=== PATIENT | female | born 1940 | race Caucasian/White ===

== ENCOUNTER → 2018-02-18 10:32 | Outpatient (CLI) | payer MEDICARE, SELFPAY ==
[2018-02-18 11:58] LABS: Thyroid Stim Hormone (TSH) 0.88 uIU/mL (0.358-3.74)
== END ==
PROVIDERS: Family Provider Family Medicine; PCP Family Medicine; Visit Provider Family Medicine
DX: E03.9 Hypothyroidism, unspecified (principal)
CPT/HCPCS: 36415; 84443

== ENCOUNTER → 2018-04-30 11:04 | Outpatient (CLI) | payer MEDICARE, SELFPAY | PROVIDERS: Family Provider Family Medicine; PCP Family Medicine; Visit Provider Family Medicine | DX: Z12.11 Encounter for screening for malignant neoplasm of colon (principal) | CPT/HCPCS: 82274 ==

== ENCOUNTER → 2018-10-01 08:24 | Outpatient (CLI) | payer MEDICARE, SELFPAY ==
[2018-09-24 14:26] VITALS: BMI 31.3
[2018-10-01 12:38] LABS: Absolute Lymphocyte Count 1.71 X10^3/ul (0.83-4.51); Absolute Neutrophil Count 2.7 X10^3/uL (2.0-7.7); Basophil# 0.08 X10^3/uL; Basophil% 1.5 % (0-1); Eosinophil# 0.33 X10^3/uL; Eosinophils% 6.3 % (0-5); Hematocrit 37.5 % (37-47); Hemoglobin 11.6 g/dl (12.0-15.0); Lymphocyte # 1.71 X10^3/ul (4.0); Lymphocyte % 32.9 % (19-41); Mean Corp Hgb Conc 30.9 g/gl (32-36); Mean Corpuscular Hgb 31.2 pg (27.0-32.0); Mean Corpuscular Volume 100.8 fL (81-99); Mean Platelet Vol. 10.6 fl (6.2-12.0); Monocyte# 0.38 X10^3/uL; Monocyte% 7.3 % (0-10); Neutrophil # 2.69 X10^3/uL (2.7-7.7); Neutrophil % 51.8 % (47-70); Platelet Count 221 K/mm3 (150-450); RBC Distribution Width CV 14.5 % (11.6-14.6); RBC Distribution Width SD 52.8 fl (35.1-43.9); Red Blood Count 3.72 M/mm3 (4.2-5.4); White Blood Count 5.2 K/mm3 (4.4-11.0)
[2018-10-01 12:40] LABS: POSITIVE COUNT NO; POSITIVE DIFFERENTIAL NO; POSITIVE MORPHOLOGY NO
[2018-10-01 13:12] LABS: AST(SGOT) 18 U/L (15-37); Alanine Aminotransfer ALT/SGPT 21 U/L (13-56); Albumin, Serum 3.5 g/dL (3.2-5.0); Alkaline Phosphatase 76 U/L (45-117); Anion Gap 12 (5-15); BUN 28 mg/dL (7-18); BUN/Creat Ratio 23.7 RATIO (10-20); Calcium,Total 8.7 mg/dL (8.5-10.1); Chloride 109 mmol/L (98-107); Cholesterol 152 mg/dL (200); Creatinine, Serum 1.18 mg/dL (0.55-1.02); EST Glomerular Filtration Rate 47 mL/min (>60); Est Glom Filt Rate - Afr Amer 57 mL/min (>60); Globulin 3.4 g/dL (2.2-4.2); Glucose 87 mg/dL (74-106); High Density Lipoprotein 48 mg/dL; Potassium 3.3 mmol/L (3.5-5.1); Protein, Total 6.9 g/dL (6.4-8.2); Sodium Level 145 mmol/L (136-145); Thyroid Stim Hormone (TSH) 1.91 uIU/mL (0.358-3.74); Triglycerides 139 mg/dL; Uric Acid 5.1 mg/dL (2.6-6.0); Very Low Density Lipoprotein 28 mg/dL (5-40)
== END ==
PROVIDERS: Family Provider Family Medicine; PCP Family Medicine; Visit Provider Family Medicine
DX: I50.9 Heart failure, unspecified (principal); R55 Syncope and collapse; E03.9 Hypothyroidism, unspecified; E11.9 Type 2 diabetes mellitus without complications; M10.9 Gout, unspecified
CPT/HCPCS: 36415; 80053; 80061; 83036; 84443; 84550; 85025

== ENCOUNTER → 2018-10-03 09:45 | Outpatient (CLI) | payer MEDICARE, SELFPAY ==
[2018-09-24 14:26] VITALS: BMI 31.3
--- NOTE | 2018-10-03 09:56 | BD_ITS ---
STUDY: DUAL ENERGY X-RAY ABSORPTIOMETRY / DXA REASON FOR EXAM: Female, 78 years old. The patient is postmenopausal. Loss of height. TECHNIQUE: Bone Mineral Density (BMD) measurements of lumbar spine and bilateral hips were obtained. COMPARISON: Comparison is made with prior study dated April 23, 2014. FINDINGS: Lumbar Spine (L1-L4): g/cm2 (0.954) / T-score (-2.1) / Z-score (-0.2) Findings are suggestive of osteopenia with a moderate fracture risk. Left Femur Total: g/cm2 (0.735) / T-score (-2.2) / Z-score (-0.2) Left Femoral Neck: g/cm2 (0.748) / T-score (-2.1) / Z-score (0.0) Right Femur Total: g/cm2 (0.786) / T-score (-1.8) / Z-score (0.2) Right Femoral Neck: g/cm2 (0.800) / T-score (-1.7) / Z-score (0.4) The T-Scores on the most recent prior examination were: Lumbar Spine (L1-L4): There has been worsening of bone density since the previous examination. Left Femur Total: which represents a worsening of 16.3%. Right Femur Total: which represents a worsening of 9.8%. BD/Dexa Bone Density Study IMPRESSION: The patient is considered osteopenic as outlined below according to World Todd Organization (WHO) criteria with a moderate fracture risk. There has been worsening of bone density since the previous examination. Reference Information: The T-score is the number of standard deviations above or below the standard which is normal for young adults at their peak bone mineral density. The World Health Organization (WHO) interprets the T-scores as follows: Above -1 Normal bone density Between -1 and -2.5 Osteopenia Equal to / or below -2.5 Osteoporosis As a practical clinical guideline, osteopenia may be graded as follows: Mild -1 through -1.5 Moderate -1.6 through -2.0 Severe -2.1 through -2.4 The Z-score is the number of standard deviations above or below age-matched controls. A Z-score of less than -1.5 would be considered abnormal. References: 1. NIH Osteoporosis and Related Bone Diseases http://www.osteo.org 2. International Society for Clinical Densitometry http://www.iscd.org 3. National Osteoporosis Foundation http://www.nof.org Electronically Signed: Carlos Weeks, at 15:34 EST , Service support ,
== END ==
PROVIDERS: Family Provider Family Medicine; PCP Family Medicine; Referring Provider Family Medicine; Visit Provider Family Medicine
DX: Z78.0 Asymptomatic menopausal state (principal); M85.80 Other specified disorders of bone density and structure, unspecified site
CPT/HCPCS: 77080

== ENCOUNTER → 2018-12-24 | Outpatient (CLI) | payer MEDICARE, SELFPAY ==
[2018-12-24 13:26] VITALS: BMI 31.3
[2018-12-24 16:34] LABS: Microalbumin:Creatinine Ratio 193.9 mg/g CRE (<30 mg/g CRE)
== END | disposition home or self-care (01) ==
PROVIDERS: Family Provider Family Medicine; PCP Family Medicine; Referring Provider Family Medicine; Visit Provider Family Medicine
DX: E66.9 Obesity, unspecified (principal)
CPT/HCPCS: 82043; 82570

== ENCOUNTER → 2019-05-20 11:48 | Outpatient (CLI) | payer MEDICARE, SELFPAY ==
[2019-05-20 11:18] VITALS: BMI 32.4
[2019-05-20 13:02] LABS: Anion Gap 7 (5-15); BUN 37 mg/dL (7-18); Calcium,Total 9.4 mg/dL (8.5-10.1); Chloride 106 mmol/L (98-107); Creatinine, Serum 1.32 mg/dL (0.55-1.02); EST Glomerular Filtration Rate 41 mL/min (>60); Est Glom Filt Rate - Afr Amer 50 mL/min (>60); Glucose 84 mg/dL (74-106); Potassium 3.5 mmol/L (3.5-5.1); Sodium Level 137 mmol/L (136-145)
== END ==
PROVIDERS: Family Provider Family Medicine; PCP Family Medicine; Visit Provider Family Medicine
DX: E87.6 Hypokalemia (principal)
CPT/HCPCS: 36415; 80048

== ENCOUNTER → 2019-05-26 11:13 | Outpatient (CLI) | payer MEDICARE, SELFPAY ==
[2019-05-20 11:18] VITALS: BMI 32.4
== END ==
PROVIDERS: Family Provider Family Medicine; PCP Family Medicine; Referring Provider Family Medicine; Visit Provider Family Medicine
DX: R55 Syncope and collapse (principal)
CPT/HCPCS: 93225; 93226

== ENCOUNTER → 2019-09-16 10:09 | Outpatient (CLI) | payer MEDICARE, SELFPAY ==
[2019-09-16 09:42] VITALS: BMI 32.4
[2019-09-16 13:47] LABS: AST(SGOT) 19 U/L (15-37); Alanine Aminotransfer ALT/SGPT 24 U/L (13-56); Albumin, Serum 3.5 g/dL (3.2-5.0); Alkaline Phosphatase 60 U/L (45-117); Anion Gap 8 (5-15); BUN 31 mg/dL (7-18); BUN/Creat Ratio 25.2 RATIO (10-20); Calcium,Total 9.3 mg/dL (8.5-10.1); Chloride 113 mmol/L (98-107); Creatinine, Serum 1.23 mg/dL (0.55-1.02); EST Glomerular Filtration Rate 45 mL/min (>60); Est Glom Filt Rate - Afr Amer 54 mL/min (>60); Globulin 3.5 g/dL (2.2-4.2); Glucose 98 mg/dL (74-106); Potassium 3.9 mmol/L (3.5-5.1); Sodium Level 143 mmol/L (136-145); Thyroid Stim Hormone (TSH) 2.61 uIU/mL (0.358-3.74)
== END ==
PROVIDERS: PCP Family Medicine; Referring Provider Family Medicine; Visit Provider Family Medicine
DX: I50.9 Heart failure, unspecified (principal); E03.9 Hypothyroidism, unspecified
CPT/HCPCS: 36415; 80053; 84443

== ENCOUNTER → 2019-10-08 10:32 | Outpatient (CLI) | payer MEDICARE, SELFPAY ==
[2019-10-08 10:02] VITALS: BMI 32.4
[2019-10-08 12:41] LABS: Glucose 91 mg/dL (74-106)
[2019-10-08 13:35] LABS: Hemoglobin A1c 5.4 % (4.2-6.3)
== END ==
PROVIDERS: PCP Family Medicine; Referring Provider Family Medicine; Visit Provider Family Medicine
DX: E16.2 Hypoglycemia, unspecified (principal)
CPT/HCPCS: 36415; 82947; 83036

== ENCOUNTER → 2020-06-03 13:36 | Outpatient (CLI) | payer MEDICARE, SELFPAY ==
[2020-06-03 12:52] VITALS: BMI 33.2
[2020-06-03 15:35] LABS: ALB/GLOB Ratio 1.1 RATIO (0.9-2.4); AST(SGOT) 17 U/L (15-37); Alanine Aminotransfer ALT/SGPT 20 U/L (13-56); Albumin, Serum 3.7 g/dL (3.2-5.0); Alkaline Phosphatase 64 U/L (45-117); Anion Gap 8 (5-15); BUN 32 mg/dL (7-18); BUN/Creat Ratio 23.5 RATIO (10-20); Calcium,Total 9.3 mg/dL (8.5-10.1); Chloride 111 mmol/L (98-107); Creatinine, Serum 1.36 mg/dL (0.55-1.02); EST Glomerular Filtration Rate 40 mL/min (>60); Est Glom Filt Rate - Afr Amer 48 mL/min (>60); Globulin 3.4 g/dL (2.2-4.2); Glucose 118 mg/dL (74-106); Potassium 3.8 mmol/L (3.5-5.1); Protein, Total 7.1 g/dL (6.4-8.2); Sodium Level 142 mmol/L (136-145)
== END ==
PROVIDERS: PCP Family Medicine; Referring Provider Family Medicine; Visit Provider Family Medicine
DX: E78.2 Mixed hyperlipidemia (principal); E03.9 Hypothyroidism, unspecified
CPT/HCPCS: 36415; 80053

== ENCOUNTER → 2020-07-16 09:14 | Outpatient (CLI) | payer MEDICARE, SELFPAY ==
[2020-06-03 12:52] VITALS: BMI 33.2
[2020-07-08 09:56] VITALS: BMI 33.0
--- NOTE | 2020-07-16 09:20 | STEWCON_ITS ---
Reason For Study: CHEST PAIN Stress Results Protocol: Tone Protocol WITH DEFINITY Maximum Predicted HR: 139 bpm Target HR: 118 bpm % Maximum Predicted HR: 98 % DurationHeart Rate Stage (mm:ss) (bpm) BP Comment BASELINE 72 122/722 CC DEFINITY FOR ENTIRE TEST STAGE 1 3:42 136 146/80SOB AND LEG FATIGUE RECOVERY 84 138/82 Stress Duration: 3:42 mm:ss Maximum Stress HR: 136 bpm Baseline Echocardiogram Findings Stress Echo Wall motion Data Resting WM Intermediate WM Stress WM Interpretation Summary Exercise stress echo. 80-year-old lady with a history of hypertension and hyperlipidemia. Stress protocol: Resting EKG demonstrates normal sinus rhythm with a rate of 72 bpm normal intervals are noted. Resting blood pressure was 122/72 mmHg. The patient exercised according to the regular Tone protocol for a total duration of 3 minutes and 42 seconds. The maximum heart rate attained was 200 bpm which was 143% of max impacted heart rate. The maximum workload was 4.6 metabolic equivalents. The patient maintained sinus rhythm throughout the recording with occasional premature ventricular complexes noted especially during recovery. No clinical angina was noted the test was terminated due to dyspnea and inability to stand. The peak blood pressure was 182/92 mmHg. Stress echocardiogram. Stress echocardiographic images were performed with Definity enhancement and demonstrated an ejection fraction of approximately 45% with mild hypokinesis of the distal anterior wall and apex. The rest of the other tafoya appeared to be normally functioning. The stress echocardiographic images demonstrated worsening of contractility involving the distal anterior wall and apex suggesting ischemia in this territory. The other tafoya appeared to perfuse well. The estimated ejection fraction was 55%. Conclusion: Definity enhanced stress echocardiogram with evidence of anterior apical ischemia noted. Moderate functional aerobic impairment. Ordering Physician: Roni Greer Referring Physician: Roni Greer Performed By: Alvaro Paz RCS
== END ==
PROVIDERS: PCP Family Medicine; Referring Provider Family Medicine; Visit Provider Family Medicine
DX: R07.9 Chest pain, unspecified (principal)
CPT/HCPCS: 93017; 93350; Q9957; A4216; C8928

== ENCOUNTER → 2021-03-09 13:47 | Outpatient (CLI) | payer MEDICARE, SELFPAY ==
[2021-02-24 15:12] VITALS: BMI 35.2
--- NOTE | 2021-03-09 13:50 | ECHOD_ITS ---
Reason For Study: Edema Procedure This was a 2D Doppler, Color Flow transthoracic echocardiogram. Exam performed in department. Left Ventricle Normal LV size. Mild concentric left ventricular hypertrophy. Left ventricular systolic function is normal. The estimated ejection fraction is 55 %. Unable to assess diastolic dysfunction. No regional wall motion abnormalities noted. Right Ventricle Normal RV size. Normal systolic function. Atria The left atrium is moderately enlarged. Normal right atrium. No doppler evidence for ASD. Mitral Valve There is mild mitral annular calcification. Extension the mitral annular calcification on the base of the posterior mitral valve leaflet. Trivial mitral valve insufficiency. Tricuspid Valve Normal tricuspid valve. Trivial tricuspid valve insufficiency. Unable to estimate RV systolic pressure due to insufficient tricuspid regurgitant envelope. Aortic Valve Trisinus/trileaflet aortic valve. Mild focal aortic valve calcification. Trivial aortic valve insufficiency. Pulmonic Valve The pulmonic valve is not well visualized. Great Vessels Normal sized aortic root. Pericardium/Pleural No pericardial effusion. MMode/2D Measurements & Calculations LVIDd: 4.0 cm IVSd: 1.3 cm Ao root diam: 3.1 cm LVIDs: 2.8 cm LVPWd: 1.5 cm RVDd: 2.9 cm FS: 29.7 % LAV(MOD-bp): 87.2 ml LVAd ap4: 22.9 cm2 LVAd ap2: 22.8 cm2 LAV(MOD-bp) Indexed: 43.4 ml/m2 LVLd ap4: 7.0 cm LVLd ap2: 7.3 cm LAV(MOD-sp2): 76.4 ml EDV(MOD-sp4): 60.4 ml EDV(MOD-sp2): 57.9 ml LAV(MOD-sp4): 84.0 ml EDV(sp4-el): 63.3 ml EDV(sp2-el): 60.6 ml LVAs ap4: 13.2 cm2 LVAs ap2: 14.1 cm2 LVLs ap4: 6.0 cm LVLs ap2: 6.6 cm ESV(MOD-sp4): 24.2 ml ESV(MOD-sp2): 24.3 ml ESV(sp4-el): 24.6 ml ESV(sp2-el): 25.5 ml EF(MOD-sp4): 59.9 % EF(MOD-sp2): 58.1 % EF(sp4-el): 61.2 % SV(MOD-sp4): 36.2 ml SV(MOD-sp2): 33.7 ml SV(sp4-el): 38.7 ml LA dimension(2D): 5.0 cm LA A4 area: 26.6 cm2 RA A4 area: 16.2 cm2 Doppler Measurements & Calculations MV E max kizzy: 113.1 cm/sec Ao V2 max: 131.4 cm/sec LV V1 max: 104.1 cm/sec Ao max P.9 mmHg LV V1 max P.3 mmHg Ao V2 mean: 96.2 cm/sec Ao mean P.0 mmHg Ao V2 VTI: 26.1 cm PA V2 max: 78.3 cm/sec ECHO/Echo Complete Interpretation Summary Left ventricular systolic function is normal. The estimated ejection fraction is 55 %. Mild concentric left ventricular hypertrophy. The left atrium is moderately enlarged. There is mild mitral annular calcification. Extension the mitral annular calcification on the base of the posterior mitral valve leaflet. Trivial mitral valve insufficiency. Trivial tricuspid valve insufficiency. Mild focal aortic valve calcification. Trivial aortic valve insufficiency. Unable to estimate RV systolic pressure due to insufficient tricuspid regurgita nt envelope. Unable to assess diastolic dysfunction. Ordering Physician: Elliott Farley Referring Physician: Roni Greer Performed By: Estela Frausto, RDCS, RVT
== END ==
PROVIDERS: PCP Family Medicine; Referring Provider Internal Medicine Cardiovascular Disease; Visit Provider Internal Medicine Cardiovascular Disease
DX: I50.22 Chronic systolic (congestive) heart failure (principal); R60.9 Edema, unspecified; I42.8 Other cardiomyopathies; I48.91 Unspecified atrial fibrillation; E78.2 Mixed hyperlipidemia
CPT/HCPCS: 93306

== ENCOUNTER 2021-11-29 10:00 | Outpatient (RCR) | payer MEDICARE, SELFPAY ==
[2021-11-15 10:05] VITALS: BP 153/77; PULSE 82; RESP 16; TEMP 36.7; BMI 33.3
--- NOTE | 2021-11-15 16:54 | HP.PCM_ITS ---
History of Present Illness Date of Service: 11/15/21 Chief Complaint: Severe swelling and edema of the lower extremities bilaterally History of Wound: This is an 81-year-old female who presented with swelling and edema in both lower extremities. This has been occurring for approximately 3 years. It has become progressively more severe. During the last several years, the patient has become less active. She spends long periods of time sitting at home throughout the day. She ambulates very slowly and deliberately, shuffling her feet. She claims to sleep on a flat mattress at night. The swelling is said to be worse late each day. She has previously experienced an ulceration in the left distal pretibial area, approximately 6 months ago, which healed spontaneously. She has a history of superficial thrombophlebitis in the left leg, approximately 30 years ago. She underwent left lower extremity vein stripping approximately 20 years ago as well. [facility] Medical History (Updated 11/15/21 @ 17:[address] Judd Espino MD) Abnormal stress test Anemia Arthritis Atrial fibrillation with RVR (12/03/14) Bray angioma Chronic kidney disease (CKD) Chronic systolic (congestive) heart failure Debility Dependent edema Eczema Edema Hemorrhoids History of DVT (deep vein thrombosis) History of non-ST elevation myocardial infarction (NSTEMI) (12/03/14) HLD (hyperlipidemia) Hyperpigmentation Hypomagnesemia Hypothyroidism Inactivity Leg edema Leg swelling Non-ischemic cardiomyopathy Obesity Osteoporosis Osteoporosis Postoperative atrial fibrillation (12/03/14) Postphlebitic syndrome with inflammation Rosacea Syncope Weight loss, abnormal Home Medications docusate sodium 100 mg capsule 100 mg PO DAILY #90 cap 10/25/17 [Rx Last Taken Unknown] vit [id number] 500 mg-50 mg-25 mg-40 mg tablet tab PO 04/06/20 [History Last Taken Unknown] calcium carbonate 600 mg calcium (1,500 mg) tablet 600 mg PO DAILY #90 tab 10/06/20 [Rx Last Taken Unknown] aspirin 81 mg tablet,delayed release 81 mg PO DAILY #90 tablet 11/18/20 [Rx Last Taken Unknown] topiramate 50 mg tablet 50 mg PO QHS #30 tab 12/15/20 [Rx Last Taken Unknown] metoprolol tartrate 25 mg tablet 25 mg PO BID #180 tab 05/31/21 [Rx Last Taken Unknown] potassium chloride 10 mEq capsule,extended release 10 meq PO BID #180 cap 06/07/21 [Rx Last Taken Unknown] liraglutide 0.6 mg/0.1 mL (18 mg/3 mL) subcutaneous pen injector 1.8 mg SC Q24H #9 ml 06/08/21 [Rx Last Taken Unknown] pravastatin 20 mg tablet 20 mg PO QHS #90 tab 06/08/21 [Rx Last Taken Unknown] celecoxib 200 mg capsule 200 mg PO QDAY #90 cap 07/13/21 [Rx Last Taken Unknown] hydrochlorothiazide 25 mg tablet 25 mg PO QAM #90 tab 07/13/21 [Rx Last Taken Unknown] levothyroxine 25 mcg tablet 25 mcg PO DAILY #90 tab 07/13/21 [Rx Last Taken Unknown] pen needle, diabetic 32 gauge x 1/5 #100 ea 07/13/21 [Rx Last Taken Unknown] allopurinol 100 mg tablet 100 mg PO DAILY #90 tab 09/13/21 [Rx Last Taken Unknown] naltrexone 8 mg-bupropion 90 mg tablet,extended release 1 tab PO ONCE #30 tab 09/13/21 [Rx Last Taken Unknown] Allergy/AdvReac Type Severity Reaction Status Date / Time fluoxetine HCl [From Prozac] Allergy Unknown Verified 09/13/21 09:53 Family History Mother Hypertension Heart disease Colon cancer Surgical History History of knee replacement History of vein stripping Social History Smoking Status: Never smoker how long ago did patient quit smokin alcohol intake: current alcohol intake frequency: holidays/special occasions only substance use type: does not use what type of physical activity do you participate in: aerobics and weight training frequency: 3-4 times per week Vital Signs Vital Signs Vital Signs: 11/15/21 10:05 Temperature 98.0 F Temperature Source Temporal Pulse Rate 82 Respiratory Rate 16 Blood Pressure 153/77 H Blood Pressure Mean 102 Blood Pressure Source Monitor Blood Pressure Position Semi-Fowlers Blood Pressure Location Left Arm Weight Weight: 200 lb Body Mass Index (BMI) 33.3 Physical Exam Const alert, oriented x3, no apparent distress and well nourished Constitutional Narrative: The patient is obese. General Appearance: cooperative, comfortable, well kempt and well developed Orientation / Consciousness: awake, oriented to person, oriented to place and oriented to time HEENT normocephalic and head/scalp atraumatic Head and Scalp: normal to inspection, normocephalic and atraumatic External Ear: external ears normal Eyes PERRL and EOMs intact bilaterally General Eye: normal appearance of both eyes Resp normal respiratory effort, normal air movement, no retractions and no use of accessory muscles Effort and Inspection: able to speak in complete sentences Extremity no calf tenderness General Extremity: Negative for clubbing or cyanosis Skin Wound Narrative: There are no toney open wounds or ulcerations in the patient's lower extremities. Bilateral lower extremity edema is noted. Bilateral hemosiderin staining and lipodermatosclerosis are noted in the gaiter areas bilaterally, particularly on the left. A well-healed vertical total knee replacement scar is noted on the right. Neuro oriented x3, CN's II-XII intact bilaterally and moves all extremities Sensorium / Orientation: awake, alert, oriented to person, oriented to place and oriented to time Psych Appearance: grossly normal and appropriate Attitude: calm Activity / Motor Behavior: appropriate eye contact Speech: normal speech Mood & Affect: euthymic mood Thought Process: normal thought process Thought Content: normal thought content Attention / Concentration: attention grossly intact Debridement Note Debridement Note No debridement was completed: No debridement was completed today (There are no open wounds or ulcerations.) Post-Debridement Measurements and Additional Note: Post-Debridement Measurements/Treatment - Nurse 1 - General Ulcer Assessment Start: 11/15/21 10:05 Freq: Status: Active Protocol: [email or web address] Activity Type Activity Date Activity User E-Sign Co-Sign Detail Recorded Client Recorded Date Recorded By Document 11/15/21 10:05 ZACHERY [id number] 11/15/21 10:24 ZACHERY 11/15/21 10:05 - Today's Visit Information Type of service Initial Visit Arrival Mode Ambulatory Patient Identification Verified (Name & Yes ) Patient Requires Transmission-Based No Precautions Height and Weight Height 5 ft 5 in Weight 200 lb Weight in Pounds 200.0 lbs Body Mass Index (BMI) 33.3 BMI Classification Obese BSA - Justine 1.98 Vital Signs Temperature (97.8 F-99.1 F) 98.0 F Temperature Source Temporal Pulse Rate (60-100) 82 Pulse Location Monitor Respiratory Rate (12-18) 16 Respiratory rate source Observation Blood Pressure (90/60-120/80) 153/77 H Blood Pressure Mean 102 Source Monitor Position Semi-Fowlers Blood Pressure Location Left Arm History Since Last Visit- (Skip if this is Patient's initial visit) Left Footwear Regular Shoe Right Footwear Regular Shoe Pain Scale: 0-10 Numeric Is Patient Pain Free? Yes Lower Extremity Assessment/ Foot Assessment/ Toe Nail Assessment Right -Posterior Tibial Palpable Yes -Posterior Tibial Doppler Multiphasic -Dorsalis Pedis Palpable Yes -Dorsalis Pedis Doppler Multiphasic -Extremity Color Hyperpigmented, Hemosiderin -Hair Growth on Legs No -Hair Growth on Toes No -Temperature of Extremity Warm -Capillary Refill Greater than 3 Seconds -Dependent Rubor Yes -Blanched when Elevated No -Lipodermatosclerosis No -Other Deformity No -Prior Foot Ulcer No -Charcot Joint No -Prior Amputation No -Thick Yes -Discolored Yes -Deformed Yes -Improper Length & Hygeine No Left -Posterior Tibial Palpable Yes -Posterior Tibial Doppler Multiphasic -Dorsalis Pedis Palpable Yes -Dorsalis Pedis Doppler Multiphasic -Extremity Color Hyperpigmented, Hemosiderin -Hair Growth on Legs No -Hair Growth on Toes No -Temperature of Extremity Warm -Capillary Refill Greater than 3 Seconds -Dependent Rubor Yes -Blanched when Elevated No -Lipodermatosclerosis No -Other Deformity No -Prior Foot Ulcer No -Charcot Joint No -Prior Amputation No -Thick Yes -Discolored Yes -Deformed Yes -Improper Length & Hygeine No Communication Assessment Preferred language Welsh Flight Superintendent Required No Able to Read Yes Able to Write Yes Communication Tools None Caregiver Communication Skills No Impairment Impairment Right Hearing Abillity Normal Left Hearing Abillity Normal Visual Assistive Devices Glasses Teaching Assessment Preferences Verbal,Written, Audio/Visual, Demonstration Barriers to Learning None Readiness To Learn Good Willingness to Engage in Self Management Med Activies Readiness to Engage in Self Management Med Activities Anxiety Level Anxious Cooperation Cooperative Perception Coherent Interest in Health Problem Asks Questions Education Importance Acknowledges Need Does Patient Smoke tobacco or other No substances Smoking Status Never smoker Is Patient Diabetic No Functional Assessment Recent Decline in Ability to Perform Denies Any Declines Culture/Sabianist/Folding Machine Operator Cultural/Sabianist Needs that may affect No Treatment Plan Would you allow our hospital waste management recycling technician to No meet you for the purpose of spiritual/ emotional support? Folding Machine Operator to contact place of nondenominational No Teaching: Wound Center [facility] Orientation/ Contacting Physician -Person Taught Patient -Teaching Method Discussion, Demonstration -Response to teaching Return demonstration, Verbalize understanding - Nurse 1 - General Ulcer Measurement Start: 11/15/21 10:05 Freq: Status: Active Protocol: Activity Type Activity Date Activity User E-Sign Co-Sign Detail Recorded Client Recorded Date Recorded By Document 11/15/21 10:05 [id number] 11/15/21 10:24 11/15/21 10:05 Wound Center Nurse 1 Lower Limb Edema Present Yes Right Calf (cm) 43.0 Right Ankle (cm) 24.2 Left Calf (cm) 44.1 Left Ankle (cm) 21.6 - Nurse 3 - General Ulcer D/C NN Start: 11/15/21 10:05 Freq: Status: Active Protocol: Activity Type Activity Date Activity User E-Sign Co-Sign Detail Recorded Client Recorded Date Recorded By Document 11/15/21 11:15 [id number] 11/15/21 11:15 11/15/21 11:15 Wound Care Nurse 3 Left -Lotion applied to leg before Yes compression wrap -Multi-Layered Wrap Application Multi-Layer Comp - Bilat ($ ) Pain Scale: 0-10 Numeric Is Patient Pain Free? Yes - Visit Discharge Discharge Condition Stable Ambulatory Status Ambulatory Transportation Private Auto Medication Reconcilliation completed & Yes provided to patient/care provider Clinical Summary of Care Provided Yes Assessment/Plan Assessment/Plan (1) Leg edema: CODE(S): R60.0 - Localized edema (2) Leg swelling: CODE(S): M79.89 - Other specified soft tissue disorders (3) Dependent edema: CODE(S): R60.9 - Edema, unspecified (4) Hyperpigmentation: CODE(S): L81.9 - Disorder of pigmentation, unspecified (5) Lipodermatosclerosis of left lower extremity: CODE(S): I83.12 - Varicose veins of left lower extremity with inflammation (6) Obesity (BMI 30.0-34.9): CODE(S): E66.9 - Obesity, unspecified (7) Non-ischemic cardiomyopathy: CODE(S): I42.8 - Other cardiomyopathies (8) Atrial fibrillation with RVR: CODE(S): I48.91 - Unspecified atrial fibrillation (9) History of non-ST elevation myocardial infarction (NSTEMI): CODE(S): I25.2 - Old myocardial infarction (10) Chronic systolic (congestive) heart failure: CODE(S): I50.22 - Chronic systolic (congestive) heart failure (11) HLD (hyperlipidemia): CODE(S): E78.5 - Hyperlipidemia, unspecified QUALIFIERS: Hyperlipidemia type: mixed hyperlipidemia Qualified Code(s): E78.2 - Mixed hyperlipidemia (12) Hypothyroidism: CODE(S): E03.9 - Hypothyroidism, unspecified QUALIFIERS: Hypothyroidism type: acquired Qualified Code(s): E03.9 - Hypothyroidism, unspecified (13) Chronic kidney disease (CKD): CODE(S): N18.9 - Chronic kidney disease, unspecified QUALIFIERS: Chronic kidney disease stage: stage 2 (mild) Qualified Code(s): N18.2 - Chronic kidney disease, stage 2 (mild) (14) Postphlebitic syndrome with inflammation: CODE(S): I87.029 - Postthrombotic syndrome with inflammation of unspecified lower extremity (15) Debility: CODE(S): R53.81 - Other malaise (16) Inactivity: CODE(S): Z72.3 - Lack of physical exercise (17) Osteoporosis: CODE(S): M81.0 - Age-related osteoporosis without current pathological fracture PLAN: This is an 81-year-old female who was advanced age, limited activity, and long periods of daily sitting each day have resulted in chronic lower extremity swelling and associated skin changes. The skin changes include hemosiderin staining, hyperpigmentation, and lipodermatosclerosis. She has a recent history of transient ulceration in the distal left lower extremity, which has spontaneously healed. We have discussed a management protocol, which is to include leg elevation. Patient's legs are to be elevated to heart level, or higher. This is to be implemented while sleeping, and as much as possible during daytime hours. Activity has been encouraged, though the patient's debility and physical limitations are unlikely to allow significant enhancement of activity. The patient is to avoid prolonged idle sitting and standing. Weight loss has been recommended. We are to implement compression to the lower extremities by means of 3M 2 layer compression wraps, which will be changed twice weekly. Patient is to return in 1 week for reassessment. It is anticipated that the aforementioned measures will diminish the swelling and edema in the patient's lower extremities, following which we can employ the use of CircAid Velcro compression garments or graduated compression stockings for long-term use, in an effort to minimize swelling in the patient's lower extremities long-term. Total time: 29 minutes
[2021-11-18 11:25] VITALS: BMI 33.3
[2021-11-18 11:26] VITALS: BP 125/87; PULSE 68; TEMP 36.1; BMI 33.3
[2021-11-23 08:11] VITALS: BP 166/72; PULSE 73; RESP 16; TEMP 36.6; BMI 33.3
[2021-11-29 10:05] VITALS: BP 187/75; PULSE 79; TEMP 36.4; BMI 33.3
--- NOTE | 2021-11-29 13:00 | PCM.WC.HP ---
History of Present Illness Date of Service: 11/29/21 Chief Complaint: Severe swelling and edema of the lower extremities bilaterally History of Wound: This is an 81-year-old female who presented with swelling and edema in both lower extremities. This has been occurring for approximately 3 years. It has become progressively more severe. During the last several years, the patient has become less active. She spends long periods of time sitting at home throughout the day. She ambulates very slowly and deliberately, shuffling her feet. She claims to sleep on a flat mattress at night. The swelling is said to be worse late each day. She has previously experienced an ulceration in the left distal pretibial area, approximately 6 months ago, which healed spontaneously. She has a history of superficial thrombophlebitis in the left leg, approximately 30 years ago. She underwent left lower extremity vein stripping approximately 20 years ago as well. [facility] Medical History Abnormal stress test Anemia Arthritis Atrial fibrillation with RVR (12/03/14) Bray angioma Chronic kidney disease (CKD) Chronic systolic (congestive) heart failure Debility Dependent edema Eczema Edema Hemorrhoids History of DVT (deep vein thrombosis) History of non-ST elevation myocardial infarction (NSTEMI) (12/03/14) HLD (hyperlipidemia) Hyperpigmentation Hypomagnesemia Hypothyroidism Inactivity Leg edema Leg swelling Non-ischemic cardiomyopathy Obesity Osteoporosis Osteoporosis Postoperative atrial fibrillation (12/03/14) Postphlebitic syndrome with inflammation Rosacea Syncope Weight loss, abnormal Home Medications docusate sodium 100 mg capsule 100 mg PO DAILY #90 cap 10/25/17 [Rx Last Taken Unknown] vit [id number] 500 mg-50 mg-25 mg-40 mg tablet tab PO 04/06/20 [History Last Taken Unknown] calcium carbonate 600 mg calcium (1,500 mg) tablet 600 mg PO DAILY #90 tab 10/06/20 [Rx Last Taken Unknown] aspirin 81 mg tablet,delayed release 81 mg PO DAILY #90 tablet 11/18/20 [Rx Last Taken Unknown] topiramate 50 mg tablet 50 mg PO QHS #30 tab 12/15/20 [Rx Last Taken Unknown] metoprolol tartrate 25 mg tablet 25 mg PO BID #180 tab 05/31/21 [Rx Last Taken Unknown] potassium chloride 10 mEq capsule,extended release 10 meq PO BID #180 cap 06/07/21 [Rx Last Taken Unknown] liraglutide 0.6 mg/0.1 mL (18 mg/3 mL) subcutaneous pen injector 1.8 mg SC Q24H #9 ml 06/08/21 [Rx Last Taken Unknown] pravastatin 20 mg tablet 20 mg PO QHS #90 tab 06/08/21 [Rx Last Taken Unknown] celecoxib 200 mg capsule 200 mg PO QDAY #90 cap 07/13/21 [Rx Last Taken Unknown] levothyroxine 25 mcg tablet 25 mcg PO DAILY #90 tab 07/13/21 [Rx Last Taken Unknown] pen needle, diabetic 32 gauge x 1/5 #100 ea 07/13/21 [Rx Last Taken Unknown] allopurinol 100 mg tablet 100 mg PO DAILY #90 tab 09/13/21 [Rx Last Taken Unknown] naltrexone 8 mg-bupropion 90 mg tablet,extended release 1 tab PO ONCE #30 tab 09/13/21 [Rx Last Taken Unknown] hydrochlorothiazide 25 mg tablet 25 mg PO QAM #90 tab 11/16/21 [Rx Last Taken Unknown] Allergy/AdvReac Type Severity Reaction Status Date / Time fluoxetine HCl [From Prozac] Allergy Unknown Verified 11/16/21 10:43 Family History Mother Hypertension Heart disease Colon cancer Surgical History History of knee replacement History of vein stripping Social History Smoking Status: Never smoker how long ago did patient quit smokin alcohol intake: current alcohol intake frequency: holidays/special occasions only substance use type: does not use what type of physical activity do you participate in: aerobics and weight training frequency: 3-4 times per week Vital Signs Vital Signs Vital Signs: 11/29/21 10:05 Temperature 97.5 F L Temperature Source Temporal Pulse Rate 79 Blood Pressure 187/75 H Blood Pressure Mean 112 Blood Pressure Source Monitor Blood Pressure Position Sitting Blood Pressure Location Right Arm Weight Weight: 200 lb Body Mass Index (BMI) 33.3 Physical Exam Const alert, oriented x3, no apparent distress and well nourished Constitutional Narrative: The patient is obese. General Appearance: cooperative, comfortable, well kempt and well developed Orientation / Consciousness: awake, oriented to person, oriented to place and oriented to time HEENT normocephalic and head/scalp atraumatic Head and Scalp: normal to inspection, normocephalic and atraumatic External Ear: external ears normal Eyes PERRL and EOMs intact bilaterally General Eye: normal appearance of both eyes Resp normal respiratory effort, normal air movement, no retractions and no use of accessory muscles Effort and Inspection: able to speak in complete sentences Extremity no calf tenderness Extremity Narrative: There are no open wounds or ulcerations in the patient's lower extremities. Moderate swelling and edema are noted in the patient's lower extremities bilaterally. Hemosiderin staining and lipodermatosclerosis are noted in the gaiter areas bilaterally, particularly on the left. A well-healed vertical total knee replacement scar is noted on the right. General Extremity: Negative for clubbing or cyanosis Skin Wound Narrative: There are no open wounds or ulcerations in the lower extremities. Neuro oriented x3, CN's II-XII intact bilaterally and moves all extremities Sensorium / Orientation: awake, alert, oriented to person, oriented to place and oriented to time Psych Appearance: grossly normal and appropriate Attitude: calm Activity / Motor Behavior: appropriate eye contact Speech: normal speech Mood & Affect: euthymic mood Thought Process: normal thought process Thought Content: normal thought content Attention / Concentration: attention grossly intact Debridement Note Debridement Note No debridement was completed: No debridement was completed today (There are no open wounds or ulcerations.) Post-Debridement Measurements and Additional Note: Post-Debridement Measurements/Treatment BRY - Nurse 1 - General Ulcer Assessment Start: 11/15/21 10:05 Freq: Status: Active Protocol: MARY JO Activity Type Activity Date Activity User E-Sign Co-Sign Detail Recorded Client Recorded Date Recorded By Document 11/15/21 10:05 ZACHERY [id number] 11/15/21 10:24 JF Document 11/18/21 11:25 KR [id number] 11/18/21 11:26 KR Document 11/18/21 11:26 KR [id number] 11/18/21 11:27 KR Document 11/23/21 08:11 [facility] [id number] 11/23/21 08:17 BM Document 11/29/21 10:05 KR [id number] 11/29/21 10:10 KR 11/15/21 11/18/21 11/18/21 10:05 11:25 11:26 WC - Today's Visit Information Type of service Initial Visit Nurse-only Visit Arrival Mode Ambulatory Ambulatory,Cane Transfer Assistance Patient Identification Verified (Name & Yes Yes ) Patient Requires Transmission-Based No Precautions Height and Weight Height 5 ft 5 in Weight 200 lb Weight in Pounds 200.0 lbs Body Mass Index (BMI) 33.3 33.3 33.3 BMI Classification Obese Obese Obese BSA - Justine 1.98 Vital Signs Temperature (97.8 F-99.1 F) 98.0 F 97.0 F L Temperature Source Temporal Temporal Temporal Pulse Rate (60-100) 82 68 Pulse Location Monitor Monitor Monitor Respiratory Rate (12-18) 16 Respiratory rate source Observation Oxygen Delivery Method Blood Pressure (90/60-120/80) 153/77 H 125/87 H Blood Pressure Mean 102 99 Source Monitor Monitor Monitor Position Semi-Fowlers Sitting Semi-Fowlers Blood Pressure Location Left Arm Left Arm Left Arm Have you changed medications since your No last visit? Any new allergies or adverse reactions No Had a fall/change in ADL's that may No increase risk of falls Signs or symptoms of abuse and/or No neglect since last visit Have you been in the hospital since your No last visit? Has dressing in place as prescribed Yes Has compression in place as prescribed Yes Has offloadiing in place as prescribed N/A Experienced any changes in pain level or No management History Since Last Visit- (Skip if this is Patient's initial visit) Left Footwear Regular Shoe Regular Shoe Right Footwear Regular Shoe Regular Shoe Pain Scale: 0-10 Numeric Is Patient Pain Free? Yes Yes Yes Lower Extremity Assessment/ Foot Assessment/ Toe Nail Assessment Right -Posterior Tibial Palpable Yes -Posterior Tibial Doppler Multiphasic -Dorsalis Pedis Palpable Yes -Dorsalis Pedis Doppler Multiphasic -Extremity Color Hyperpigmented, Hemosiderin -Hair Growth on Legs No -Hair Growth on Toes No -Temperature of Extremity Warm -Capillary Refill Greater than 3 Seconds -Dependent Rubor Yes -Blanched when Elevated No -Lipodermatosclerosis No -Other Deformity No -Prior Foot Ulcer No -Charcot Joint No -Prior Amputation No -Thick Yes -Discolored Yes -Deformed Yes -Improper Length & Hygeine No Left -Posterior Tibial Palpable Yes -Posterior Tibial Doppler Multiphasic -Dorsalis Pedis Palpable Yes -Dorsalis Pedis Doppler Multiphasic -Extremity Color Hyperpigmented, Hemosiderin -Hair Growth on Legs No -Hair Growth on Toes No -Temperature of Extremity Warm -Capillary Refill Greater than 3 Seconds -Dependent Rubor Yes -Blanched when Elevated No -Lipodermatosclerosis No -Other Deformity No -Prior Foot Ulcer No -Charcot Joint No -Prior Amputation No -Thick Yes -Discolored Yes -Deformed Yes -Improper Length & Hygeine No Communication Assessment Preferred language [place] Inspector Plating Required No Able to Read Yes Able to Write Yes Communication Tools None Caregiver Communication Skills No Impairment Impairment Right Hearing Abillity Normal Left Hearing Abillity Normal Visual Assistive Devices Glasses Teaching Assessment Preferences Verbal,Written, Audio/Visual, Demonstration Barriers to Learning None Readiness To Learn Good Willingness to Engage in Self Management Med Activies Readiness to Engage in Self Management Med Activities Anxiety Level Anxious Cooperation Cooperative Perception Coherent Interest in Health Problem Asks Questions Education Importance Acknowledges Need Does Patient Smoke tobacco or other No substances Smoking Status Never smoker Is Patient Diabetic No Functional Assessment Recent Decline in Ability to Perform Denies Any Declines Culture/Rastafarian/Office Machine Servicer Cultural/Rastafarian Needs that may affect No Treatment Plan Would you allow our hospital network admin to No meet you for the purpose of spiritual/ emotional support? Office Machine Servicer to contact place of episcopalian No Teaching: Wound Center [facility] Orientation/ Contacting Physician -Person Taught Patient -Teaching Method Discussion, Demonstration -Response to teaching Return demonstration, Verbalize understanding 11/23/21 11/29/21 08:11 10:05 - Today's Visit Information Type of service Nurse-only Follow-up Visit Visit (Physician/SCHOOL TEACHER ) Arrival Mode Ambulatory Ambulatory Transfer Assistance None Patient Identification Verified (Name & Yes Yes ) Patient Requires Transmission-Based No Precautions Height and Weight Height Weight Weight in Pounds Body Mass Index (BMI) 33.3 33.3 BMI Classification Obese Obese BSA - Justine Vital Signs Temperature (97.8 F-99.1 F) 97.8 F 97.5 F L Temperature Source Temporal Temporal Pulse Rate (60-100) 73 79 Pulse Location Monitor Monitor Respiratory Rate (12-18) 16 Respiratory rate source Observation Oxygen Delivery Method Room Air Blood Pressure (90/60-120/80) 166/72 H 187/75 H Blood Pressure Mean 103 112 Source Monitor Monitor Position Sitting Sitting Blood Pressure Location Left Arm Right Arm Have you changed medications since your No No last visit? Any new allergies or adverse reactions No No Had a fall/change in ADL's that may No No increase risk of falls Signs or symptoms of abuse and/or No No neglect since last visit Have you been in the hospital since your No No last visit? Has dressing in place as prescribed No No Has compression in place as prescribed No Yes Has offloadiing in place as prescribed N/A N/A Experienced any changes in pain level or No No management History Since Last Visit- (Skip if this is Patient's initial visit) Left Footwear Regular Shoe Regular Shoe Right Footwear Regular Shoe Regular Shoe Pain Scale: 0-10 Numeric Is Patient Pain Free? Yes Yes Lower Extremity Assessment/ Foot Assessment/ Toe Nail Assessment Right -Posterior Tibial Palpable -Posterior Tibial Doppler -Dorsalis Pedis Palpable -Dorsalis Pedis Doppler -Extremity Color -Hair Growth on Legs -Hair Growth on Toes -Temperature of Extremity -Capillary Refill -Dependent Rubor -Blanched when Elevated -Lipodermatosclerosis -Other Deformity -Prior Foot Ulcer -Charcot Joint -Prior Amputation -Thick -Discolored -Deformed -Improper Length & Hygeine Left -Posterior Tibial Palpable -Posterior Tibial Doppler -Dorsalis Pedis Palpable -Dorsalis Pedis Doppler -Extremity Color -Hair Growth on Legs -Hair Growth on Toes -Temperature of Extremity -Capillary Refill -Dependent Rubor -Blanched when Elevated -Lipodermatosclerosis -Other Deformity -Prior Foot Ulcer -Charcot Joint -Prior Amputation -Thick -Discolored -Deformed -Improper Length & Hygeine Communication Assessment Preferred professor of psychiatry Required Able to Read Able to Write Communication Tools Caregiver Communication Skills Impairment Right Hearing Abillity Left Hearing Abillity Visual Assistive Devices Teaching Assessment Preferences Barriers to Learning Readiness To Learn Willingness to Engage in Self Management Activies Readiness to Engage in Self Management Activities Anxiety Level Cooperation Perception Interest in Health Problem Education Importance Does Patient Smoke tobacco or other substances Smoking Status Is Patient Diabetic Functional Assessment Recent Decline in Ability to Perform Culture/Rastafarian/Office Machine Servicer Cultural/Rastafarian Needs that may affect Treatment Plan Would you allow our hospital network admin to meet you for the purpose of spiritual/ emotional support? Office Machine Servicer to contact place of episcopalian Teaching: Wound Center [facility] Orientation/ Contacting Physician -Person Taught -Teaching Method -Response to teaching - Nurse 1 - General Ulcer Measurement Start: 11/15/21 10:05 Freq: Status: Active Protocol: Activity Type Activity Date Activity User E-Sign Co-Sign Detail Recorded Client Recorded Date Recorded By Document 11/15/21 10:05 [id number] 11/15/21 10:24 Document 11/23/21 08:11 BM [id number] 11/23/21 08:17 [facility] Document 11/29/21 10:05 KR [id number] 11/29/21 10:10 KR 11/15/21 11/23/21 11/29/21 10:05 08:11 10:05 Wound Center Nurse 1 Lower Limb Edema Present Yes Yes Right Calf (cm) 43.0 43 45.1 Right Ankle (cm) 24.2 23.5 26.2 Left Calf (cm) 44.1 45 45.8 Left Ankle (cm) 21.6 21 23.1 - Nurse 3 - General Ulcer D/C NN Start: 11/15/21 10:05 Freq: Status: Active Protocol: Activity Type Activity Date Activity User E-Sign Co-Sign Detail Recorded Client Recorded Date Recorded By Document 11/15/21 11:15 [id number] 11/15/21 11:15 Document 11/18/21 11:25 KR [id number] 11/18/21 11:26 KR Document 11/23/21 08:11 [facility] [id number] 11/23/21 08:17 BMF 11/15/21 11/18/21 11/23/21 11:15 11:25 08:11 Wound Care Nurse 3 BLE -Multi-Layered Wrap Application Multi-Layer Comp - Bilat ($ ) -Other 3M PER RB RN Left -Lotion applied to leg before Yes compression wrap -Multi-Layered Wrap Application Multi-Layer Multi-Layer Comp - Bilat ($ Comp - Bilat ($ ) ) Treatment Response Procedure Tolerated Well Vital Signs Temperature (97.8 F-99.1 F) 97.8 F Temperature Source Temporal Temporal Pulse Rate (60-100) 73 Pulse Location Monitor Monitor Respiratory Rate (12-18) 16 Respiratory rate source Observation Oxygen Delivery Method Room Air Blood Pressure (90/60-120/80) 166/72 H Blood Pressure Mean 103 Source Monitor Monitor Position Sitting Sitting Blood Pressure Location Left Arm Left Arm Pain Scale: 0-10 Numeric Is Patient Pain Free? Yes Yes Yes WC - Visit Discharge Discharge Condition Stable Stable Stable Ambulatory Status Ambulatory Ambulatory,Cane Ambulatory,Cane Transportation Private Auto Private Auto Private Auto Medication Reconcilliation completed & Yes provided to patient/care provider Clinical Summary of Care Provided Yes Assessment/Plan Assessment/Plan (1) Leg edema: CODE(S): R60.0 - Localized edema (2) Leg swelling: CODE(S): M79.89 - Other specified soft tissue disorders (3) Postphlebitic syndrome with inflammation: CODE(S): I87.029 - Postthrombotic syndrome with inflammation of unspecified lower extremity (4) Lipodermatosclerosis of left lower extremity: CODE(S): I83.12 - Varicose veins of left lower extremity with inflammation (5) Edema: CODE(S): R60.9 - Edema, unspecified QUALIFIERS: Edema type: localized Qualified Code(s): R60.0 - Localized edema (6) Osteoporosis: CODE(S): M81.0 - Age-related osteoporosis without current pathological fracture (7) Inactivity: CODE(S): Z72.3 - Lack of physical exercise (8) Debility: CODE(S): R53.81 - Other malaise (9) Hyperpigmentation: CODE(S): L81.9 - Disorder of pigmentation, unspecified (10) Dependent edema: CODE(S): R60.9 - Edema, unspecified (11) Obesity (BMI 30.0-34.9): CODE(S): E66.9 - Obesity, unspecified (12) Non-ischemic cardiomyopathy: CODE(S): I42.8 - Other cardiomyopathies (13) Atrial fibrillation with RVR: CODE(S): I48.91 - Unspecified atrial fibrillation (14) History of non-ST elevation myocardial infarction (NSTEMI): CODE(S): I25.2 - Old myocardial infarction (15) Chronic systolic (congestive) heart failure: CODE(S): I50.22 - Chronic systolic (congestive) heart failure (16) HLD (hyperlipidemia): CODE(S): E78.5 - Hyperlipidemia, unspecified QUALIFIERS: Hyperlipidemia type: mixed hyperlipidemia Qualified Code(s): E78.2 - Mixed hyperlipidemia (17) Hypothyroidism: CODE(S): E03.9 - Hypothyroidism, unspecified QUALIFIERS: Hypothyroidism type: acquired Qualified Code(s): E03.9 - Hypothyroidism, unspecified (18) Chronic kidney disease (CKD): CODE(S): N18.9 - Chronic kidney disease, unspecified QUALIFIERS: Chronic kidney disease stage: stage 2 (mild) Qualified Code(s): N18.2 - Chronic kidney disease, stage 2 (mild) PLAN: The patient has voiced her disapproval and discontent regarding the conservative treatment measures which have been recommended to address the swelling, edema, and chronic skin changes in her lower extremities. She is vehemently opposed to the recommendations for long-term leg elevation and compression to the lower extremities. In fact, she has been overtly noncompliant with the compression in the lower extremities, having shown up for her last 2 clinic visits having removed the 3M, 2 layer compression wraps in her lower extremities. She removed her compression wraps 3 days ago, and the patient has been without compression since that time. The intent had been to use compression wraps for several weeks, then transition to the use of graduated compression stockings or Velcro compression garments for the long-term. In addition, consideration had also been given to the implementation of pneumatic mechanical compression devices. Also of note, the comments of her primary care physician, Dr. Roni Greer, have been noted from the patient's recent office visit on 11/16/2021. He states she has seen a peripheral vascular surgeon who told her that the only thing he can recommend is leg wrapping. Unfortunately this is not a solution she likes and wants me to find a different solution and I told her multiple times I really do not have a different solution. She says she wants a pill or a surgery that will permanently fix it and I told her several times that that just is not a possibility. She is understandably just frustrated with the aging process. Given the patient's discontentment with current recommendations, and with her noncompliance, we are to discharge the patient, with follow-up to occur henceforth at the lymphedema clinic, for which she has been given a referral. She has been advised that their recommendations may be very similar to those which have been previously provided. However, the lymphedema clinic associated with this hospital system is in a better position to provide more long-term oversight. Patient is to be discharged with double Tubigrip supplied today in our clinic. The mainstays of management have been again stressed, namely leg elevation, avoidance of prolonged idle sitting, lower extremity compression, weight management, and active lifestyle. Patient will follow-up henceforth on an as-needed basis. Total time: 28 minutes
== END 2021-11-29 15:28 | disposition home or self-care (01) ==
LOC: WC 10:00
PROVIDERS: PCP Family Medicine; Visit Provider Surgery
DX: I83.12 Varicose veins of left lower extremity with inflammation (principal); I42.8 Other cardiomyopathies; I50.22 Chronic systolic (congestive) heart failure; I48.91 Unspecified atrial fibrillation; M79.89 Other specified soft tissue disorders; R60.0 Localized edema; N18.2 Chronic kidney disease, stage 2 (mild); E78.2 Mixed hyperlipidemia; E03.9 Hypothyroidism, unspecified; Z72.3 Lack of physical exercise; I87.029 Postthrombotic syndrome with inflammation of unspecified lower extremity; E66.9 Obesity, unspecified; Z68.33 Body mass index [BMI] 33.0-33.9, adult; M81.0 Age-related osteoporosis without current pathological fracture; I25.2 Old myocardial infarction; Z79.82 Long term (current) use of aspirin; Z79.890 Hormone replacement therapy; Z79.899 Other long term (current) drug therapy; Z86.72 Personal history of thrombophlebitis; Z96.651 Presence of right artificial knee joint
CPT/HCPCS: 29581; 99213; G0463

== ENCOUNTER → 2022-04-26 | Outpatient (CLI) | payer MEDICARE, SELFPAY ==
[2022-04-26 14:59] LABS: Absolute Neutrophil Count 3.2 X10^3/uL (2.0-7.7); Basophil# 0.09 X10^3/uL; Basophil% 1.5 % (0-1); Eosinophil# 0.43 X10^3/uL; Eosinophils% 7.2 % (0-5); Hematocrit 37.9 % (37-47); Hemoglobin 11.8 g/dL (12.0-15.0); Lymphocyte % 30.2 % (19-41); Mean Corp Hgb Conc 31.1 g/dL (32-36); Mean Corpuscular Hgb 31.4 pg (27.0-32.0); Mean Corpuscular Volume 100.8 fL (81-99); Mean Platelet Vol. 10.8 fl (6.2-12.0); Monocyte# 0.45 X10^3/uL; Monocyte% 7.5 % (0-10); NRBC Flagged by Analyzer 0 % (0-5); Neutrophil # 3.18 X10^3/uL (2.7-7.7); Neutrophil % 53.3 % (47-70); Platelet Count 197 K/mm3 (150-450); RBC Distribution Width CV 13.5 % (11.6-14.6); RBC Distribution Width SD 49.8 fl (35.1-43.9); Red Blood Count 3.76 M/mm3 (4.2-5.4)
[2022-04-26 15:24] LABS: ALB/GLOB Ratio 0.9 RATIO (0.9-2.4); AST(SGOT) 16 U/L (15-37); Alanine Aminotransfer ALT/SGPT 13 U/L (13-56); Albumin, Serum 3.4 g/dL (3.2-5.0); Alkaline Phosphatase 62 U/L (45-117); Anion Gap 8 (5-15); BUN 34 mg/dL (7-18); Bilirubin, Direct 0.12 mg/dL (0.00-0.30); Calcium,Total 9.3 mg/dL (8.5-10.1); Chloride 109 mmol/L (98-107); Cholesterol 187 mg/dL (200); Creatinine, Serum 1.48 mg/dL (0.55-1.02); EST Glomerular Filtration Rate 36 mL/min (>60); Est Glom Filt Rate - Afr Amer 43 mL/min (>60); Globulin 3.7 g/dL (2.2-4.2); Glucose 92 mg/dL (74-106); High Density Lipoprotein 45 mg/dL; Potassium 4.1 mmol/L (3.5-5.1); Protein, Total 7.1 g/dL (6.4-8.2); Sodium Level 142 mmol/L (136-145); Thyroid Stim Hormone (TSH) 2.33 uIU/mL (0.358-3.74); Triglycerides 208 mg/dL; Very Low Density Lipoprotein 42 mg/dL (5-40)
== END | disposition home or self-care (01) ==
LOC: BIMLAB 11:56
PROVIDERS: PCP Family Medicine; Referring Provider Family Medicine; Visit Provider Family Medicine
DX: E03.9 Hypothyroidism, unspecified (principal)
CPT/HCPCS: 36415; 80053; 80061; 82248; 84443; 85025

== ENCOUNTER 2022-06-21 10:00 | Outpatient (RCR) | payer MEDICARE, SELFPAY ==
--- NOTE | 2021-12-12 09:06 | HP.OTEVAL ---
Patient's Visit Information NOEMY FITZGERALD is a 81 year old F, referred to Occupational Therapy by Dr. Judd Espino MD, with a diagnosis of lymphedema BUE. Date of Evaluation: 12/09/21 Occupational Therapist: Maria A Thompson, OTR/L, CHT - Subjective This 81 year old female was seen for OT eval with dx of LE lymphedema - pt states she started swelling in Nov. left leg larger than other pt states she has worked with Dr. Espino but does not want to wrap her legs- He was rec'd this for her to help mt. her swelling. pt is here to figure out other alternatives to mtg. her swelling. pt use pool in [place] 3x week for pool access to silver sneakers. - Lymphedema (Circumferential Measure) Mid-foot: right 21cm left 21cm Ankle: right 26cm left 27cm Lower calf: right 33cm left 27cm Largest calf: right 43cm left 45cm Below knee: right 41cm left 43cm - Lower Limb Functional Index Lower Extremity Functional Score: 41 - Goals Demonstrate a 20% reduction in edema by d/c: Yes Demonstrate adequate knowledge of self-massage by 2nd week: Yes Demonstrate adequate knowledge skin care/prec by 2nd week: Yes Select approp compression garment w/donning/care/wear by d/c: Yes Voice need to replace compression garment every 4-6mo by dc: Yes - Rehabilitation General Assessment: pt demo with LE edema and decrease knowledge of mtg of lymphedema- pt would benefit from skilled OT services 2-3 visits to ensure understanding of dx, treatment and proper use of compression garment- Pt agree to POC. Rehabilitation Potential: Questionable - Anticipated Interventions Education re Diagnosis, Manual Lymph Drainage, Education re Life-long lymphedema Management, Education re Skin Care and Precautions, Education re Self Massage Techniques, Education re Correct Donning Tech,Care&Wearing Sched Comp Garments, Home Program - Visit Plan TEXT: Thank you for the opportunity to evaluate your patient. For Medicare and Medicare HMO plans, please review the plan of care and approve it. It will need to be FAXED BACK to us at [phone] for Medicare purposes. Please let me know if there are questions or concerns regarding this plan of care. Physician Signature: Date:
--- NOTE | 2022-02-02 10:53 | HP.PTEVAL_ITS ---
Patient's Visit Information NOEMY FITZGERALD is a 81 year old F referred to Physical Therapy by Dr. Judd sEpino MD with a diagnosis of Abnormal Gait. Date of Evaluation: 02/02/22 Physical Therapist: Mirna Carrillo DPT - Visit Plan Frequency: 2x /Week Duration: 4 Weeks Plan: Aquatic Therapy for 4 weeks with focus on LE and core strength/stabilization- functional mobility- then transition to land based exercise. - Subjective Patient reports that she had a right knee replaced in 2016 and she has never been very comfortable with steps. She can go up but not down. She took swimming at the [facility] [employer] in [place] for like 30 years then COVID closed it then she decided to walk- she stopped exercises due to the weather and has now been out of practice for a year. She now has a vein situation- Lymphedema- saw her PCP who was not to worried about it- so she went to see Dr. Espino- he wanted her to be wrapped daily- she was dismissed from him- saw OT Ursula-she gave her exercises and had her get compression stockings- rubber gloves and can't find them anywhere- she is willing to do this but now when she is going to a wedding. But now she feels that she has developed a balance issue. She went to the dentist and she tripped and landed on her right knee and shoulder. Dr. Youngblood did the surgery- saw his partner Dr. Carrizales- he said everything looks good. She has no pain just not as balanced as she wants to be. She is also not as active as she wants to be. Has a straight cane but does not use consistently. She uses for going up/down stairs. She does not have stairs at home. - Objective Posture: FH, RS- can correct but does not maintain. Gait: mild shuffling pattern but more of a smaller step pattern- increased fear of falling- no AD. HR/TR: able. SLS: weight shift but no SLS. Balance: eyes open 1 min no LOB, eyes closed 30 sec mild increase in sway, tandem stance: 5 sec without LOB bilateral, see FGA. Stairs: asc/desc 8 recip with 2 HR. ROM: WFL in all planes. Strength: Core: fair minus, Hip: 4/5, Knee: 4+/5, Ankle: 5/5. Flex: HS: moderate Gastroc: moderate - Balance/Special Test Scores Functional Gait Assessment Score: 20 % Disability: 33.3400 Lower Extremity Functional Score: 44 TUG Test Time Seconds: 13 - Goals Goal 1:: Patient will be I with HEP and progression Goal Time Frame: 4-6 Weeks Goal 2:: Patient will asc/desc 8 stairs with single hand rail Goal Time Frame: 4-6 Weeks Goal 3:: Patient will perform the TUG in 10 seconds Goal Time Frame: 4-6 Weeks Goal 4:: Patient will report 80% improvement Goal Time Frame: 4-6 Weeks - Rehabilitation Potential Physical Therapy Diagnosis: Patient presents with hypomobility- she has decreased LE and core strength/stabilization, flex and muscular endurance leading to decreased balance, confidence with movement and ADL's. Rehabilitation Potential: Good - Anticipated Interventions Patient/Client Instruction: Educate patient on: Benefits of Fitness Program Therapeutic Exercise to Include: Strength training, Endurance training, Balance training, Coordination, Agility training, Body mechanics, Postural training, Flexibilty training, Gait and locomotor training, Neuromotor development, In an aquatic setting, Dynamic Lumbar Stabilization, Scapular Strength/Stabilization Thank you for the opportunity to evaluate your patient. For Medicare and Medicare HMO plans, please review the plan of care and approve it. It will need to be FAXED BACK to us at [phone] for Medicare purposes. For Medicare only, by signing this I certify the plan of care. Please let me know if there are questions or concerns regarding this plan of care. Physician Signature: Date:
--- NOTE | 2022-03-14 09:45 | HP.PTREVAL_ITS ---
Dr. Judd Espino MD, It has been my pleasure to treat NOEMY FITZGERALD over the last 9 visits for Abnormal Gait. Please see the progress note below for an update on the physical therapy plan of care! Subjective: Patient reports that she is doing fine- she is much improved from the first time she came to PT. She is not dragging her feet anymore- she still has issues with going down stairs. She wants to take a cruise at the end of July- and she needs to be able to do more walking so she can enjoy the excursions. She is not as fearful as she was of walking but she feels that she is ready to transition to land. Objective/Function: Posture: FH, RS- can correct but does not maintain. Gait: smaller step pattern but not shuffling- increased fear of falling- no AD. HR/TR: able. SLS: weight shift but no SLS. Balance: eyes open 1 min no LOB, eyes closed 30 sec mild increase in sway, tandem stance: 5 sec without LOB bilat eral. Stairs: asc/desc 8 recip with 2 HR- prefers to desc step to. ROM: WFL in all planes. Strength: Core: fair minus, Hip: 4/5, Knee: 4+/5, Ankle: 5/5. Flex: HS: moderate Gastroc: moderate Plan Plan: Progression to land based therapy- 2x a week for 4 weeks- functional mobility. *f/u with supervising PT next appt. Would recommend continued AT at this time d/t progress made, but room for greater improvements. For example, is not ready to complete kitchen sink tasks as HEP d/t compensations through stance LE and upper body resulting in LOB. Aquatic Therapy for 4 weeks with focus on LE and core strength/stabilization- functional mobility- then transition to land based exercise. Balance/Gait/Functional tests - Balance/Special Test Scores Functional Gait Assessment Score: 20 % Disability: 33.3400 Lower Extremity Functional Score: 44 TUG Test Time Seconds: 15 Tug Test: <20 sec.=mostly independent Goals Goal 1:: Patient will be I with HEP and progression Goal Time Frame: 4-6 Weeks Goal Progress: Progressing Goal 2:: Patient will asc/desc 8 stairs with single hand rail Goal Time Frame: 4-6 Weeks Goal Progress: Progressing Goal 3:: Patient will perform the TUG in 10 seconds Goal Time Frame: 4-6 Weeks Goal Progress: Progressing Goal 4:: Patient will report 80% improvement Goal Time Frame: 4-6 Weeks Goal Progress: Progressing Anticipated Interventions Patient/Client Instruction: Educate patient on: Benefits of Fitness Program Therapeutic Exercise to Include: Strength training, Endurance training, Balance training, Coordination, Agility training, Body mechanics, Postural training, Flexibilty training, Gait and locomotor training, Neuromotor development, In an aquatic setting, Dynamic Lumbar Stabilization, Scapular Strength/Stabilization Please do not hesitate to contact me at [phone] by phone or if you have questions or concerns regarding this new plan of care! Sincerely, PAM PachecoT
== END 2022-06-21 16:11 | disposition home or self-care (01) ==
LOC: PT 10:00
PROVIDERS: PCP Family Medicine; Referring Provider Surgery; Visit Provider Surgery
DX: I89.0 Lymphedema, not elsewhere classified (principal)
CPT/HCPCS: 97110; 97113; 97162; 97164; 97166; 97530

== ENCOUNTER 2022-08-24 09:30 | Outpatient (RCR) | payer MEDICARE, SELFPAY ==
--- NOTE | 2022-09-29 10:41 | HP.PTDCSUM ---
It has been my pleasure to treat NOEMY FITZGERALD referred by Dr. Judd Espino MD, with the diagnosis of for a total of 28 visit(s). Discharge Date: Please see the following information for a summary of their discharge status. Subjective: Patient reports that she has had many cancels due to weather, FLU and her teeth issues Goal 1:: Patient will be I with HEP and progression Goal 2:: Patient will asc/desc 8 stairs with single hand rail Goal 3:: Patient will perform TUG test in under 10 sec Goal 4:: Patient will report 80% improvement Plan: 09/29/22: Will d/c at this time and re-start therapy when patient is feeling back to normal, weather issues don't impede her ability to get to therapy. Patient to continue with silver sneakers and start therapy again in November If there are questions or concerns regarding this patient's physical therapy, please feel free to call me at [phone]. Thank you for the referral of this patient. Sincerely, Mirna Carrillo, PAMT Balance/Gait/Functional tests - Balance/Special Test Scores 30 Second Chair Rise Test Seconds: 10
== END 2022-08-24 19:00 | disposition home or self-care (01) ==
LOC: PT 09:30
PROVIDERS: PCP Family Medicine; Referring Provider Surgery; Visit Provider Surgery
DX: R26.81 Unsteadiness on feet (principal); R26.9 Unspecified abnormalities of gait and mobility; Z96.651 Presence of right artificial knee joint; M17.12 Unilateral primary osteoarthritis, left knee
CPT/HCPCS: 97110; 97112; 97530

== ENCOUNTER 2023-01-25 10:00 | Outpatient (RCR) | payer MEDICARE, SELFPAY ==
--- NOTE | 2022-11-22 09:54 | HP.PTEVAL_ITS ---
Patient's Visit Information NOEMY FITZGERALD is a 82 year old F referred to Physical Therapy by [facility] with a diagnosis of Left Knee Pain. Date of Evaluation: 11/22/22 Physical Therapist: Mirna Carrillo DPT - Visit Plan Frequency: 2x /Week Duration: 4 Weeks Plan: Proprioception, LE and core Strength and Functional Mobility (Stairs, Curbs, Sit to Stand). HEP Given IE: Kitchen Sink Ex - Subjective Patient reports that she is back and ready to get started after the weather has cleared. Her left knee has started to bother her again due to arthritis but her right knee is doing great. She has had her right knee replaced but not her le ft. Worst: 5/10 Agg: activity Eases: nothing Best: 0/10. No pain currently. She has been sick for the last few weeks with the belly flu. She lives in a single story home- with a single step to enter from the front and 2 steps in from the garage with hand rails everywhere. Her house is full of handrails and grab bars. Fully I with all of her ADL's- but has someone that does her cleaning. She does her own grocery shopping. She is concerned because she was at the [employer] and was sitting in a chair and was unable to get out of the chair. Goals: Stairs- up and down with a handrail recp, go up/down a small step with a cane (to simulate a curb), get up/down out of a chair easily. February 12- she is having major dental surgery. - Objective Posture: FH, RS- can correct but does not maintain. Gait: mild shuffling pattern but more of a smaller step pattern- increased fear of falling- straight cane. HR/TR: able. SLS: weight shift but no SLS. Balance: see FGA. Stairs: asc/desc 8 recip with 2 HR. ROM: WFL in all planes. Strength: Core: fair minus, Hip: 4/5, Knee: 4+/5, Ankle: 5/5. Flex: HS: moderate Gastroc: moderate. Transfers: requires UE A to get up from chair - Balance/Special Test Scores Functional Gait Assessment Score: 12 % Disability: 60.0000 Lower Extremity Functional Score: 42 - Goals Goal 1:: Patient will be I with HEP and progression Goal Time Frame: 4-6 Weeks Goal 2:: Patient will sit to stand without UE A Goal Time Frame: 4-6 Weeks Goal 3:: Patient will asc/desc 6 step with LRD to simulate a curb Goal Time Frame: 6-8 Weeks Goal 4:: Patient will report 80% improvement Goal Time Frame: 4-6 Weeks - Rehabilitation Potential Physical Therapy Diagnosis: Patient presents with hypomobility- she has decreased LE and core strength/stabilization, proprioception, flex and muscular endurance leading to decreased ability to perform ADL's. Rehabilitation Potential: Good - Anticipated Interventions Patient/Client Instruction: Educate patient on: Benefits of Fitness Program Therapeutic Exercise to Include: Strength training, Endurance training, Balance training, Coordination, Agility training, Body mechanics, Postural training, Flexibilty training, Gait and locomotor training, Neuromotor development, Dynamic Lumbar Stabilization, Scapular Strength/Stabilization For the Purpose of:: To improve muscle performance and motor function Thank you for the opportunity to evaluate your patient. For Medicare and Medicare HMO plans, please review the plan of care and approve it. It will need to be FAXED BACK to us at [phone] for Medicare purposes. For Medicare only, by signing this I certify the plan of care. Please let me know if there are questions or concerns regarding this plan of care. Physician Signature: Date:
--- NOTE | 2022-12-21 11:05 | HP.PTREVAL ---
[facility], It has been my pleasure to treat NOEMY FITZGERALD over the last 5 visits for Left Knee Pain. Please see the progress note below for an update on the physical therapy plan of care! Subjective: Loves walking but has not lately. Will need dental surgery soon. Pt wants to continue as surgery will be February 12. HEP: doing 1 set of one as printed on her sheet. Went up steps without stopping last week which is the first in a while but it wore her out the next day. could not be consistent last month but is ready now. Objective/Function: Walks with cane with short steps and fearful but mod I. Will not step over 4 or 6 box today due to fear. Up steps with two rails i, descnd with two rails mod I. Consistency with HEP and therapy has held her back but is appropriate for another trial of POC with fair prognosis with compliance. Fear and motivation may hold her back. New goal and old stilla ppropriate. Plan Plan: 2x/week for 4 weeks. Please make sure patient is doing 2-3x10 of HEP daily(sink exercises and she has pics today). work int herapy on LE strength and gait confiedence with steps and box or curb daily. Progress HEP as tolerated. Balance/Gait/Functional tests - Balance/Special Test Scores Functional Gait Assessment Score: 20 % Disability: 33.3400 Lower Extremity Functional Score: 37 Tug Test: 20-30sec.=variable mobility Goals Goal 1:: Patient will be I with HEP and progression Goal Time Frame: 4-6 Weeks Goal Progress: 1 rep Goal 2:: Patient will sit to stand without UE A Goal Time Frame: 4-6 Weeks Goal Progress: needs 2 Goal 3:: Patient will asc/desc 6 step with LRD to simulate a curb Goal Time Frame: 6-8 Weeks Goal Progress: afraid Goal 4:: Patient will report 80% improvement Goal Time Frame: 4-6 Weeks Goal Progress: 10% Goal 5:: FGA Goal Time Frame: 4-6 Weeks Goal Progress: NEW GOAL Anticipated Interventions Patient/Client Instruction: Educate patient on: Benefits of Fitness Program Therapeutic Exercise to Include: Strength training, Endurance training, Balance training, Coordination, Agility training, Body mechanics, Postural training, Flexibilty training, Gait and locomotor training, Neuromotor development, Dynamic Lumbar Stabilization, Scapular Strength/Stabilization For the Purpose of:: To improve muscle performance and motor function Please do not hesitate to contact me at [phone] by phone or if you have questions or concerns regarding this new plan of care! Sincerely, Leon West, DPT, OCS, CSCS
--- NOTE | 2023-01-25 10:36 | HP.PTDCSUM_ITS ---
It has been my pleasure to treat NOEMY FITZGERALD referred by Dr. Roni Greer, DO, with the diagnosis of Left Knee Pain for a total of 12 visit(s). Discharge Date: 01/25/23 Please see the following information for a summary of their discharge status. Subjective: I do not use cane at home but do out and about.Did stairs and has conquered those. L knee has OA now and gets 4/10 if she does a lot of stairs. R knee not hurting. Activities at home are pretty normal outside of loading trunk of car. sleep is OK. Doing HEP: LE strength and doing 1x10 and spreading them throughout the day. Just saw Dr. Greer and is doing well. Does not want further therapy and wants to try at home. Will have surgery in two weeks on teeth. B LE pain Pain Intensity (Out of 10): 0 % Improvement: 85 Objective/Function: Pt is confused on date of appointment and what she has left. Overall doign well though. sit to stand with cues without UE today. steps preferring L with two rails easily up and down. Curb still requires cane and EX ASSISTANT/PROGRAM DIRECTOR mostly due to confidence and panic when not holding on. Overall much better adn feels ready to continue on her won at home especially considering oral surgery pending. Goal 1:: Patient will be I with HEP and progression Goal Progress: 1x10 Goal 2:: Patient will sit to stand without UE A Goal Progress: Goal Met Goal 3:: Patient will asc/desc 6 step with LRD to simulate a curb Goal Progress: 4 inch one cane and EX ASSISTANT/PROGRAM DIRECTOR Goal 4:: Patient will report 80% improvement Goal Progress: 85% Goal 5:: FGA Goal Progress: Progressing, Plan: d/c to HEP Discharge Comments: Will continue sink exercises at home daily toward 2-3x10. Continue to use cane to get around. If there are questions or concerns regarding this patient's physical therapy, pl daphne feel free to call me at [phone]. Thank you for the referral of this patient. Sincerely, Leon West, DPT, OCS, CSCS Balance/Gait/Functional tests - Balance/Special Test Scores Functional Gait Assessment Score: 22 % Disability: 26.6700 Lower Extremity Functional Score: 43 Tug Test: 20-30sec.=variable mobility
== END 2023-01-25 10:41 | disposition home or self-care (01) ==
LOC: PT 10:00
PROVIDERS: PCP Family Medicine; Referring Provider Family Medicine; Visit Provider Family Medicine
DX: R26.9 Unspecified abnormalities of gait and mobility (principal); Z96.651 Presence of right artificial knee joint; M17.12 Unilateral primary osteoarthritis, left knee
CPT/HCPCS: 97110; 97162; 97164

== ENCOUNTER 2023-02-04 10:32 | Inpatient (IN) | payer MEDICARE, SELFPAY ==
[2023-02-04] VITALS (8 sets, daily range): BP systolic 130–185; BP diastolic 76–90; PULSE 65–90; RESP 16–18; TEMP 36.4–36.6; O2SAT 96–100; BMI 28.8; BMI 30.3
--- NOTE | 2023-02-04 11:12 | RAD_ITS ---
INDICATION: Status post fall. EXAMINATION/TECHNIQUE: X-RAY - XR Pelvis 1 or 2 Views COMPARISON: FINDINGS: PELVIC BONES: No displaced fracture, destructive or sclerotic lesions. Note that overlapping bowel shadows may however obscure fine detail. Sacroiliac joints are unremarkable. No widening of the pubic symphysis. HIPS: The articular structures are unremarkable. No displaced fracture seen in this frontal view. SOFT TISSUES: No soft tissue swelling or gas. RAD/Pelvis 1 or 2 Views IMPRESSION: No evidence of displaced pelvic or hip fracture. Electronically Signed: Kana Santoyo MD at 12:28 EDT ,
--- NOTE | 2023-02-04 11:12 | CT_ITS ---
INDICATION: Status post fall, confusion. EXAMINATION: CT BRAIN - CT Head or Brain W/O Contrast Injection TECHNIQUE: Multiple axial images were obtained of the head without intravenous contrast. A radiation dose optimization technique was used for this scan. IV Contrast dosage and agent: None. RADIATION DOSAGE (If Supplied By Facility): CTDIvol = ( 44.99 ) mGy, DLP = ( 812.98 ) mGycm COMPARISON: MRI of the brain of 04/12/2016. FINDINGS: BRAIN PARENCHYMA: No intra- or extra-axial hemorrhage. No evidence of acute infarct. No intracranial mass or mass effect. There is preservation of the lockett/white matter interface. Posterior fossa structures are unremarkable. Mild periventricular deep white matter changes likely due to chronic microvascular disease. Atherosclerotic calcifications of the cavernous internal carotid arteries. CSF SPACES: Mild atrophy. No hydrocephalus. Basal cisterns are patent. CALVARIUM, SKULL BASE, PARANASAL SINUSES AND MASTOID AIR CELLS: Clear. No discrete lytic or blastic abnormalities. ORBITS: Both globes, extraocular muscles, optic nerves and retrobulbar fat appear unremarkable. ASPECTS Score for Acute Strokes: 10 CT/Brain/Head without Contrast IMPRESSION: No acute intracranial process. Chronic involutional changes of the brain. Electronically Signed: Kana Santoyo MD at 11:52 EDT ,
--- NOTE | 2023-02-04 11:12 | CT_ITS ---
INDICATION: fall EXAMINATION: CT CERVICAL SPINE - CT Spine Cervical W/O Contrast Injection TECHNIQUE: Helically acquired images were obtained of the cervical spine. 2D reformatted images were reviewed. A radiation dose optimization technique was used for this scan. IV Contrast dosage and agent: None. RADIATION DOSAGE (If Supplied By Facility): CTDIvol = ( 21.07 ) mGy, DLP = ( 401.09 ) mGycm COMPARISON: No prior examinations are available for comparison. FINDINGS: VERTEBRAE: No fracture or traumatic subluxation. No discrete lytic or blastic abnormality. Normal alignment. Normal craniocervical junction and cervicothoracic junction. DISCS and SPINAL CANAL: Disc heights are preserved. No critical stenosis. Degenerative changes in the apophyseal joints at multiple levels worse on the right side at the level of C5-C6. NECK SOFT TISSUES: No prevertebral soft tissue swelling. Atherosclerotic calcifications of the carotid arteries bilaterally. LUNG APICES: Clear. CT/Spine Cervical without Contras IMPRESSION: 1. No evidence of acute cervical spinal fracture or spondylolisthesis. 2. Mild degenerative changes. Electronically Signed: Kana Santoyo MD at 11:55 EDT ,
--- NOTE | 2023-02-04 11:12 | RAD_ITS ---
INDICATION: fall EXAMINATION/TECHNIQUE: X-RAY - XR Chest 1 View COMPARISON: Prior examination of 12/03/2014. FINDINGS: LINES/DEVICES: None. LUNGS: No consolidation, edema or effusion. No pneumothorax. MEDIASTINUM AND CARDIOVASCULAR STRUCTURES: Borderline cardiac silhouette. BONES AND SOFT TISSUES: Degenerative changes of the left shoulder. RAD/Chest 1 View (Portable) IMPRESSION: No radiographic evidence of acute cardiopulmonary disease. Electronically Signed: Kana Santoyo MD at 12:21 EDT ,
--- NOTE | 2023-02-04 11:13 | EKG12_ITS ---
Test Reason : FALL Blood Pressure : / mmHG Vent. Rate : 090 BPM Atrial Rate : 000 BPM P-R Int : 000 ms QRS Dur : 098 ms QT Int : 404 ms P-R-T Axes : 000 -63 019 degrees QTc Int : 494 ms Atrial fibrillation with premature ventricular or aberrantly conducted complexes Left axis deviation Inferior infarct , age undetermined Abnormal ECG Confirmed by MARCELLUS ISSA, DANNY ([id number]), script editor POLO BUI ([id number]) on 02/07/2023 11:41:16 AM Referred By: Confirmed By:MIRIAM GERMAIN MD
--- NOTE | 2023-02-04 11:14 | ED.VIS.FALL ---
HPI HPI - Fall History of Present Illness Chief Complaint: Fall Detail of Chief Complaint: Fall Informant: patient Narrative Narrative: Patient presents to the emergency department with a fall. Patient was found on her bedroom floor by her son this morning. Son believes she may have been on the floor for 2 days as the newspaper from was in the house but not the Sunday newspaper. Patient states that she was having a constitution party and was wrapping presents when she fell into the wall and injured her head and her right shoulder. Patient denies any chest pain or shortness of breath. She does complain of a headache. She is not on blood thinners from what she tells me. Patient does have history of A-fib. [facility] Medical History Abnormal stress test Anemia Arthritis Atrial fibrillation with RVR (12/03/14) Bray angioma Chronic kidney disease (CKD) Chronic systolic (congestive) heart failure Debility Dependent edema Eczema Edema Hemorrhoids History of DVT (deep vein thrombosis) History of non-ST elevation myocardial infarction (NSTEMI) (12/03/14) HLD (hyperlipidemia) Hyperpigmentation Hypomagnesemia Hypothyroidism Inactivity Leg edema Leg swelling Non-ischemic cardiomyopathy Obesity Osteoporosis Osteoporosis Postoperative atrial fibrillation (12/03/14) Postphlebitic syndrome with inflammation Rosacea Syncope Weight loss, abnormal Home Medications docusate sodium 100 mg capsule 100 mg PO DAILY #90 caps 10/25/17 [Rx Last Taken Unknown] levothyroxine 25 mcg tablet 25 mcg PO DAILY #90 tabs 01/04/22 [Rx Last Taken Unknown] metoprolol tartrate 25 mg tablet 25 mg PO BID #180 tabs 03/08/22 [Rx Last Taken Unknown] celecoxib 200 mg capsule 200 mg PO QDAY #90 caps 04/26/22 [Rx Last Taken Unknown] pravastatin 20 mg tablet 20 mg PO QHS #90 tabs 04/26/22 [Rx Last Taken Unknown] allopurinol 100 mg tablet 100 mg PO DAILY #90 tabs 06/26/22 [Rx Last Taken Unknown] oxybutynin chloride 10 mg tablet,extended release 24 hr 10 mg PO DAILY #30 tabs 07/04/22 [Rx Last Taken Unknown] hydrochlorothiazide 12.5 mg tablet 25 mg PO QAM 09/20/22 [History Last Taken Unknown] calcium carbonate 600 mg calcium (1,500 mg) tablet (Calcium) 600 mg PO DAILY #90 tabs 09/27/22 [Rx Last Taken Unknown] phentermine 37.5 mg tablet (Adipex-P) 37.5 mg PO DAILY #30 tabs 01/16/23 [Rx Last Taken Unknown] potassium chloride 10 mEq tablet,extended release 10 meq PO BID #180 tabs 01/16/23 [Rx Last Taken Unknown] Allergy/AdvReac Type Severity Reaction Status Date / Time fluoxetine HCl [From Prozac] Allergy Unknown Verified 02/04/23 10:41 Family History Mother Hypertension Heart disease Colon cancer Surgical History History of knee replacement History of vein stripping Social History Smoking Status: Never smoker how long ago did patient quit smokin alcohol intake: current alcohol intake frequency: holidays/special occasions only substance use type: does not use what type of physical activity do you participate in: aerobics and weight training frequency: 3-4 times per week ROS ROS ED Review of Systems ROS Unobtainable: other Constitutional Constitutional ED: Reports lethargy; Denies chills, fever(s), sweats or weight loss Eyes Eyes: Denies blurry vision, change in vision or diplopia ENT ENT ED: Denies rhinorrhea or sore throat Cardiovascular Cardiovascular: Denies chest pain, orthopnea or racing heartbeat Respiratory/Chest Respiratory/Chest: Denies cough, dyspnea, dyspnea on exertion, orthopnea or sputum Gastrointestinal Gastrointestinal: Denies abdominal pain, diarrhea, nausea or vomiting Genitourinary Genitourinary ED: Denies dysuria, hematuria or urinary frequency Musculoskeletal Musculoskeletal: Denies arthralgias, back pain, myalgias or neck pain Integumentary Denies abscess, Abrasions or rash Neurologic Neurologic: Reports headache(s); Denies weakness Psychiatric Psychiatric: Denies anxiety, depression or suicidal thoughts Endocrine Endocrinology: Denies polydipsia, polyphagia or polyuria Hematologic/Lymphatic Hematologic/Lymphatic: Denies easy bleeding, easy bruising or lymphadenopathy Allergic/Immunologic Allergic/Immunologic ED: Denies mouth swelling, tongue swelling or urticaria EXAM Physical Exam Const Vital Signs: 02/04/23 10:35 Temperature 97.7 F L Temperature Source Oral Pulse Rate 65 Respiratory Rate 16 Blood Pressure 130/83 H Blood Pressure Mean 98 Pulse Ox 96 Oxygen Delivery Method Room Air Positive well nourished and well developed General Appearance ED: well developed and NAD HEENT Reports TM's clear and moist mucous membranes HEENT Narrative: No external evidence of trauma to her head. Mucous membranes are dry. normocephalic and atraumatic; Negative for trauma or tenderness Tympanic Membrane ED: Yes TM's clear Eyes PERRL and EOMs intact bilaterally General Eye ED: Negative for pale conjunctiva or scleral icterus Neck no lymphadenopathy, supple and no JVD General: Negative for tenderness Chest Wall inspection of chest normal and palpation of chest normal Chest: Negative for tenderness Resp normal respiratory effort and clear to auscultation bilaterally Effort and Inspection: Negative for respiratory distress or pain with movement Auscultation: Negative for rhonchi, wheezes or diminished lung sounds Cardio regular rate, regular rhythm, S1 normal heart sound, S2 normal heart sound and no murmurs Peripheral Pulses: pulses 2+ throughout GI normal to inspection, nondistended, normoactive bowel sounds, soft to palpation, non-tender, non-distended and no masses Back/Spine no CVA tenderness and no thoracic nor lumbar tenderness Extremity normal to inspection General Extremety ED: Negative for edema General Extremity: Negative for edema Neuro oriented x3, CN's II-XII intact bilaterally, no sensory deficits noted and gait normal Sensorium / Orientation: awake, alert, oriented to person, oriented to place and oriented to time Motor Exam: strength 5/5 throughout and strength abnormal Psych mental status grossly normal Skin no rashes or lesions noted and no wounds MDM MDM MDM Narrative Medical decision making narrative: Patient presents after being found on the floor of her home. She complains of a headache and right shoulder pain. Patient had a CT scan of her brain and a CT of her C-spine. She will have x-rays of her right shoulder and a chest x-ray. We will obtain x-rays of her pelvis. Basic lab work-up including CPK will be obtained. EKG and troponin will be ordered. Urinalysis will be ordered. Patient will be given normal saline IV. EKG obtained arrival showed a atrial fibrillation with a ventricular rate of [address] changes[address] scan of the brain without contrast showed chronic emotional changes without evidence of trauma. CT of the C-spine showed no fractures but did show degenerative changes. CBC with differential unremarkable. Chemistries unremarkable but BUN was elevated 31 and creatinine was elevated 1.99. Patient's troponin was elevated at 515. Total CPK was 971. X-rays of the right shoulder obtained interpreted by myself as no acute fractures. Patient also had x-rays of the chest as well as the pelvis which on my interpretation are unremarkable. Patient had an liter of the same fluid bolus given. Patient was written for 162 mg of aspirin p.o. Patient not currently having chest pain. Case will be discussed with hospitalist to evaluate patient for admission. Lab Data Attestation: I reviewed the patient's lab results. Labs: Laboratory Results - last 24 hr 02/04/23 11:25 WBC 7.4 RBC 4.95 Hgb 14.9 Hct 45.9 MCV 92.7 MCH 30.1 MCHC 32.5 RDW Std Deviation 46.3 H RDW Coeff of Bebo 13.4 Plt Count 211 MPV 10.2 Immature Gran % (Auto) 0.500 Neut % (Auto) 73.2 H Lymph % (Auto) 19.2 [place] % (Auto) 4.8 Eos % (Auto) 1.1 Baso % (Auto) 1.2 H Absolute Neuts (auto) 5.4 Absolute Lymphs (auto) 1.43 Nucleated RBC % 0 Sodium 138 Potassium 3.7 Chloride 107 Carbon Dioxide 21.0 Anion Gap 10 BUN 31 H Creatinine 1.99 H Est GFR (MDRD) Af Amer 31 L Est GFR (MDRD) Non-Af 25 L BUN/Creatinine Ratio 15.6 Glucose 110 H Calcium 9.5 Total Bilirubin 1.40 H AST 83 H ALT 37 Alkaline Phosphatase 89 Total Creatine Kinase 971 H Troponin I High Sens 515 H* Total Protein 7.5 Albumin 3.4 Globulin 4.1 Albumin/Globulin Ratio 0.8 L Radiography Diagnostic Testing: Clinical Impression(s) from Imaging Studies Brain CT 02/04/23 11:12 IMPRESSION: No acute intracranial process. Chronic involutional changes of the brain. Electronically Signed: Kana Santoyo MD at 11:52 EDT , Cervical Spine CT 02/04/23 11:12 IMPRESSION: 1. No evidence of acute cervical spinal fracture or spondylolisthesis. 2. Mild degenerative changes. Electronically Signed: Kana Santoyo MD at 11:55 EDT , 2 view x-rays of right shoulder obtained interpreted by myself no acute fractures or dislocations. Official report from radiology pending. 1 view chest x-ray obtained interpreted by myself as no evidence of infiltrate or acute disease process. Official report from radiology pending. 1 view x-ray of pelvis obtained interpreted by myself as no acute fractures. Official report from radiology pending. EKG Initial EKG: Attestation: I personally reviewed and interpreted this EKG as follows: Comments: Atrial fibrillation with a ventricular rate of [address] changes. Discharge Plan Triage Chief Complaint: Fall Other Complaint: General Illness ED Provider: Netta Boyce Dx/Rx/DC Orders Clinical Impression: Acute kidney injury, Atrial fibrillation, Elevated troponin, Weakness, Fall, Dehydration Prescriptions: No Action docusate sodium 100 mg capsule 100 mg PO DAILY Qty: 90 2RF Patient Comments: CONSITPATION metoprolol tartrate 25 mg tablet 25 mg PO BID Qty: 180 4RF levothyroxine 25 mcg tablet 25 mcg PO DAILY Qty: 90 3RF pravastatin 20 mg tablet 20 mg PO QHS Qty: 90 3RF celecoxib 200 mg capsule 200 mg PO QDAY Qty: 90 2RF allopurinol 100 mg tablet 100 mg PO DAILY Qty: 90 3RF hydrochlorothiazide 12.5 mg tablet 25 mg PO QAM calcium carbonate [Calcium 600] 600 mg calcium (1,500 mg) tablet 600 mg PO DAILY Qty: 90 2RF potassium chloride 10 mEq tablet extended release 10 meq PO BID Qty: 180 1RF phentermine [Adipex-P] 37.5 mg tablet 37.5 mg PO DAILY Qty: 30 0RF Rx Instructions: must administer 30 minutes before or 1-2 hours after breakfast oxybutynin chloride 10 mg tablet extended release 24hr 10 mg PO DAILY Qty: 30 3RF Primary Care Provider: Roni Greer Referrals: Roni Greer, [Primary Care Provider] - Disposition Disposition: Acute Care [facility]
--- NOTE | 2023-02-04 11:17 | RAD_ITS ---
INDICATION: Status post fall. EXAMINATION/TECHNIQUE: X-RAY - RIGHT XR Shoulder Min 2 Views 4 VIEWS COMPARISON: No prior examinations are available for comparison. FINDINGS: SOFT TISSUES: No soft tissue swelling or gas. No radiopaque foreign body. BONES/JOINTS: No acute fracture or subluxation.. Normal alignment. Cephalad migration of the humeral head which may impinge on the supraspinatus tendon. Possible minimal calcific tendinitis. No sclerotic or destructive changes observed. RAD/Shoulder min 2 Views IMPRESSION: Degenerative changes. No evidence of acute fracture or dislocation. Electronically Signed: Kana Santoyo MD at 12:29 EDT ,
[2023-02-04 11:35] LABS: Absolute Lymphocyte Count 1.43 X10^3/uL (0.83-4.51); Absolute Neutrophil Count 5.4 X10^3/uL (2.0-7.7); Basophil# 0.09 X10^3/uL; Basophil% 1.2 % (0-1); Eosinophil# 0.08 X10^3/uL; Eosinophils% 1.1 % (0-5); Hematocrit 45.9 % (37-47); Hemoglobin 14.9 g/dL (12.0-15.0); Lymphocyte # 1.43 X10^3/ul (0.83-4.51); Lymphocyte % 19.2 % (19-41); Mean Corp Hgb Conc 32.5 g/dL (32-36); Mean Corpuscular Hgb 30.1 pg (27.0-32.0); Mean Corpuscular Volume 92.7 fL (81-99); Mean Platelet Vol. 10.2 fl (6.2-12.0); Monocyte# 0.36 X10^3/uL; Monocyte% 4.8 % (0-10); NRBC Flagged by Analyzer 0 % (0-5); Neutrophil # 5.43 X10^3/uL (2.7-7.7); Neutrophil % 73.2 % (47-70); Platelet Count 211 K/mm3 (150-450); RBC Distribution Width CV 13.4 % (11.6-14.6); RBC Distribution Width SD 46.3 fl (35.1-43.9); Red Blood Count 4.95 M/mm3 (4.2-5.4); White Blood Count 7.4 K/mm3 (4.4-11.0)
[2023-02-04] MEDS: 0.9% Normal Saline 1,000 ML 1000 ML IV (12:01)
[2023-02-04 12:02] LABS: ALB/GLOB Ratio 0.8 RATIO (0.9-2.4); AST(SGOT) 83 U/L (15-37); Alanine Aminotransfer ALT/SGPT 37 U/L (13-56); Albumin, Serum 3.4 g/dL (3.2-5.0); Alkaline Phosphatase 89 U/L (45-117); Anion Gap 10 (5-15); BUN 31 mg/dL (7-18); BUN/Creat Ratio 15.6 RATIO (10-20); CPK Total, Creatine Kinase 971 U/L (26-192); Calcium,Total 9.5 mg/dL (8.5-10.1); Chloride 107 mmol/L (98-107); Creatinine, Serum 1.99 mg/dL (0.55-1.02); EST Glomerular Filtration Rate 25 mL/min (>60); Est Glom Filt Rate - Afr Amer 31 mL/min (>60); Globulin 4.1 g/dL (2.2-4.2); Glucose 110 mg/dL (74-106); Potassium 3.7 mmol/L (3.5-5.1); Protein, Total 7.5 g/dL (6.4-8.2); Sodium Level 138 mmol/L (136-145); Troponin-I HS 515 pg/mL (3.0-54.0)
[2023-02-04] MEDS: Aspirin 81 MG TAB.CHEW 162 MG PO (12:13)
--- NOTE | 2023-02-04 13:01 | NURSING ---
[address] [place], OLIVER, RHABDOMYOLYSIS, ELEVATED TROP, AFIB
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
[2023-02-04 15:41] LABS: ALB/GLOB Ratio 0.8 RATIO (0.9-2.4); AST(SGOT) 75 U/L (15-37); Alanine Aminotransfer ALT/SGPT 34 U/L (13-56); Alkaline Phosphatase 82 U/L (45-117); Anion Gap 10 (5-15); BUN 31 mg/dL (7-18); Calcium,Total 8.8 mg/dL (8.5-10.1); Chloride 109 mmol/L (98-107); Creatinine, Serum 1.82 mg/dL (0.55-1.02); EST Glomerular Filtration Rate 28 mL/min (>60); Est Glom Filt Rate - Afr Amer 34 mL/min (>60); Estimated Creatinine Clearance 21.07 ml/min; Globulin 3.8 g/dL (2.2-4.2); Glucose 98 mg/dL (74-106); Magnesium 1.8 mg/dL (1.6-2.6); Potassium 3.3 mmol/L (3.5-5.1); Protein, Total 6.8 g/dL (6.4-8.2); Sodium Level 141 mmol/L (136-145); Troponin-I HS 480 pg/mL (3.0-54.0)
[2023-02-04 16:38] LABS: CPK Total, Creatine Kinase 932 U/L (26-192)
[2023-02-04] MEDS: 0.9% Normal Saline 1,000 ML 100 ML IV (16:51)
[2023-02-04] MEDS: 0.9% Saline Lock 10 ML Syringe IV (16:53)
[2023-02-04] MEDS: Acetaminophen 500 MG Tablet 1000 MG PO ×2 (16:55→21:13)
[2023-02-04] MEDS: Heparin Injection (Vial) 5,000 UNIT/ML VIAL 5000 UNIT SC ×2 (16:55→21:14)
[2023-02-04] MEDS: Potassium Chloride Oral Tablet 20 MEQ 40 MEQ PO (17:00)
[2023-02-04 18:09] LABS: Troponin-I HS 413 pg/mL (3.0-54.0)
[2023-02-04 20:43] LABS: ALB/GLOB Ratio 0.8 RATIO (0.9-2.4); AST(SGOT) 72 U/L (15-37); Alanine Aminotransfer ALT/SGPT 36 U/L (13-56); Albumin, Serum 2.9 g/dL (3.2-5.0); Alkaline Phosphatase 81 U/L (45-117); Anion Gap 8 (5-15); BUN 35 mg/dL (7-18); BUN/Creat Ratio 17.4 RATIO (10-20); Calcium,Total 8.6 mg/dL (8.5-10.1); Chloride 108 mmol/L (98-107); Creatinine, Serum 2.01 mg/dL (0.55-1.02); EST Glomerular Filtration Rate 25 mL/min (>60); Est Glom Filt Rate - Afr Amer 30 mL/min (>60); Estimated Creatinine Clearance 19.08 ml/min; Globulin 3.7 g/dL (2.2-4.2); Glucose 127 mg/dL (74-106); Magnesium 2.4 mg/dL (1.6-2.6); Potassium 3.8 mmol/L (3.5-5.1); Protein, Total 6.6 g/dL (6.4-8.2); Sodium Level 140 mmol/L (136-145)
[2023-02-04 20:45] LABS: CPK Total, Creatine Kinase 919 U/L (26-192)
[2023-02-04] MEDS: Metoprolol Tartrate 25 MG Tablet PO (21:14)
[2023-02-04 22:35] LABS: Bacteria 0 SEEN /hpf (None Seen); Mucous, Urine 0 SEEN /hpf (<or=2+)
[2023-02-04 22:38] LABS: Color, Urine Yellow (Yellow); Glucose, Dipstick Normal (Normal); Ketone-Dipstick 15 mg/dl (Negative); Leukocyte Esterase-Dipstick 25 /ul (Negative); Nitrite-Dipstick Negative (Negative); Occult Blood-Urine 25 /ul (Negative); Protein-Dipstick 30 mg/dl (Negative); Urine Clarity Clear (Clear); Urine Urobilinogen Normal (Normal)
[2023-02-04 22:39] LABS: Urine Bilirubin Dipstick 1 mg/dL (Negative)
[2023-02-04 22:45] LABS: White Blood Cells 0-5 SEEN /hpf (0-5)
[2023-02-04 22:46] LABS: Amorphous Sediment 1+ URATE; Red Blood Cells-Urine 0-5 SEEN /hpf (0-5); Squamous Epithelial Cells - UA 0-5 SEEN /hpf (5-10)
[2023-02-04 22:54] LABS: Urea Nitrogen, Urine 693 mg/dL (NO RANGE EST.); Urine Chloride 46 mmol/L (Not Establ.); Urine Sodium 63 mmol/L (Not Establ.)
[2023-02-05 00:28] LABS: ALB/GLOB Ratio 0.8 RATIO (0.9-2.4); AST(SGOT) 69 U/L (15-37); Alanine Aminotransfer ALT/SGPT 35 U/L (13-56); Albumin, Serum 2.8 g/dL (3.2-5.0); Alkaline Phosphatase 79 U/L (45-117); Anion Gap 8 (5-15); BUN 36 mg/dL (7-18); BUN/Creat Ratio 18.8 RATIO (10-20); Calcium,Total 8.7 mg/dL (8.5-10.1); Chloride 109 mmol/L (98-107); Creatinine, Serum 1.92 mg/dL (0.55-1.02); EST Glomerular Filtration Rate 26 mL/min (>60); Est Glom Filt Rate - Afr Amer 32 mL/min (>60); Estimated Creatinine Clearance 19.98 ml/min; Globulin 3.6 g/dL (2.2-4.2); Glucose 108 mg/dL (74-106); Magnesium 2.3 mg/dL (1.6-2.6); Potassium 3.4 mmol/L (3.5-5.1); Protein, Total 6.4 g/dL (6.4-8.2); Sodium Level 139 mmol/L (136-145)
[2023-02-05 00:33] LABS: CPK Total, Creatine Kinase 858 U/L (26-192)
[2023-02-05 03:29] VITALS: BP 127/87; PULSE 84; RESP 18; TEMP 36.6; O2SAT 100
[2023-02-05] MEDS: Potassium Chloride Oral Tablet 20 MEQ 40 MEQ PO (03:32)
[2023-02-05] MEDS: Heparin Injection (Vial) 5,000 UNIT/ML VIAL 5000 UNIT SC ×2 (05:14→22:45)
[2023-02-05] MEDS: 0.9% Normal Saline 1,000 ML 100 ML IV (05:14)
[2023-02-05] MEDS: Levothyroxine 25 MCG TABLET PO (05:14)
[2023-02-05] MEDS: Acetaminophen 500 MG Tablet 1000 MG PO (05:15)
[2023-02-05 06:00] VITALS: BMI 31.8
[2023-02-05 07:00] LABS: Absolute Lymphocyte Count 1.42 X10^3/uL (0.83-4.51); Basophil# 0.12 X10^3/uL; Basophil% 2.3 % (0-1); Eosinophil# 0.44 X10^3/uL; Eosinophils% 8.5 % (0-5); Hematocrit 40.4 % (37-47); Hemoglobin 12.6 g/dL (12.0-15.0); Lymphocyte # 1.42 X10^3/ul (0.83-4.51); Lymphocyte % 27.4 % (19-41); Mean Corp Hgb Conc 31.2 g/dL (32-36); Mean Corpuscular Hgb 29.9 pg (27.0-32.0); Mean Platelet Vol. 10.8 fl (6.2-12.0); Monocyte# 0.19 X10^3/uL; Monocyte% 3.7 % (0-10); NRBC Flagged by Analyzer 0 % (0-5); Neutrophil % 57.9 % (47-70); Platelet Count 202 K/mm3 (150-450); RBC Distribution Width CV 13.5 % (11.6-14.6); RBC Distribution Width SD 47.8 fl (35.1-43.9); Red Blood Count 4.21 M/mm3 (4.2-5.4); White Blood Count 5.2 K/mm3 (4.4-11.0)
[2023-02-05 07:28] LABS: ALB/GLOB Ratio 0.8 RATIO (0.9-2.4); AST(SGOT) 67 U/L (15-37); Alanine Aminotransfer ALT/SGPT 35 U/L (13-56); Albumin, Serum 2.8 g/dL (3.2-5.0); Alkaline Phosphatase 75 U/L (45-117); Anion Gap 8 (5-15); BUN 36 mg/dL (7-18); BUN/Creat Ratio 19.7 RATIO (10-20); Calcium,Total 8.4 mg/dL (8.5-10.1); Chloride 111 mmol/L (98-107); Creatinine, Serum 1.83 mg/dL (0.55-1.02); EST Glomerular Filtration Rate 28 mL/min (>60); Est Glom Filt Rate - Afr Amer 34 mL/min (>60); Estimated Creatinine Clearance 20.96 ml/min; Globulin 3.5 g/dL (2.2-4.2); Glucose 114 mg/dL (74-106); Magnesium 2.3 mg/dL (1.6-2.6); Potassium 3.6 mmol/L (3.5-5.1); Protein, Total 6.3 g/dL (6.4-8.2); Sodium Level 141 mmol/L (136-145)
[2023-02-05 08:02] VITALS: BP 151/93; PULSE 90; RESP 18; TEMP 36.4; O2SAT 98
[2023-02-05 08:08] VITALS: PULSE 90
[2023-02-05] MEDS: Metoprolol Tartrate 25 MG Tablet PO (08:08)
--- NOTE | 2023-02-05 08:36 | NURSING ---
charge nurse Julio, aware of needing pt home med list clarification
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
[2023-02-05] MEDS: RisperiDONE 0.25 MG Tablet PO ×3 (11:37→22:44)
--- NOTE | 2023-02-05 13:03 | CASEMGMT ---
ENIO DAILY Discharge Planning Assessment: Face to Face with patient for initial transition planning/care coordination assessment.?ENIO DAILY introduced self and role at [facility] to pt and pt's son and LIBORIO. All voices understanding. Pt was agreeable to participating in assessment and with her son. Noted pt alert, sitting up in a chair but not answering questions appropriately. Care providers, pharmacy,?and demographics verified with pt's son. Pt's son provided majority of information for assessment. ? Admitting dx: fall, OLIVER, elevated troponin PCP: Percy Specialists: Kalli (oral surgeon-was to have OR on Monday 02/12) Preferred Pharmacy: [facility] Retail Insurance: DAX[employer] Prescription Benefit:?yes Living Will/HPOA: per pt's son Tavo, pt's sister Ivy Cifuentes is pt's HPOA. Call placed to Ivy who verifies this and states the living will and HPOA documents are being faxed to [facility] by pt's food expeditor's office LNOK: sister Ivy, sons Tavo and [facility] Arrangements: Pt lives alone in a single story home and has been independent with all ADLs and has been managing her own meds. Pt has a hired cleaning lady. Transportation: Pt drives. Son Tavo and LIBORIO state they both work multimedia teacher and would have difficulty transporting pt to appointments but could make arrangements DME: grab bars, cane (doesn't use, carries it around) HHC/SNF: denies Per conversation with pt's sister Ivy who lives in [place], pt has been independent but noted through phone conversations that pt has begun to have some cognitive issues. Ivy last saw pt in person in July of 2022 and had planned to visit this weekend to accompany pt to oral surgery procedure. Ivy is driving on this date to [place] to participate in decision making for pt's care needs. Discussed discharge needs and sister states she does not feel pt is appropriate or safe to return home alone and is receptive to SNF or AL at discharge. Ivy states that pt has been adamant in the past that she will not go to an assisted living facility. Discussed with Ivy that CM not in house tomorrow 02/06 but lists of facilities would be left in pt's room for review and we will follow-up on Sunday. Discussed with PATRICK Wills. Call placed to HIM and AD documents have not yet been received. Requested they notify PCU if obtained, Isadora agreeable. Plan: ANALISA Menjivar RN CM
--- NOTE | 2023-02-05 13:24 | CASEMGMT ---
Discharge Planning SNF list created and given to SW. Akua Salgado, Discharge Planning Asst.
--- NOTE | 2023-02-05 13:30 | NURSING ---
notified of pt increased restlessness
--- NOTE | 2023-02-05 13:39 | NURSING ---
Nursing supervisor grips Juliana and charge nurse Julio STEEN aware of need for possible sitter for pt
--- NOTE | 2023-02-05 13:43 | CASEMGMT ---
Per RN CM family is considering longterm facility for patient. Patient's sister who is also patient's healthcare Power of banking attorney will be coming in from out of state. Akua granda/nilsa manager transportation planning printed patient a list of longterm facility providers including quality and resource use data and consistent with patient?s preferred geographic region, medical needs, and insurance network were provided from the [facility] Guide. SW went to patient's and placed the list with patient's hospital folder. Patient told SW she has so much to do and just wants to leave in the car and come back. SW told patient she is not medically ready for discharge. SW will check back with patient and family Sunday. Elma Laguerre [employer]ONE [employer] SAWYER AGUSTIN
--- NOTE | 2023-02-05 13:55 | NURSING ---
pt will not leave telemetry monitoring on either.
--- NOTE | 2023-02-05 14:46 | CHAPLAIN ---
Type of Pastoral Visit _x__ Initial Visit ___ Follow-up Visit ___ On-call Visit ___ General Patient Visit ___ Spiritual Assessment ___ Family Conference ___ Bereavement ___ Rapid Response ___ Code Blue ___ Other (describe below) Pastoral Care Referral From _x__ Patient ___ Family ___ Nurse ___ Physician ___ Professor Of Public Administration ___ Tipple Worker ___ Other (describe below) Sacrament/Intervention _x__ Active listening ___ Anointing ___ Holiness ___ Bereavement ___ Communion ___ Dulce exploration ___ _x__ Life review _x__ Prayer ___ Reconciliation ___ Sacrament of Sick _x__ Supportive presence ___ Wedding ___ Other (describe below) Pastoral Comments patient had a neighbor visit and was promised a return visit; ATHLETIC TRAINER requests visit for patient soon thereafter; pt was setting off bed alarm; sat with patient for extended time and talked with her; diversion was pretty successful and pt has much difficulty using words that make sense; pt is able to answer some questions but displays inability to assess for herself what her condition is in right now; pt has incomplete thoughts but this bond runner goes along with her conversation; pt is able to state that prayer would be good and then repeats it how much she is thankful that prayer would be given; pt is expressive of thanks for visit and yet tries to get out of bed by herself; call light put on and ATHLETIC TRAINER soons comes to assist patient into reclining position for rest
--- NOTE | 2023-02-05 14:47 | NURSING ---
sitter at bedside
[2023-02-05] MEDS: lamoTRIgine 100 MG Tablet PO ×2 (16:16→22:43)
[2023-02-05] MEDS: LORazepam 0.5 MG Tablet 0.25 MG PO (16:16)
--- NOTE | 2023-02-05 17:50 | NURSING ---
unable to get afternoon vitals d/t pt uncooperative/agitated.
[2023-02-05] MEDS: MELATONIN 10 MG TABLET PO (22:43)
[2023-02-05] MEDS: Pravastatin 20 MG Tablet PO (22:43)
[2023-02-05 22:44] VITALS: BP 152/99; PULSE 84
[2023-02-05] MEDS: Metoprolol Tartrate 25 MG Tablet 12.5 MG PO (22:44)
[2023-02-05 22:58] VITALS: BP 152/99; PULSE 84; RESP 16; TEMP 36.6; O2SAT 98
[2023-02-06] VITALS (7 sets, daily range): BP systolic 116–159; BP diastolic 58–92; PULSE 74–93; RESP 16; TEMP 36–36.6; O2SAT 92–100; BMI 31.8
[2023-02-06 06:03] LABS: Absolute Lymphocyte Count 1.54 X10^3/uL (0.83-4.51); Absolute Neutrophil Count 2.2 X10^3/uL (2.0-7.7); Basophil# 0.12 X10^3/uL; Basophil% 2.6 % (0-1); Eosinophil# 0.51 X10^3/uL; Hematocrit 39.3 % (37-47); Hemoglobin 12.4 g/dL (12.0-15.0); Lymphocyte # 1.54 X10^3/ul (0.83-4.51); Lymphocyte % 33.3 % (19-41); Mean Corp Hgb Conc 31.6 g/dL (32-36); Mean Corpuscular Volume 94.9 fL (81-99); Mean Platelet Vol. 10.2 fl (6.2-12.0); Monocyte% 4.3 % (0-10); NRBC Flagged by Analyzer 0 % (0-5); Neutrophil # 2.24 X10^3/uL (2.7-7.7); Neutrophil % 48.4 % (47-70); Platelet Count 197 K/mm3 (150-450); RBC Distribution Width CV 13.8 % (11.6-14.6); RBC Distribution Width SD 47.9 fl (35.1-43.9); Red Blood Count 4.14 M/mm3 (4.2-5.4); White Blood Count 4.6 K/mm3 (4.4-11.0)
[2023-02-06] MEDS: Heparin Injection (Vial) 5,000 UNIT/ML VIAL 5000 UNIT SC ×3 (06:30→21:00)
[2023-02-06] MEDS: Levothyroxine 25 MCG TABLET PO (06:30)
[2023-02-06 06:41] LABS: ALB/GLOB Ratio 0.8 RATIO (0.9-2.4); AST(SGOT) 65 U/L (15-37); Alanine Aminotransfer ALT/SGPT 34 U/L (13-56); Albumin, Serum 2.8 g/dL (3.2-5.0); Alkaline Phosphatase 73 U/L (45-117); Anion Gap 5 (5-15); BUN 37 mg/dL (7-18); Calcium,Total 8.3 mg/dL (8.5-10.1); Chloride 114 mmol/L (98-107); Creatinine, Serum 1.61 mg/dL (0.55-1.02); EST Glomerular Filtration Rate 32 mL/min (>60); Est Glom Filt Rate - Afr Amer 39 mL/min (>60); Estimated Creatinine Clearance 23.82 ml/min; Globulin 3.5 g/dL (2.2-4.2); Glucose 96 mg/dL (74-106); Protein, Total 6.3 g/dL (6.4-8.2); Sodium Level 141 mmol/L (136-145)
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
[2023-02-06] MEDS: Metoprolol Tartrate 25 MG Tablet 12.5 MG PO ×2 (10:59→21:00)
[2023-02-06] MEDS: Clopidogrel Bisulfate 75 MG Tablet PO (10:59)
[2023-02-06] MEDS: RisperiDONE 0.25 MG Tablet PO ×2 (10:59→21:00)
[2023-02-06] MEDS: lamoTRIgine 100 MG Tablet 200 MG PO ×2 (11:00→21:00)
[2023-02-06] MEDS: Pantoprazole Sodium 40 MG Tablet PO (11:00)
[2023-02-06] MEDS: Allopurinol 100 MG Tablet PO (11:00)
[2023-02-06] MEDS: Pravastatin 20 MG Tablet PO (21:00)
[2023-02-06] MEDS: MELATONIN 10 MG TABLET PO (21:00)
[2023-02-07] VITALS (8 sets, daily range): BP systolic 153–170; BP diastolic 82–111; PULSE 77–111; RESP 16–18; TEMP 36.1–36.8; O2SAT 88–100; BMI 32.5
[2023-02-07] MEDS: Levothyroxine 25 MCG TABLET PO (06:00)
[2023-02-07] MEDS: Heparin Injection (Vial) 5,000 UNIT/ML VIAL 5000 UNIT SC ×3 (06:00→21:59)
[2023-02-07] MEDS: RisperiDONE 0.25 MG Tablet PO ×2 (08:30→22:00)
[2023-02-07] MEDS: Metoprolol Tartrate 25 MG Tablet 12.5 MG PO ×2 (08:31→22:00)
[2023-02-07] MEDS: Pantoprazole Sodium 40 MG Tablet PO (08:32)
[2023-02-07] MEDS: lamoTRIgine 100 MG Tablet 200 MG PO ×2 (08:32→22:00)
[2023-02-07] MEDS: Clopidogrel Bisulfate 75 MG Tablet PO (08:32)
[2023-02-07] MEDS: Allopurinol 100 MG Tablet PO (08:32)
--- NOTE | 2023-02-07 09:11 | CASEMGMT ---
Addendum entered by Anamaria Streeter 02/07/23 10:27: Social Work Please note sisters number is [phone]. RORO Malone Original Note: Social Work SW spoke w/pt and sister/POA Ivy Cifuentes([phone]) in room in regard to residential placement. Pt's sister and pt, as per sister Ivy, have not yet spoken about SNF placement. Pt's sister inquiring about the appropriate level of care. SW educated pt's sister that fpc facility is the appropriate level of care, and the list left for her is a list of nursing homes. We spoke about short vs. ship pilot dispatcher care. SW explained that insurance covers short term care as long as pt qualifies, SW explained that Medicaid covers ship pilot dispatcher care. SW educated sister that this depends on pt's finances, and that if pt has savings, this would go for the cost of the residential initially, until pt spends down her money to qualify for Medicaid. SW explained if detention care would be needed the residential would work with them on this. SW explained the plan would be to try to get pt in initially under her [employer] insurance. Pt's sister states understanding. She plans to speak w/pt's son Tavo who is in [place] and get back to PATRICK w/heriberto. PATRICK encouraged her to do this as soon as possible, as we still need to send the referral to the facilities, get an accepting facility and then get precert from insurance. PATRICK explained that pt would stay here while we go through this process. Ivy states understanding. She will reach out to pt's son today and call PATRICK w/heriberto. Plan: SNF, sister Ivy to get back to PATRICK landaverde/heriberto and SW will then start referral process. RORO Malone
--- NOTE | 2023-02-07 10:19 | RAD_ITS ---
STUDY: X-RAY CHEST REASON FOR EXAM: Female, 82 years old. Hypoxic TECHNIQUE: Single AP portable view of the chest. COMPARISON: Comparison is made with prior study February 04, 2023. FINDINGS: EKG electrodes are seen. Increased markings at the lung bases suggestive of bibasilar atelectasis and/or early infiltrates worse on the right lung base. There is no demonstrated pleural abnormality. Normal size heart. Normal mediastinum and blanka. Normal visualized pulmonary arteries. There is atherosclerotic calcification of the aortic arch with tortuosity. There are diffuse degenerative changes of the visualized thoracic spine. There is degenerative osteoarthritis of the bilateral shoulders. There is no demonstrated abnormality of the visualized soft tissue structures of the upper abdomen. RAD/Chest 1 View (Portable) IMPRESSION: Increased markings at the lung bases suggestive of bibasilar atelectasis and/or early infiltrates. Electronically Signed: Carlos Weeks MD at 11:28 EDT ,
--- NOTE | 2023-02-07 10:23 | CASEMGMT ---
Social Work Pt's sister did let SW know choices, 1. [place], 2. [facility]. Referrals will be sent today, SW will continue to follow. RORO Malone
--- NOTE | 2023-02-07 10:24 | CASEMGMT ---
Discharge Planning Referral sent to [facility] via [facility]. Akua Salgado, Discharge Planning Asst.
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
[2023-02-07 10:50] LABS: Absolute Lymphocyte Count 1.05 X10^3/uL (0.83-4.51); Absolute Neutrophil Count 2.9 X10^3/uL (2.0-7.7); Basophil# 0.06 X10^3/uL; Basophil% 1.4 % (0-1); Eosinophils% 4.5 % (0-5); Hematocrit 41.6 % (37-47); Lymphocyte # 1.05 X10^3/ul (0.83-4.51); Lymphocyte % 23.8 % (19-41); Mean Corp Hgb Conc 31.3 g/dL (32-36); Mean Corpuscular Hgb 30.2 pg (27.0-32.0); Mean Corpuscular Volume 96.5 fL (81-99); Mean Platelet Vol. 10.3 fl (6.2-12.0); Monocyte# 0.17 X10^3/uL; Monocyte% 3.9 % (0-10); NRBC Flagged by Analyzer 0 % (0-5); Neutrophil # 2.92 X10^3/uL (2.7-7.7); Neutrophil % 66.2 % (47-70); Platelet Count 211 K/mm3 (150-450); RBC Distribution Width CV 13.5 % (11.6-14.6); Red Blood Count 4.31 M/mm3 (4.2-5.4); White Blood Count 4.4 K/mm3 (4.4-11.0)
[2023-02-07 11:01] LABS: D-Dimer Quantitative (DVT/PE) 2.39 FEU/ug/m (0.27-0.49)
[2023-02-07 11:05] LABS: ALB/GLOB Ratio 0.8 RATIO (0.9-2.4); AST(SGOT) 43 U/L (15-37); Alanine Aminotransfer ALT/SGPT 37 U/L (13-56); Albumin, Serum 2.9 g/dL (3.2-5.0); Alkaline Phosphatase 85 U/L (45-117); Anion Gap 8 (5-15); BUN 31 mg/dL (7-18); BUN/Creat Ratio 18.8 RATIO (10-20); Calcium,Total 8.9 mg/dL (8.5-10.1); Chloride 112 mmol/L (98-107); Creatinine, Serum 1.65 mg/dL (0.55-1.02); EST Glomerular Filtration Rate 32 mL/min (>60); Est Glom Filt Rate - Afr Amer 38 mL/min (>60); Estimated Creatinine Clearance 23.25 ml/min; Globulin 3.8 g/dL (2.2-4.2); Glucose 153 mg/dL (74-106); Potassium 3.6 mmol/L (3.5-5.1); Protein, Total 6.7 g/dL (6.4-8.2); Sodium Level 140 mmol/L (136-145)
[2023-02-07 11:22] LABS: BNP,B-Type NATRIURETIC PEPTIDE 464.8 pg/mL (0-100)
[2023-02-07] MEDS: 0.9% Saline Lock 10 ML Syringe IV (12:23)
--- NOTE | 2023-02-07 13:24 | EKG12_ITS ---
Test Reason : Blood Pressure : / mmHG Vent. Rate : 098 BPM Atrial Rate : 000 BPM P-R Int : 000 ms QRS Dur : 102 ms QT Int : 398 ms P-R-T Axes : 000 -70 016 degrees QTc Int : 508 ms Atrial fibrillation Left anterior fascicular block Cannot rule out Inferior infarct (cited on or before 05-DEC-2014) Abnormal ECG When compared with ECG of 04-FEB-2023 11:23, Questionable change in initial forces of Inferior leads Confirmed by MARCELLUS ISSA, DANNY ([id number]), editor magazine POLO BUI ([id number]) on 02/12/2023 1:26:53 PM Referred By: Confirmed By:MIRIAM GERMAIN MD
[2023-02-07] MEDS: Furosemide 20 MG/2 ML VIAL 10 MG IV (13:36)
[2023-02-07] MEDS: LORazepam 0.5 MG Tablet 0.25 MG PO ×2 (15:10→19:15)
--- NOTE | 2023-02-07 17:56 | ECHOL_ITS ---
Reason For Study: DYSPNEA/SOB, ASSESS RV STRAIN AND LVEF. Procedure This was a limited 2D transthoracic echocardiogram. The study was technically difficult. PT lying in right lateral decubitus position and unable to reposition due to agitation. Exam performed portable in patient room. Left Ventricle Normal LV size. The estimated ejection fraction is 55 %. Unable to assess diastolic dysfunction. No regional wall motion abnormalities noted. Right Ventricle Normal RV size. Normal systolic function. Atria The left atrium is severely enlarged. Normal right atrium. No doppler evidence for ASD. Mitral Valve There is moderate mitral annular calcification. There is no mitral valve stenosis. No mitral valve insufficiency. Tricuspid Valve There is no tricuspid stenosis. No tricuspid valve insufficiency. Aortic Valve Trisinus/trileaflet aortic valve. There is no aortic stenosis. No aortic valve insufficiency. Pulmonic Valve There is no pulmonic valvular stenosis. No pulmonic valve insufficiency. Great Vessels Normal aortic root. Pericardium/Pleural Small pericardial effusion. MMode/2D Measurements & Calculations LVIDd: 4.6 cm IVSd: 1.2 cm Ao root diam: 3.1 cm LVIDs: 3.6 cm LVPWd: 1.3 cm RVDd: 2.9 cm FS: 21.7 % LAV(MOD-bp): 132.5 ml LVAd ap4: 27.6 cm2 LVAd ap2: 28.1 cm2 LAV(MOD-bp) Indexed: 69.6 ml/m2 LVLd ap4: 7.7 cm LVLd ap2: 7.9 cm LAV(MOD-sp2): 93.5 ml EDV(MOD-sp4): 88.4 ml EDV(MOD-sp2): 82.3 ml LAV(MOD-sp4): 137.3 ml EDV(sp4-el): 83.5 ml EDV(sp2-el): 84.3 ml LVAs ap4: 19.6 cm2 LVAs ap2: 19.4 cm2 LVLs ap4: 7.2 cm LVLs ap2: 7.9 cm ESV(MOD-sp4): 46.2 ml ESV(MOD-sp2): 44.7 ml ESV(sp4-el): 45.2 ml ESV(sp2-el): 40.4 ml EF(MOD-sp4): 47.8 % EF(MOD-sp2): 45.7 % EF(sp4-el): 45.9 % SV(MOD-sp4): 42.2 ml SV(MOD-sp2): 37.6 ml SV(sp4-el): 38.3 ml LA dimension(2D): 5.2 cm LA A4 area: 36.0 cm2 RA A4 area: 24.1 cm2 ECHO/Echo, Limited Study Interpretation Summary The estimated ejection fraction is 55 %. Unable to assess diastolic dysfunction. The left atrium is severely enlarged. Small pericardial effusion. Ordering Physician: Yamileth Sunshine Referring Physician: Roni Greer Performed By: Dalila Howard, EULALIA, RVT
--- NOTE | 2023-02-07 17:56 | VDLE_ITS ---
Reason For Study: elevated D-Dimer RIGHT LEFT GSV is normal. GSV is normal. CFV is compressible, spontaneous, phasic, CFV is compressible, spontaneous, phasic, competent and demonstrates normal competent, and demonstrates normal augmentation. augmentation. FV is compressible, spontaneous, phasic, FV is compressible, spontaneous, phasic, competent and demonstrates normal competent and demonstrates normal augmentation. augmentation. POP V is compressible, spontaneous, phasic, PTV is compressible. competent and demonstrates normal LT PerV is compressible. augmentation. Acute deep vein thrombosis is noted in the T/P Trunk is compressible. left popliteal vein. PTV is compressible. Acute deep vein thrombosis is noted in the RT PerV is compressible. left T/P Trunkl vein. Procedure Acute deep vein thrombosis is noted in the This is a venous duplex using B-mode, color left Soleus vein. flow and spectral Doppler. Exam performed portable in patient room. The exam was of fair technical quality due to uncoperative pt.. A preliminary report was called and/or faxed to PCU charge. VL/Venous Duplex US - Pablo Extrem Interpretation Summary Acute deep vein thrombosis is noted in the left popliteal vein, tibioperoneal t runk vein, soleus vein Ordering Physician: Yamileth Sunshine Performed By: Israel Perez RVT
--- NOTE | 2023-02-07 17:58 | PCM.HOSP.N ---
Hospitalist Note Spoke in depth with patient's POA about the low oxygen saturation earlier, possibility of fluid overload, elevated D-dimer and risks and benefits of various options. Ultimately discussed that she Per records was on Eliquis prior to coming in and has been on DVT prophylaxis since she has been here which would lend to less likely being a PE however unclear how many doses she may have missed or her level of compliance with the Eliquis. Did discuss that with her kidney function CTA is not an option and she previously refused to comply with echo, would not be a good candidate for VQ scan due to her difficulty with following directions and her irritability and compliance, can try lower extremity duplex and echo if she is agreeable at all/willing to moving forward when she is more calm. Did discuss that with her A-fib she qualifies to be on anticoagulation anyway however discussed risks and benefits of this especially given her recent fall and her risks of falls with her agitation and being somewhat unsteady and requiring SNF placement. Her x-ray on review of the film appeared slightly congested and patient's O2 sats improved significantly with small dose of IV Lasix, her home Lasix had been held due to being volume depleted initially on if she was doing well had not yet to be resumed. Discussed with POA that if her O2 sat did not improve with diuretics then we can consider empiric anticoagulation if any significant desats or blood pressure instability while awaiting further testing however if O2 sat improved with diuretics then we could hold off on immediate empiric anticoagulation. Discussed risks and benefits of all options and scenarios and her sister/MPOA was in agreement. Patient's O2 sat did improve with the Lasix and suspect this was due to fluid overload, will continue to monitor and will attempt to get echo and/or lower extremity duplex. EKG was also obtained and was not overtly changed from admission. Labs this a.m. not indicative of any infection, kidney function roughly unchanged, BNP was 464 lending further to possible fluid overload.
[2023-02-07] MEDS: MELATONIN 10 MG TABLET PO (22:00)
[2023-02-07] MEDS: Pravastatin 20 MG Tablet PO (22:00)
[2023-02-08] MEDS: LORazepam 2 MG/ML Syringe 1 MG IV (05:29)
[2023-02-08 05:50] LABS: Absolute Lymphocyte Count 1.06 X10^3/uL (0.83-4.51); Absolute Neutrophil Count 2.5 X10^3/uL (2.0-7.7); Basophil# 0.07 X10^3/uL; Basophil% 1.6 % (0-1); Eosinophil# 0.39 X10^3/uL; Eosinophils% 9.2 % (0-5); Hematocrit 39.9 % (37-47); Hemoglobin 12.6 g/dL (12.0-15.0); Lymphocyte # 1.06 X10^3/ul (0.83-4.51); Lymphocyte % 24.9 % (19-41); Mean Corp Hgb Conc 31.6 g/dL (32-36); Mean Corpuscular Hgb 29.9 pg (27.0-32.0); Mean Corpuscular Volume 94.5 fL (81-99); Mean Platelet Vol. 10.1 fl (6.2-12.0); Monocyte# 0.24 X10^3/uL; Monocyte% 5.6 % (0-10); NRBC Flagged by Analyzer 0 % (0-5); Neutrophil # 2.48 X10^3/uL (2.7-7.7); Neutrophil % 58.5 % (47-70); Platelet Count 205 K/mm3 (150-450); RBC Distribution Width CV 13.8 % (11.6-14.6); RBC Distribution Width SD 47.2 fl (35.1-43.9); Red Blood Count 4.22 M/mm3 (4.2-5.4); White Blood Count 4.3 K/mm3 (4.4-11.0)
[2023-02-08 06:00] VITALS: BMI 30.4
[2023-02-08 06:28] LABS: Anion Gap 7 (5-15); BUN 26 mg/dL (7-18); BUN/Creat Ratio 17.2 RATIO (10-20); Calcium,Total 8.7 mg/dL (8.5-10.1); Chloride 114 mmol/L (98-107); Creatinine, Serum 1.51 mg/dL (0.55-1.02); EST Glomerular Filtration Rate 35 mL/min (>60); Est Glom Filt Rate - Afr Amer 42 mL/min (>60); Glucose 108 mg/dL (74-106); Potassium 3.5 mmol/L (3.5-5.1); Sodium Level 143 mmol/L (136-145)
[2023-02-08] MEDS: Heparin Injection (Vial) 5,000 UNIT/ML VIAL 5000 UNIT SC ×2 (06:44→15:59)
[2023-02-08] MEDS: Levothyroxine 25 MCG TABLET PO (06:44)
--- NOTE | 2023-02-08 08:49 | CASEMGMT ---
Discharge Planning Updates sent to [facility] via [employer]. Still awaiting approval. Akua Salgado, Discharge Planning Asst.
--- NOTE | 2023-02-08 09:40 | NURSING ---
Addendum entered by Lilli Hall 02/08/23 12:03: Pt remains lethargic, arousable to voice and touch. Medications continued to be held till pt can safely swallow. 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 Will reassess
[2023-02-08 09:50] VITALS: BP 161/78; PULSE 80; RESP 16; TEMP 36.6; O2SAT 99
--- NOTE | 2023-02-08 09:54 | PN.HOSP_ITS ---
Reason for Visit Reason for Visit: Diagnoses Hypothyroidism, unspecified (02/04/23) Dehydration (02/04/23) Paroxysmal atrial fibrillation (02/04/23) Acute kidney failure, unspecified (02/04/23) Chronic kidney disease, stage 2 (mild) (02/04/23) Weakness (02/04/23) Other specified abnormalities of plasma proteins (02/04/23) Unspecified fall, initial encounter (02/04/23) Subjective Subjective Patient resting comfortably this a.m., did receive IV Ativan due to agitation early in the morning Objective Data Objective Data Vital Signs: Vital Signs Temp Pulse Resp BP Pulse Ox O2 Del Method O2 Flow Rate 97 F L 87 18 170/94 H 100 Room Air 2 02/07/23 20:08 02/07/23 22:00 02/07/23 20:08 02/07/23 22:00 02/07/23 20:08 02/07/23 20:35 02/07/23 10:51 FiO2 30 02/06/23 19:07 Oxygen Flow Rate (L/min) 2 Oxygen Delivery Method Room Air Weight: 83.098 kg Body Mass Index (BMI) 30.4 Intake & Output: Intake and Output for Last 24 Hours 02/06/23 02/07/23 02/08/23 23:59 23:59 23:59 Intake Total 680 / 680 60 / 60 Output Total 300 / 300 Balance 680 / 680 -240 / -240 Lab / Micro Data 02/08/23 05:30 02/08/23 05:30 Labs: Laboratory Results - last 24 hr 02/07/23 10:39: WBC 4.4, RBC 4.31, Hgb 13.0, Hct 41.6, MCV 96.5, MCH 30.2, MCHC 31.3 L, RDW Std Deviation 48.0 H, RDW Coeff of Bebo 13.5, Plt Count 211, MPV 10.3, Immature Gran % (Auto) 0.200, Neut % (Auto) 66.2, Lymph % (Auto) 23.8, [place] % (Auto) 3.9, Eos % (Auto) 4.5, Baso % (Auto) 1.4 H, Absolute Neuts (auto) 2.9, Absolute Lymphs (auto) 1.05, Nucleated RBC % 0, D-Dimer Quant (PE/DVT) 2.39 H*, Sodium 140, Potassium 3.6, Chloride 112 H, Carbon Dioxide 20.0 L, Anion Gap 8, BUN 31 H, Creatinine 1.65 H, Estim Creat Clear Calc 23.25, Est GFR (MDRD) Af Amer 38 L, Est GFR (MDRD) Non-Af 32 L, BUN/Creatinine Ratio 18.8, Glucose 153 H, Calcium 8.9, Total Bilirubin 0.50, AST 43 H, ALT 37, Alkaline Phosphatase 85, B- Natriuretic Peptide 464.8 H, Total Protein 6.7, Albumin 2.9 L, Globulin 3.8, Albumin/Globulin Ratio 0.8 L 02/08/23 05:30: WBC 4.3 L, RBC 4.22, Hgb 12.6, Hct 39.9, MCV 94.5, MCH 29.9, MCHC 31.6 L, RDW Std Deviation 47.2 H, RDW Coeff of Bebo 13.8, Plt Count 205, MPV 10.1, Immature Gran % (Auto) 0.200, Neut % (Auto) 58.5, Lymph % (Auto) 24.9, [place] % (Auto) 5.6, Eos % (Auto) 9.2 H, Baso % (Auto) 1.6 H, Absolute Neuts (auto) 2.5, Absolute Lymphs (auto) 1.06, Nucleated RBC % 0, Sodium 143, Potassium 3.5, Chloride 114 H, Carbon Dioxide 22.0, Anion Gap 7, BUN 26 H, Creatinine 1.51 H, Estim Creat Clear Calc 25.40, Est GFR (MDRD) Af Amer 42 L, Est GFR (MDRD) Non-Af 35 L, BUN/Creatinine Ratio 17.2, Glucose 108 H, Calcium 8.7 Radiography Diagnostic Testing: Radiology Impression Chest X-Ray 02/07/23 10:19 IMPRESSION: Increased markings at the lung bases suggestive of bibasilar atelectasis and/or early infiltrates. Electronically Signed: Carlos Weeks MD at 11:28 EDT , Physical Exam Narrative General: Resting comfortably HEENT: Normocephalic Eyes: Eyes closed comfortably Neck: Supple Respiratory: normal respiratory effort Cardiovascular: no edema appreciated GI: nondistended Extremities: Moving all extremities Neuro: No overt focal neurological deficits Psych: Resting comfortably, presently not combative Assessment & Plan Assessment/Plan (1) Acute kidney injury: (2) Chronic kidney disease (CKD): QUALIFIERS: Chronic kidney disease stage: stage 2 (mild) Qualified Code(s): N18.2 - Chronic kidney disease, stage 2 (mild) (3) Hypothyroidism: QUALIFIERS: Hypothyroidism type: acquired Qualified Code(s): E03.9 - Hypothyroidism, unspecified (4) Atrial fibrillation: QUALIFIERS: Atrial fibrillation type: paroxysmal Qualified Code(s): I48.0 - Paroxysmal atrial fibrillation (5) Elevated troponin: (6) Weakness: (7) Fall: QUALIFIERS: Encounter type: initial encounter Qualified Code(s): W19.XXXA - Unspecified fall, initial encounter (8) Dehydration: PLAN: Plan #Acute hypoxia -Unclear etiology, patient desaturated to 84 to 86% on room air after ambulating and had increased shortness of breath which she had not had previously but elinor khalida on 2 L NC and saturating in high 90s and was otherwise vitally stable -Patient had refused echocardiogram on admission adamantly and due to no shortness of breath and clinical improvement it was canceled, last echo was in 2020 with an EF of 55% and mild concentric left ventricular hypertrophy and was unable to assess RVSP or diastolic dysfunction -Chest x-ray with increased markings at the lung bases, independent interpretation with concern for some vascular congestion and BNP was 464. [facility] pacheco's home Lasix had been held due to her kidney injury and being clinically dehydrated however suspect there is some aspect of fluid overload -D-dimer was 2.39, on medication updated by PCPs office med list patient was on Eliquis 5 mg twice daily at home and here has been consistently getting heparin subcu and has been fairly ambulatory however this is elevated beyond what would be expected even if age-adjusted. With kidney function cannot perform CTA and due to her difficulty with cooperation do not think she would be able to participate in VQ scan -Will obtain EKG to assess for right heart strain -We will attempt for lower extremity duplex -If patient amenable/cooperative enough to sit still would benefit from echo -We will discuss with POA about risks and benefits of resuming anticoagulation as she qualifies for AC given her atrial fibrillation anyway but with falls she is at increased risk of bleeding. -02/08: Resolved with diuresis, attempted to get limited echo and lower extremity duplex with the elevated D-dimer however given improvement with diuresis much lower suspicion for PE being primary culprit #OLIVER on CKD stage IIIb -Baseline creatinine seems to be around 1.2?1.4 and on admission is 1.99 -Likely secondary to dehydration, cannot rule out rhabdomyolysis though pres entation not classic for this -Fluids, supportive care -02/05: Creatinine variable, continue supportive care, given no previous lab values since 2021 is possible this is present baseline though FeNa was 0.6 indicating prerenal etiology -02/06: Improving -02/07: Slightly worse today but vacillates within a small window, suspect that this is more likely new baseline -02/08: Improved further #Hyperactive delirium -Likely secondary to age in addition to illness and hospitalization -Schedule Risperdal -Home med list updated and patient was on Lamictal, gave 100 mg dose due to increasing agitation and will give another 100 mg this evening as she takes 200 mg twice daily, monitor closely, sitter is able -02/06: More cooperative, still somewhat irritable and suspicious. Discussed with sister who reported that she has slowly had worsening of her memory and was quicker to anger that usually was more appropriate and scenarios prior to now. Counseled on present situation, patient now back to home dose of Lamictal and is on Risperdal. From a medical standpoint feel it is reasonable to pursue placement at this time -02/07: Has been doing better with current medications -02/08: Continues to wax and wane, continue behavioral modification, continue Lamictal, patient on Risperdal as well. Considered adding Depakote to current regimen however given this would increase Lamictal levels this could be acutely dangerous this was not added. Did require small doses of Ativan over the past 2 days to help with anxiety and agitation at 5 AM was given 1 mg IV and patient has been very tired since that time, will decrease the as needed doses suspect this is too high and may paradoxically worsen her agitation. Considered adding Depakote sprinkles to regimen however given this can increase Lamictal levels back potentially be dangerous so this was added. #Elevated troponin -Do not suspect ACS, EKG nonspecific changes -Initial troponin was 515, will trend -Order echocardiogram -Given low suspicion for ACS we will hold on starting full dose heparin drip with low threshold to do so and consult cardiology if indicated -02/05: Downtrended, no chest pain, no further intervention #Elevated CPK -CK 971 and patient was down for possibly prolonged period of time and pt also has OLIVER, will obtain UA to assess for myoglobinuria -Trend CK, CMP, -Given 1 L IVF in ED -will continue fluids -We will check mag -Daily weights, I's and O's -02/05: Downtrended with supportive care #Paroxysmal atrial fibrillation -Not on home AC -Continue rate control -Had been in sinus rhythm previously and was following with cardiology who said if she went back into A-fib would need to consider/weigh risks and benefits of resuming systemic anticoagulation -Given recent fall we will need to carefully weigh risks and benefits prior to starting anticoagulation if this is indeed indicated -Heart rate may improve or convert with addressing underlying etiology/dehydration/OLIVER -Did have history of DVT after a boogie boarding accident listed on chart but his not presently on chronic anticoagulation for that -02/05: We will discuss anticoagulation -02/06: Do not feel patient is a good candidate for anticoagulation at this time but this will need to be a continued discussion of risks and benefits -02/07: We will need to explore anticoagulation as above -02/08: Discussed risks and benefits of anticoagulation with POA and at time of d iscussion on 02/07 decision was made to hold on anticoagulation at this time due to fall risk #Fall -Based on patient's description sounds to been mechanical however has difficulty remembering -Shoulder, pelvis, chest x-ray is negative and CT of cervical spine and brain unremarkable for acute process -Does have history of DVT and is not on anticoagulation but patient denies initial loss of consciousness though will need to keep something like PE on the differential -PT/OT -02/05: PT/OT #Hypothyroidism -Continue Synthroid #DVT ppx: Heparin subcu Yamileth Sunshine MD Time spent in the patient's overall evaluation,decision-making process, review of diagnostic data, adjustment of management, discussion with other providers, nursing nursing and ancillary staff involved in patient's care documentation, 40 minutes Charges/Coding Visit Charges Inpatient E&M: 79189 Subs Hosp L3
--- NOTE | 2023-02-08 11:11 | CASEMGMT ---
Patient has a Healthcare Power of Chief Operating Officer and a Healthcare Living Will in her chart at [facility]. Patient's sister Ivy is her Healthcare Power of Chief Operating Officer. Elma Laguerre MSW AGUSTIN
--- NOTE | 2023-02-08 11:39 | CASEMGMT ---
Discharge Planning Referral sent to [facility] via [facility]. Akua Salgado, Discharge Planning Asst.
[2023-02-08 13:32] VITALS: BP 173/95; PULSE 78; RESP 18; TEMP 36.5; O2SAT 99
[2023-02-08] MEDS: Furosemide 20 MG Tablet PO (13:34)
[2023-02-08] MEDS: lamoTRIgine 100 MG Tablet 200 MG PO ×2 (13:34→20:12)
[2023-02-08 13:35] VITALS: PULSE 78
[2023-02-08] MEDS: Metoprolol Tartrate 25 MG Tablet 12.5 MG PO ×2 (13:35→20:11)
[2023-02-08] MEDS: Pantoprazole Sodium 40 MG Tablet PO (13:36)
[2023-02-08] MEDS: Clopidogrel Bisulfate 75 MG Tablet PO (13:36)
[2023-02-08] MEDS: Allopurinol 100 MG Tablet PO (13:37)
--- NOTE | 2023-02-08 17:34 | PN.HOSP_ITS ---
Hospitalist Note Spoke with patient's MILA Haynes regarding acute proximal DVT finding in left lower extremity
--- NOTE | 2023-02-08 17:34 | PCM.HOSP.N ---
Hospitalist Note Spoke with patient's TYShahla Haynes regarding acute proximal DVT finding in left lower extremity. After discussing risks and benefits patient was started on heparin drip, this was started as patient is still very tired from the Ativan and did not want to start something but cannot easily be turned off in the event she tries to get up and is unsteady again. If patient is able to get up and move around with improving ability as medication wears off can switch her to p.o. and if not may need to consider IVC filter
[2023-02-08] MEDS: LORazepam 2 MG/ML Syringe 0.25 MG IV (17:52)
[2023-02-08 18:48] LABS: International Normalized Ratio 1.1; Prothrombin Time (Protime)PT. 13.8 SECONDS (11.7-14.9)
[2023-02-08 18:49] LABS: Partial Thromboplast Time 45.2 Seconds (24.1-36.2)
[2023-02-08] MEDS: Heparin Injection (Vial) 5,000 UNIT/ML VIAL 6000 UNIT IV (19:05)
[2023-02-08] MEDS: HEPARIN/D5w 25,000 UNITS 25,000 UNITS/250 ML IV.SOLN. 12 UNITS CONT INF (19:07)
[2023-02-08] MEDS: 0.9% Saline Lock 10 ML Syringe IV (19:08)
[2023-02-08 19:30] VITALS: BP 157/82; PULSE 87; RESP 16; TEMP 36.4; O2SAT 97
[2023-02-08 20:11] VITALS: BP 157/82; PULSE 89
[2023-02-08] MEDS: RisperiDONE 0.25 MG Tablet PO (20:11)
[2023-02-08] MEDS: MELATONIN 10 MG TABLET PO (20:11)
[2023-02-08] MEDS: Pravastatin 20 MG Tablet PO (20:12)
[2023-02-09] VITALS (8 sets, daily range): BP systolic 132–166; BP diastolic 83–111; PULSE 62–99; RESP 14–18; TEMP 36.2–37; O2SAT 95–100; BMI 30.2
[2023-02-09 01:44] LABS: Partial Thromboplast Time > 200.0 Seconds (24.1-36.2)
[2023-02-09] MEDS: LORazepam 2 MG/ML Syringe 0.25 MG IV (03:42)
[2023-02-09] MEDS: 0.9% Saline Lock 10 ML Syringe IV ×2 (03:45→11:16)
[2023-02-09 07:11] LABS: Anion Gap 8 (5-15); BUN 24 mg/dL (7-18); BUN/Creat Ratio 15.1 RATIO (10-20); Calcium,Total 9.1 mg/dL (8.5-10.1); Chloride 111 mmol/L (98-107); Creatinine, Serum 1.59 mg/dL (0.55-1.02); EST Glomerular Filtration Rate 33 mL/min (>60); Est Glom Filt Rate - Afr Amer 40 mL/min (>60); Estimated Creatinine Clearance 24.12 ml/min; Glucose 102 mg/dL (74-106); Potassium 3.4 mmol/L (3.5-5.1); Sodium Level 144 mmol/L (136-145)
--- NOTE | 2023-02-09 08:40 | PN.HOSP_ITS ---
Reason for Visit Reason for Visit: Diagnoses Hypothyroidism, unspecified (02/04/23) Dehydration (02/04/23) Paroxysmal atrial fibrillation (02/04/23) Acute kidney failure, unspecified (02/04/23) Chronic kidney disease, stage 2 (mild) (02/04/23) Weakness (02/04/23) Other specified abnormalities of plasma proteins (02/04/23) Unspecified fall, initial encounter (02/04/23) Subjective Subjective Patient resting in bed, less tired than yesterday but still sleepy as she got a small dose of Ativan overnight again, following commands, had no acute com plaints Objective Data Objective Data Vital Signs: Vital Signs Temp Pulse Resp BP Pulse Ox O2 Del Method O2 Flow Rate 98 F 84 18 132/87 H 95 Room Air 2 02/09/23 04:19 02/09/23 04:19 02/09/23 04:19 02/09/23 04:19 02/09/23 04:19 02/09/23 04:19 02/07/23 10:51 FiO2 30 02/06/23 19:07 Oxygen Flow Rate (L/min) 2 Oxygen Delivery Method Room Air Weight: 82.5 kg Body Mass Index (BMI) 30.2 Intake & Output: Intake and Output for Last 24 Hours 02/07/23 02/08/23 02/09/23 23:59 23:59 23:59 Intake Total 60 / 60 120 / 120 80.6 / 80.6 Output Total 300 / 300 Balance -240 / -240 120 / 120 80.6 / 80.6 Lab / Micro Data 02/08/23 05:30 02/09/23 05:22 Labs: Laboratory Results - last 24 hr 02/08/23 18:29: PT 13.8, INR 1.1, APTT 45.2 H 02/09/23 01:00: APTT > 200.0 H* 02/09/23 05:22: Sodium 144, Potassium 3.4 L, Chloride 111 H, Carbon Dioxide 25.0, Anion Gap 8, BUN 24 H, Creatinine 1.59 H, Estim Creat Clear Calc 24.12, Est GFR (MDRD) Af Amer 40 L, Est GFR (MDRD) Non-Af 33 L, BUN/Creatinine Ratio 15.1, Glucose 102, Calcium 9.1 Radiography Diagnostic Testing: Radiology Impression Echocardiogram 02/07/23 17:56 Interpretation Summary The estimated ejection fraction is 55 %. Unable to assess diastolic dysfunction. The left atrium is severely enlarged. Small pericardial effusion. Ordering Physician: Yamileth Sunshine Referring Physician: Roni Greer Performed By: Dalila Howard RDCS, RVT Venous Doppler Study 02/07/23 17:56 Interpretation Summary Acute deep vein thrombosis is noted in the left popliteal vein, tibioperoneal trunk vein, soleus vein Ordering Physician: Yamileth Sunshine Performed By: Israel Perez, RVT Physical Exam Narrative General: Resting comfortably HEENT: Normocephalic, Eyes: Eyes eyes open spontaneously Neck: Supple Respiratory: normal respiratory effort, no wheezes or rhonchi Cardiovascular: no edema appreciated GI: nondistended Extremities: Moving all extremities Neuro: No overt focal neurological deficits Psych: Resting comfortably, presently not combative, following commands Assessment & Plan Assessment/Plan (1) Acute kidney injury: (2) Chronic kidney disease (CKD): QUALIFIERS: Chronic kidney disease stage: stage 2 (mild) Qualified Code(s): N18.2 - Chronic kidney disease, stage 2 (mild) (3) Hypothyroidism: QUALIFIERS: Hypothyroidism type: acquired Qualified Code(s): E03.9 - Hypothyroidism, unspecified (4) Atrial fibrillation: QUALIFIERS: Atrial fibrillation type: paroxysmal Qualified Code(s): I48.0 - Paroxysmal atrial fibrillation (5) Elevated troponin: (6) Weakness: (7) Fall: QUALIFIERS: Encounter type: initial encounter Qualified Code(s): W19.XXXA - Unspecified fall, initial encounter (8) Dehydration: PLAN: Plan #Acute DVT in left lower extremity -After discussing risks and benefits patient was started on heparin drip, this was started as patient is still very tired from the Ativan and did not want to start something but cannot easily be turned off in the event she tries to get up and is unsteady again. -Once patient demonstrates that she is able to mobilize without being significant fall risk as medicine wears off can switch to p.o. -Can always consider IVC filter however given [id number] of 8 she is at very high risk of stroke and IVC filter would not alleviate this risk. MILA is her S isZamorano, conversation/discussion/decisions regarding anticoagulation have been discussed with Ivy -If improving tomorrow can switch to p.o. anticoagulation #Acute hypoxia?resolved -Unclear etiology, patient desaturated to 84 to 86% on room air after ambulating and had increased shortness of breath which she had not had previously but recovered on 2 L NC and saturating in high 90s and was otherwise vitally stable -Patient had refused echocardiogram on admission adamantly and due to no shor tness of breath and clinical improvement it was canceled, last echo was in 2020 with an EF of 55% and mild concentric left ventricular hypertrophy and was unable to assess RVSP or diastolic dysfunction -Chest x-ray with increased markings at the lung bases, independent interpretation with concern for some vascular congestion and BNP was 464. Patient's home Lasix had been held due to her kidney injury and being clinically dehydrated however suspect there is some aspect of fluid overload -D-dimer was 2.39, on medication updated by PCPs office med list patient was on Eliquis 5 mg twice daily at home and here has been consistently getting heparin subcu and has been fairly ambulatory however this is elevated beyond what would be expected even if age-adjusted. With kidney function cannot perform CTA and due to her difficulty with cooperation do not think she would be able to participate in VQ scan -Will obtain EKG to assess for right heart strain -We will attempt for lower extremity duplex -If patient amenable/cooperative enough to sit still would benefit from echo -We will discuss with POA about risks and benefits of resuming anticoagulation as she qualifies for AC given her atrial fibrillation anyway but with falls she is at increased risk of bleeding. -02/08: Resolved with diuresis, attempted to get limited echo and lower extremity duplex with the elevated D-dimer however given improvement with diuresis much lower suspicion for PE being primary culprit -02/09: Lower extremity duplex demonstrated DVT, its possible that combination of fluid overload +/- small part of blood clot may have broken off and cause a transient change, patient on heparin drip now #OLIVER on CKD stage IIIb -Baseline creatinine seems to be around 1.2?1.4 and on admission is 1.99 -Likely secondary to dehydration, cannot rule out rhabdomyolysis though presentation not classic for this -Fluids, supportive care -02/05: Creatinine variable, continue supportive care, given no previous lab values since 2021 is possible this is present baseline though FeNa was 0.6 indicating prerenal etiology -02/06: Improving -02/07: Slightly worse today but vacillates within a small window, suspect that this is more likely new baseline -02/08: Improved further -02/09: Waxes and wanes, continue supportive care #Hyperactive delirium -Likely secondary to age in addition to illness and hospitalization -Schedule Risperdal -Home med list updated and patient was on Lamictal, gave 100 mg dose due to increasing agitation and will give another 100 mg this evening as she takes 200 mg twice daily, monitor closely, sitter is able -02/06: More cooperative, still somewhat irritable and suspicious. Discussed with sister who reported that she has slowly had worsening of her memory and was quicker to anger that usually was more appropriate and scenarios prior to now. Counseled on present situation, patient now back to home dose of Lamictal and is on Risperdal. From a medical standpoint feel it is reasonable to pursue placement at this time -02/07: Has been doing better with current medications -02/08: Continues to wax and wane, continue behavioral modification, continue Lamictal, patient on Risperdal as well. Considered adding Depakote to current regimen however given this would increase Lamictal levels this could be acutely dangerous this was not added. Did require small doses of Ativan over the past 2 days to help with anxiety and agitation at 5 AM was given 1 mg IV and patient has been very tired since that time, will decrease the as needed doses suspect this is too high and may paradoxically worsen her agitation. Considered adding Depakote sprinkles to regimen however given this can increase Lamictal levels back potentially be dangerous so this was added. -02/09: Minimize additional sedating agents as able so patient can wake up and participate with therapy and ultimately [facility]. Did obtain CT of the head due to patient still being very tired, no acute bleed or process #Elevated troponin -Do not suspect ACS, EKG nonspecific changes -Initial troponin was 515, will trend -Order echocardiogram -Given low suspicion for ACS we will hold on starting full dose heparin drip wit h low threshold to do so and consult cardiology if indicated -02/05: Downtrended, no chest pain, no further intervention #Elevated CPK?resolved -CK 971 and patient was down for possibly prolonged period of time and pt also has OLIVER, will obtain UA to assess for myoglobinuria -Trend CK, CMP, -Given 1 L IVF in ED -will continue fluids -We will check mag -Daily weights, I's and O's -02/05: Downtrended with supportive care #Paroxysmal atrial fibrillation -Not on home AC -Continue rate control -Had been in sinus rhythm previously and was following with cardiology who said if she went back into A-fib would need to consider/weigh risks and benefits of resuming systemic anticoagulation -Given recent fall we will need to carefully weigh risks and benefits prior to starting anticoagulation if this is indeed indicated -Heart rate may improve or convert with addressing underlying etiology/dehydration/OLIVER -Did have history of DVT after a boogie boarding accident listed on chart but his not presently on chronic anticoagulation for that -02/05: We will discuss anticoagulation -02/06: Do not feel patient is a good candidate for anticoagulation at this time but this will need to be a continued discussion of risks and benefits -02/07: We will need to explore anticoagulation as above -02/08: Discussed risks and benefits of anticoagulation with POA and at time of discussion on 02/07 decision was made to hold on anticoagulation at this time due to fall risk -02/09: CHADS2-VASc of 8 given her age, female, history of hypertension, per cardiology history of CHF, diabetes, history of VTE. Patient high risk for stroke if not on anticoagulation given her present A-fib. Again discussed risks and benefits with MPOA and will move forward at this time with anticoagulation #Fall -Based on patient's description sounds to been mechanical however has difficulty remembering -Shoulder, pelvis, chest x-ray is negative and CT of cervical spine and brain unremarkable for acute process -Does have history of DVT and is not on anticoagulation but patient denies initial loss of consciousness though will need to keep something like PE on the differential -PT/OT -02/05: PT/OT -02/09: Patient still very tired after getting a repeat but much smaller dose of Ativan, minimize sedating. Medications to allow patient to wake up and participate in physical therapy and move towards discharge #Hypothyroidism -Continue Synthroid #DVT ppx: Heparin gtt Yamileth Sunshine MD Time spent in the patient's overall evaluation,decision-making process, review of diagnostic data, adjustment of management, discussion with other providers, nursing nursing and ancillary staff involved in patient's care documentation, 57 minutes Charges/Coding Visit Charges Inpatient E&M: 37765 Subs Hosp L3
[2023-02-09] MEDS: RisperiDONE 0.25 MG Tablet PO ×2 (09:51→21:47)
[2023-02-09] MEDS: Metoprolol Tartrate 25 MG Tablet 12.5 MG PO ×2 (09:51→21:44)
[2023-02-09] MEDS: Clopidogrel Bisulfate 75 MG Tablet PO (09:52)
[2023-02-09] MEDS: Pantoprazole Sodium 40 MG Tablet PO (09:52)
[2023-02-09] MEDS: Allopurinol 100 MG Tablet PO (09:52)
[2023-02-09] MEDS: lamoTRIgine 100 MG Tablet 200 MG PO ×2 (09:52→21:43)
[2023-02-09] MEDS: Furosemide 20 MG Tablet PO (09:52)
[2023-02-09] MEDS: Potassium Chloride Oral Soln 20 MEQ/15 ML UDC PO (10:00)
[2023-02-09 10:31] LABS: Partial Thromboplast Time > 200.0 Seconds (24.1-36.2)
--- NOTE | 2023-02-09 10:55 | CT_ITS ---
STUDY: CT BRAIN WITHOUT CONTRAST REASON FOR EXAM: Female, 82 years old. Headache, altered mental status RADIATION DOSAGE (If Supplied By Facility): CTDIvol = ( 44.99 ) mGy, DLP = ( 846.73 ) mGycm TECHNIQUE: Transaxial CT imaging of the brain was performed without administration of intravenous contrast material. Individualized dose optimization techniques were used for this CT. COMPARISON: 02/04/2023 FINDINGS: Normal soft tissue structures. Normal calvarium. There is moderate cerebral atrophy with widening of the extra-axial spaces and ventricular dilatation. There are areas of decreased attenuation within the white matter tracts of the supratentorial brain, consistent with microvascular disease changes. Normal basal ganglia and thalami. Normal brainstem. There is mild cerebellar atrophy. There is no intracranial hemorrhage. There are no findings of an acute ischemic infarction. Normal visualized paranasal sinuses. CT/Brain/Head without Contrast IMPRESSION: Chronic involutional changes of the brain. No acute hemorrhage or significant interval change Electronically Signed: Danny Rubio MD at 11:58 EDT ,
--- NOTE | 2023-02-09 11:44 | CASEMGMT ---
PATRICK received a phone call from patient's sister Ivy. Ivy asked if there were any updates. PATRICK let Ivy know that we are waiting on insurance to approve patient. PATRICK told Ivy we are hoping to hear today. Ivy asked about paperwork and PATRICK told her there would be no paperwork for her to complete at [facility], but there would be admission paperwork at [facility]. PATRICK suggested Ivy call [facility] and ask about completing paperwork ahead of time. Plan: [facility] pending insurance approval. Elma Laguerre MINI BAR ATTENDANT AGUSTIN
[2023-02-09] MEDS: Lactated Ringers 250 ML 999 ML IV (12:01)
[2023-02-09] MEDS: HEPARIN/D5w 25,000 UNITS 25,000 UNITS/250 ML IV.SOLN. 6 UNITS CONT INF (15:18)
[2023-02-09 19:19] LABS: Partial Thromboplast Time 154.5 Seconds (24.1-36.2)
[2023-02-09] MEDS: Pravastatin 20 MG Tablet PO (21:44)
[2023-02-09] MEDS: MELATONIN 10 MG TABLET PO (21:47)
[2023-02-10] VITALS (7 sets, daily range): BP systolic 135–174; BP diastolic 71–155; PULSE 68–99; RESP 16–18; TEMP 36.6–36.8; O2SAT 95–100; BMI 29.7
[2023-02-10 04:14] LABS: Partial Thromboplast Time 60.4 Seconds (24.1-36.2)
[2023-02-10] MEDS: Levothyroxine 25 MCG TABLET PO (05:21)
[2023-02-10] MEDS: Acetaminophen 325 MG Tablet 650 MG PO (05:23)
[2023-02-10] MEDS: RisperiDONE 0.25 MG Tablet PO (09:00)
[2023-02-10] MEDS: Allopurinol 100 MG Tablet PO (09:00)
[2023-02-10] MEDS: lamoTRIgine 100 MG Tablet 200 MG PO ×2 (09:01→21:12)
[2023-02-10] MEDS: Metoprolol Tartrate 25 MG Tablet 12.5 MG PO ×2 (09:01→21:12)
[2023-02-10] MEDS: Pantoprazole Sodium 40 MG Tablet PO (09:01)
[2023-02-10] MEDS: Clopidogrel Bisulfate 75 MG Tablet PO (09:01)
[2023-02-10 10:56] LABS: Partial Thromboplast Time 44.1 Seconds (24.1-36.2)
[2023-02-10] MEDS: Heparin Injection (Vial) 5,000 UNIT/ML VIAL IV (11:09)
[2023-02-10] MEDS: HEPARIN/D5w 25,000 UNITS 25,000 UNITS/250 ML IV.SOLN. 4 UNITS CONT INF (11:13)
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
[2023-02-10] MEDS: Enoxaparin 80 MG/0.8 ML Syringe SC (17:56)
[2023-02-10] MEDS: MELATONIN 10 MG TABLET PO (21:13)
[2023-02-10] MEDS: Pravastatin 20 MG Tablet PO (21:13)
[2023-02-11 03:20] VITALS: BP 160/88; PULSE 87; RESP 18; TEMP 36.6; O2SAT 96
[2023-02-11 03:58] VITALS: BMI 29.4
[2023-02-11 06:35] LABS: Absolute Lymphocyte Count 0.98 X10^3/uL (0.83-4.51); Absolute Neutrophil Count 4.6 X10^3/uL (2.0-7.7); Basophil# 0.11 X10^3/uL; Basophil% 1.7 % (0-1); Eosinophil# 0.15 X10^3/uL; Eosinophils% 2.4 % (0-5); Hematocrit 37.7 % (37-47); Lymphocyte # 0.98 X10^3/ul (0.83-4.51); Lymphocyte % 15.4 % (19-41); Mean Corp Hgb Conc 31.8 g/dL (32-36); Mean Corpuscular Hgb 30.5 pg (27.0-32.0); Mean Corpuscular Volume 95.9 fL (81-99); Mean Platelet Vol. 10.1 fl (6.2-12.0); Monocyte# 0.47 X10^3/uL; Monocyte% 7.4 % (0-10); NRBC Flagged by Analyzer 0 % (0-5); Neutrophil # 4.61 X10^3/uL (2.7-7.7); Neutrophil % 72.3 % (47-70); Platelet Count 223 K/mm3 (150-450); RBC Distribution Width CV 14.1 % (11.6-14.6); RBC Distribution Width SD 49.4 fl (35.1-43.9); Red Blood Count 3.93 M/mm3 (4.2-5.4); White Blood Count 6.4 K/mm3 (4.4-11.0)
[2023-02-11 07:24] LABS: Anion Gap 10 (5-15); BUN 29 mg/dL (7-18); BUN/Creat Ratio 16.1 RATIO (10-20); Calcium,Total 9.2 mg/dL (8.5-10.1); Chloride 113 mmol/L (98-107); EST Glomerular Filtration Rate 29 mL/min (>60); Est Glom Filt Rate - Afr Amer 35 mL/min (>60); Estimated Creatinine Clearance 21.31 ml/min; Glucose 114 mg/dL (74-106); Potassium 3.3 mmol/L (3.5-5.1); Sodium Level 144 mmol/L (136-145)
[2023-02-11 08:22] VITALS: BP 145/84; PULSE 78; RESP 16; TEMP 36.2; O2SAT 95
[2023-02-11 08:28] VITALS: O2SAT 95
[2023-02-11] MEDS: KCL 20MEQ in D5.45NS 20 MEQ/1,000 ML IV.SOLN. 50 MEQ IV (12:27)
[2023-02-11] MEDS: Potassium Chloride Oral Tablet 20 MEQ 40 MEQ PO (12:29)
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
[2023-02-11 13:59] LABS: Magnesium 1.7 mg/dL (1.6-2.6); Phosphorus 3.5 mg/dL (2.5-4.9)
[2023-02-11 14:10] VITALS: BP 155/101; PULSE 97; RESP 18; TEMP 36.4; O2SAT 95
[2023-02-11] MEDS: Enoxaparin 80 MG/0.8 ML Syringe SC (18:29)
[2023-02-11 20:10] VITALS: BP 144/80; PULSE 91; RESP 16; TEMP 36.6; O2SAT 98
[2023-02-12] VITALS (8 sets, daily range): BP systolic 108–136; BP diastolic 63–76; PULSE 75–91; RESP 12–18; TEMP 36.4–36.9; O2SAT 94–100; BMI 29.4
[2023-02-12] MEDS: KCL 20MEQ in D5.45NS 20 MEQ/1,000 ML IV.SOLN. 50 MEQ IV (02:41)
[2023-02-12 06:29] LABS: Absolute Neutrophil Count 5.3 X10^3/uL (2.0-7.7); Basophil# 0.11 X10^3/uL; Basophil% 1.5 % (0-1); Eosinophil# 0.21 X10^3/uL; Eosinophils% 2.9 % (0-5); Hematocrit 37.3 % (37-47); Hemoglobin 11.6 g/dL (12.0-15.0); Lymphocyte % 15.3 % (19-41); Mean Corp Hgb Conc 31.1 g/dL (32-36); Mean Corpuscular Volume 96.4 fL (81-99); Mean Platelet Vol. 10.3 fl (6.2-12.0); Monocyte% 6.9 % (0-10); NRBC Flagged by Analyzer 0 % (0-5); Neutrophil # 5.27 X10^3/uL (2.7-7.7); Neutrophil % 73.1 % (47-70); Platelet Count 244 K/mm3 (150-450); RBC Distribution Width CV 14.4 % (11.6-14.6); RBC Distribution Width SD 50.2 fl (35.1-43.9); Red Blood Count 3.87 M/mm3 (4.2-5.4); White Blood Count 7.2 K/mm3 (4.4-11.0)
[2023-02-12 06:58] LABS: Anion Gap 8 (5-15); BUN 29 mg/dL (7-18); BUN/Creat Ratio 17.1 RATIO (10-20); Calcium,Total 9.2 mg/dL (8.5-10.1); Chloride 117 mmol/L (98-107); EST Glomerular Filtration Rate 30 mL/min (>60); Est Glom Filt Rate - Afr Amer 37 mL/min (>60); Estimated Creatinine Clearance 22.56 ml/min; Glucose 128 mg/dL (74-106); Potassium 3.4 mmol/L (3.5-5.1); Sodium Level 147 mmol/L (136-145)
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
[2023-02-12] MEDS: lamoTRIgine 100 MG Tablet 200 MG PO (09:30)
[2023-02-12] MEDS: RisperiDONE 0.25 MG Tablet PO (09:30)
[2023-02-12] MEDS: Clopidogrel Bisulfate 75 MG Tablet PO (09:30)
[2023-02-12] MEDS: Pantoprazole Sodium 40 MG Tablet PO (09:30)
[2023-02-12] MEDS: Metoprolol Tartrate 25 MG Tablet 12.5 MG PO (09:31)
[2023-02-12] MEDS: Allopurinol 100 MG Tablet PO (09:32)
--- NOTE | 2023-02-12 09:54 | CASEMGMT ---
Discharge Planning Updates sent to [facility] Akua Salgado, Discharge Planning Asst.
--- NOTE | 2023-02-12 11:40 | CASEMGMT ---
Patient was approved for [facility]. Patient is getting a Modified Barium Swallow today. SW asked Clara how long the pre-cert is good. Await response. Elma Laguerre FARMWORKER GENERAL AGUSTIN
--- NOTE | 2023-02-12 12:35 | CASEMGMT ---
Patient's pre-cert expires SunFebruary 14 at midnight. Elma Laguerre ASSIGNMENT EDITOR AGUSTIN
--- NOTE | 2023-02-12 15:06 | RAD_ITS ---
STUDY: X-RAY CHEST REASON FOR EXAM: Female, 82 years old. Sob TECHNIQUE: Single AP portable view of the chest. COMPARISON: Comparison is made with prior study dated February 07, 2023. FINDINGS: The previously seen bibasilar infiltrates have almost completely resolved. Mild residual changes are seen at the left lung base with residual blunting of the left costophrenic angle. Normal size heart. Normal mediastinum and blanka. Normal visualized pulmonary arteries. There is atherosclerotic calcification of the aortic arch with tortuosity. Normal visualized thoracic spine. There is degenerative osteoarthritis of the bilateral shoulders. There is no demonstrated abnormality of the visualized soft tissue structures of the upper abdomen. RAD/Chest 1 View (Portable) IMPRESSION: Mild residual change at the left lung base. The previously seen right lower lobe atelectasis and/or infiltrate has cleared. Electronically Signed: Carlos Weeks MD at 15:42 EDT ,
[2023-02-12 15:18] LABS: Allen Test Positive; Base Excess -1 mmol/L (-2 to +2); Blood Gas Specimen Type ART; O2 Delivery Device Room Air; PO2 75 mmHG (75-100); SITE L Radial; SO2 95 % (95-99); Total Carbon Dioxide 24 mmol/L; pCO2 34.8 mmHg (35-45); pH 7.43 (7.35-7.45)
[2023-02-12] MEDS: Enoxaparin 80 MG/0.8 ML Syringe SC (19:06)
[2023-02-13] VITALS (8 sets, daily range): BP systolic 150–162; BP diastolic 63–79; PULSE 75–113; RESP 16–18; TEMP 36.2–36.9; O2SAT 91–98; BMI 29.2
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
--- NOTE | 2023-02-13 14:24 | PCM.CONS.R ---
Assessment & Plan Assessment/Plan (1) Acute kidney injury: (2) Chronic kidney disease (CKD): QUALIFIERS: Chronic kidney disease stage: stage 2 (mild) Qualified Code(s): N18.2 - Chronic kidney disease, stage 2 (mild) (3) Fall: QUALIFIERS: Encounter type: initial encounter Qualified Code(s): W19.XXXA - Unspecified fall, initial encounter PLAN: Plan This is 82-year-old female with past medical significant for hypothyroidism, diabetes mellitus type 2, A-fib, hypertension, chronic systolic heart failure presenting to emergency room after fall at home admitted to the hospital for further evaluation and treatment. Nephrology consulted for acute kidney injury. Patient is off floor for modified barium swallow and is possible discharge to home today. Discussed with Dr. Oleary. In reviewing past creatinine trends, patient has had mild elevated serum creatinine dating back to at least 2014. On June 03, 2020 serum creatinine 1.36, 04/26/2022 serum creatinine 1.48, 02/04/2023 creatinine 1.99--> 02/08/2023 creatinine 1.51 and on February 12 creatinine 1.70 mg/dL. No labs for today. Urine on admission showed 30 protein, no RBC, occult blood 25. CK 971 on admission, last checked on February 04 and improved to 858. Patient has been on IV fluids. Likely fluctuation in serum creatinine from hemodynamics. Blood pressures have been acceptable last few days. Will arrange for hospital follow up and recommend off diuretics, NSAIDs for now. She is also off Metformin. HPI Consult Data Date of Consult: 02/14/23 HPI Narrative HPI Narrative: NOEMY FITZGERALD, is a 82 F with past medical significant for hypothyroidism, A-fib, hypertension, chronic systolic heart failure who presented to emergency room on February 04 after a fall. Work-up in the emergency room included brain CT which did not show any acute process, cervical spine CT with no acute process, shoulder and pelvic x-ray with no acute process and chest x-ray which was clear. Lab work in the emergency room showed creatinine of 1.99, elevated troponin of 515, CK of 971. Patient was started on IV fluids admitted for further evaluation and treatment. Nephrology consulted for OLIVER. [facility] Medical History Abnormal stress test Anemia Arthritis Atrial fibrillation with RVR (12/03/14) Bray angioma Chronic kidney disease (CKD) Chronic systolic (congestive) heart failure Debility Dependent edema Eczema Edema Hemorrhoids History of DVT (deep vein thrombosis) History of non-ST elevation myocardial infarction (NSTEMI) (12/03/14) HLD (hyperlipidemia) Hyperpigmentation Hypomagnesemia Hypothyroidism Inactivity Leg edema Leg swelling Non-ischemic cardiomyopathy Obesity Osteoporosis Osteoporosis Postoperative atrial fibrillation (12/03/14) Postphlebitic syndrome with inflammation Rosacea Syncope Weight loss, abnormal Home Medications docusate sodium 100 mg capsule 100 mg PO DAILY stool softener #90 caps 10/25/17 [Rx Last Taken Unknown] levothyroxine 25 mcg tablet 25 mcg PO DAILY thyroid #90 tabs 01/04/22 [Rx Last Taken Unknown] allopurinol 100 mg tablet 100 mg PO DAILY afib #90 tabs 06/26/22 [Rx Last Taken Unknown] oxybutynin chloride 10 mg tablet,extended release 24 hr 10 mg PO DAILY overactive bladder #30 tabs 07/04/22 [Rx Last Taken Unknown] calcium carbonate 600 mg calcium (1,500 mg) tablet (Calcium) 600 mg PO DAILY supplement #90 tabs 09/27/22 [Rx Last Taken Unknown] phentermine 37.5 mg tablet (Adipex-P) 37.5 mg PO DAILY weight loss #30 tabs 01/16/23 [Rx Last Taken Unknown] potassium chloride 10 mEq tablet,extended release 10 meq PO BID supplement #180 tabs 01/16/23 [Rx Last Taken Unknown] apixaban 5 mg tablet 5 mg PO BID thinner 02/05/23 [History Last Taken Unknown] atorvastatin 80 mg tablet 80 mg PO QHS cholesterol 02/05/23 [History Last Taken Unknown] clopidogrel 75 mg tablet (Plavix) 75 mg PO DAILY platelets 02/05/23 [History Last Taken Unknown] dapagliflozin propanediol 10 mg tablet (Farxiga) 10 mg PO DAILY Diabetes 02/05/23 [History Last Taken Unknown] finasteride 5 mg tablet 5 mg PO DAILY urination 02/05/23 [History Last Taken Unknown] isosorbide mononitrate 60 mg tablet,extended release 24 hr 60 mg PO DAILY bp 02/05/23 [History Last Taken Unknown] lamotrigine 200 mg tablet (Lamictal) 200 mg PO BID anti seizure 02/05/23 [History Last Taken Unknown] magnesium oxide 400 mg (241.3 mg magnesium) tablet 400 mg PO DAILY supplement 02/05/23 [History Last Taken Unknown] metformin 500 mg tablet 500 mg PO BID dm 02/05/23 [History Last Taken Unknown] pantoprazole 40 mg tablet,delayed release (Protonix) 40 mg PO DAILY Gerd 02/05/23 [History Last Taken Unknown] semaglutide 0.25 mg or 0.5 mg (2 mg/3 mL) subcutaneous pen injector 0.25 mg subcut QWEEK inject 02/05/23 [History Last Taken Unknown] tamsulosin 0.4 mg capsule (Flomax) 0.8 mg PO DAILY urination 02/05/23 [History Last Taken Unknown] metoprolol tartrate 25 mg tablet 25 mg PO BID #0 tabs 02/13/23 [Rx Last Taken Unknown] sennosides 8.6 mg-docusate sodium 50 mg tablet (Stool Softener-Stimulant Laxative) 2 tab PO BID PRN PRN Constipation #0 tabs 02/13/23 [Rx Last Taken Unknown] Allergy/AdvReac Type Severity Reaction Status Date / Time fluoxetine HCl [From Prozac] Allergy Unknown Verified 02/04/23 10:41 Family History Mother Hypertension Heart disease Colon cancer Surgical History History of knee replacement History of vein stripping Social History Smoking Status: Former smoker how long ago did patient quit smokin alcohol intake: current alcohol intake frequency: holidays/special occasions only substance use type: does not use what type of physical activity do you participate in: aerobics and weight training frequency: 3-4 times per week Medical Records Data Medical Nutrition Assessment Dietitian: Malnutrition Criteria Met Start: 02/12/23 16:21 Freq: Status: Active Protocol: Document 02/12/23 16:22 RMA (Rec: 02/12/23 16:22 RMA [id number]) Nutrition Malnutrition Evidence of Malnutrition Exists Yes Malnutrition (severe): Acute Illness/Injury Evidenced By Suboptimal Energy Intake ( Severe),Weight Loss (Severe) Intake Problem Inadequate Oral Intake Etiology related to difficulty swallowing Signs/Symptoms as evidenced by NPO/MBS and weight loss~3% x 1 week Status Active Problem Clinical Problem Acute Disease or Injury Related Malnutrition Etiology Severe protein-calorie malnutrition in the context of acute disease related to inadequate oral intake and difficulty swallowing Signs/Symptoms as evidenced by NPO, weight loss~3% x 1 week and taking less than 50% meals Status Active Problem Recommendation Dietitian Recommendations/Changes Recommend liberalized regular diet as tolerated with consistency/texture as per BEER BREWER . Enteral nutrition support if PO diet is contraindicated after MBS. Offer ensure plus high protein PO as able for repletion if able to take PO. Optimize PO to prevent further weight loss with ONS as able. Lab / Micro Data 02/12/23 05:50 02/14/23 05:59 ABG Data ABG results: ABG 02/12/23 15:13 Specimen Type ART Sample Site L Radial pH 7.43 Bicarbonate Actual 23.0 Total CO2 24 Base Excess -1 O2 Saturation 95 ABG pCO2 34.8 L ABG pO2 75 Jarrett Test Positive O2 Delivery Device Room Air Radiology Impression Chest X-Ray 02/12/23 15:06 IMPRESSION: Mild residual change at the left lung base. The previously seen right lower lobe atelectasis and/or infiltrate has cleared. Electronically Signed: Carlos Weeks MD at 15:42 EDT ,
--- NOTE | 2023-02-13 14:51 | CASEMGMT ---
PATRICK checked with Clara at [facility] and patient's pre-cert is good through tomorrow. PATRICK let physician know and he plans on discharging patient tomorrow. PATRICK let Clara at [facility] know this information. PATRICK called patient's sister Ivy and let her know patient will be going to [facility] tomorrow. Elma Laguerre PROFESSOR OF BIBLICAL STUDIES AGUSTIN
--- NOTE | 2023-02-13 15:14 | SP.MBSS_ITS ---
Modified Barium Swallow Patient Information Study Date: 02/13/23 Study Time: 14:00 Direct Billable Minutes: 185 Total Minutes procedure & reportin Diagnosis: Dysphagia (R13.12) Referring Physician: Andriy Oleary Reason for Referral: Objectively assess swallow function, risk for aspiration and to determine recommendations for LRD and compensatory strategies to improve safety of swallow. Medical History: Soniya Pastrana is a 82yo F with history of A-fib, possible DVT in the past, CKD stage IIIb, hypothyroidism presented to [facility] 02/04/2023 after being found down at home by her son for an uncertain amount of time. Since admission on 02/04/2023 - patient has had significant cognitive decline as initially she was alert and oriented when admitted. Patient has diagnosis of acute encephalopathy with hyperactive delirium probably due to polypharmacy and lorazepam. Patient participated in Bedside Swallow Evaluation on 02/10/23 w/ recommendations for NPO d/t poor alertness and showing overt signs of aspiration w/ water trials. Patient was scheduled for MBSS yesterday 02/12/23 however patient had low arousal and could not participate. Current Diet Ordered: NPO, medications ok in applesauce Mental Status: Impaired Comment: Fluctuating alertness w/ significant cognitive impairment. Unable to follow verbal or visual commands during MBSS. Respiratory Status: Oxygenating on Room Air Penetration-Aspiration Scale Penetration-Aspiration Scale: OBJECTIVE ASSESSMENT OF SWALLOW FUNCTION (QUANTITATIVE ? PER TRIAL): PENETRATION / ASPIRATION SCALE (CHAVES): 1 = does not enter airway 2 = enters airway/above vocal folds/ejected 3 = enters airway/above vocal folds/not ejected 4 = enters airway/contacts vocal folds/ejected 5 = enters airway/contacts vocal folds/not ejected 6 = enters airway/below vocal folds/ejected 7 = enters airway/below vocal folds/not ejected despite effort 8 = enters airway/below vocal folds/no effort VIDEOFLOROSCOPIC SCALE SCORE (CHAVES): Grade I = aspiration of material that has penetrated into the laryngeal vestibule, intact cough reflex Grade II = aspiration < 10 % of the bolus, intact cough reflex Grade III = aspiration of < 10 % of the bolus, reduced cough reflex or aspiration of > 10 % of the bolus, intact cough reflex Grade IV = aspiration of > 10 % of the bolus, reduced cough reflex Penetration-Aspiration Scale Score Thin Liquid via teaspoon: Result: 1= does not enter airway Thin Liquid via teaspoon Trial 2: Result: 1= does not enter airway Thin Liquid via cup: Result: 5= enters airways/contacts vocal folds/not ejected Thin Liquid via cup Trial 2: Result: 5= enters airways/contacts vocal folds/not ejected Thin Liquid via straw: Result: 5= enters airways/contacts vocal folds/not ejected [place] Thick Liquid via cup: Result: 5= enters airways/contacts vocal folds/not ejected Honey Thick Liquids via cup: Result: 1= does not enter airway Pudding via teaspoon: Result: 1= does not enter airway [place] Thick Liquid via cup Trial 2: Result: 5= enters airways/contacts vocal folds/not ejected Thin Liquid via teaspoon Trial 3: Result: 1= does not enter airway Honey Thick Liquid via teaspoon: Result: 1= does not enter airway Cookie: Result: 1= does not enter airway Comment: Highly suspect aspiration of previous trials that remained in the airway that were not ejected d/t reflexive cough response [place] Thick Liquid via teaspoon: Result: 1= does not enter airway [place] Thick Liquid via teaspoon Trial 2: Result: 1= does not enter airway Thin Liquid via teaspoon Trial 4: Result: 1= does not enter airway Thin Liquid via teaspoon Trial 5: Result: 1= does not enter airway Oral Phase Labial Seal: Escape beyond mid-chin Tongue Control During Bolus Hold: Posterior escape of greater than half of bolus Bolus Preparation/Mastication: Minimal chewing/mashing with majority of bolus unchewed Bolus Transport/Lingual Motion: Repetitive/disorganized tongue motion Oral Residue: Residue collection on oral structures Pharyngeal Phase Initiation of Pharyngeal Swallow: Bolus head in pyriforms Soft Palate Elevation: Trace column of contrast/air between soft palate and pharyngeal wall Laryngeal Elevation: Partial superior movement thyroid cart/partial apprx aryt- epig petiole Anterior Hyoid Excursion: Partial anterior movement Epiglottic Movement: Partial inversion Laryngeal Vestibule Closure at Height of Swallow: Incomplete; narrow column of air/contrast in laryngeal vestibule Pharyngeal Stripping Wave: Present - complete Pharyngoesophageal Segment Opening: Complete distension and complete duration; no obstruction of flow Tongue Base Retraction: Wide column of contrast between tongue base & post. pharyngeal wall Pharyngeal Residue: Collection of residue within or on pharyngeal structures Esophageal Phase Esophageal Clearance: Complete clearance Diagnosis/Impression Diagnosis: moderate oropharyngeal dysphagia (R13.12) Impression: Patient presents w/ moderate oropharyngeal dysphagia. Oral phase primarily marked by... - impaired labial seal w/ anterior spillage. - poor bolus control w/ posterior spillage of >1/2 of the bolus to the vallecula and pyriforms prior to swallow onset. - severe mastication insufficiency w/ minimal chewing and majority of cookie un- chewed. FRESCO ARTIST had to remove cookie from oral cavity d/t inability to masticate. - significant oral residue post deglutition w/ all consistencies. Pharyngeal phase primarily marked by... - reduced closure of the airway during deglutition attributed to reduced laryngeal elevation and reduced anterior hyoid excursion. - poor pharyngeal motility attributed to reduced TB retraction resulting in pharyngeal residue in the vallecula and pyriforms. Increased pharyngeal residues w/ thicker viscosities. - highly suspect post prandial aspiration of pharyngeal residues. Patient is at high risk for post prandial aspiration from residues remaining in the vallecula and pyriforms post deglutition. Patient was unable to follow commands to complete additional dry swallow to clear residues. When patient independently completed additional swallow, pharyngeal residue did somewhat decrease. - penetration to the vocal cords that was not ejected observed w/ thin via cup, thin via straw and nectar thick liquids via cup. Patient was unable to follow commands to cough and re-swallow to clear the penetration. - highly suspect aspiration of previous trials that remained in the airway that were not ejected d/t reflexive cough response following cookie trial. - cannot rule out aspiration during the study d/t patient's body habitus. FRESCO ARTIST is recommending diet of moist purees and thin liquids via tsp only w/ 1:1 supervision to use compensatory strategies. It is very important to note that patient is at high risk for penetration/aspiration w/ PO intake d/t oropharyngeal dysphagia along w/ fluctuating alertness and severely impaired cognition. Patient should not have any food/drink by mouth if she is not fully alert. Recommendations Diet: Puree Textures (Moist Purees) and Thin Liquids (by tsp only) Compensatory Strategies: Small Sips, No Straws, Liquid by Teaspoon Only, Slow Rate, Feed only when alert, Multiple Swallows, Alternate bites/solids and sips/liquids and Sitting upright Supervision: Total Feed and 1:1 Close Supervision Recommend Repeat Modified Barium Swallow: Yes Comment: Patient would benefit from repeat MBSS in 4-6 weeks. Need for Skilled Speech Therapy Services: Yes Comment: Patient will need continued dysphagia therapy at next level of care to address m oderate deficits in oropharyngeal swallow function. Would consider the patient for oropharyngeal strengthening exercises to improve deficits identified above. The patient, family and nursing staff would benefit from thorough education regarding diet recommendations and recommended compensatory strategies. Education Completed: 1. Described result of evaluation. Status Active ST Patient: Active Contact Information [facility] Speech Therapy:: Agnieszka Connelly M.A. CCC-FRESCO ARTIST Speech-Language Pathologist [facility] [address] [place] [address] [email or web address] [phone]
--- NOTE | 2023-02-13 15:30 | PHA.DC.MR.R ---
Pharmacy [place] Med Reconciliation Pharmacy Service has performed discharge medication reconciliation for this patient upon transfer to [facility]. Medications reviewed by Gurpreet Lake PharmD Candidate The patient's discharge medication list was reviewed for discrepancies and discrepancies were resolved. Medications at Discharge Home Medications docusate sodium 100 mg capsule 100 mg PO DAILY stool softener #90 caps 10/25/17 levothyroxine 25 mcg tablet 25 mcg PO DAILY thyroid #90 tabs 01/04/22 allopurinol 100 mg tablet 100 mg PO DAILY afib #90 tabs 06/26/22 oxybutynin chloride 10 mg tablet,extended release 24 hr 10 mg PO DAILY overactive bladder #30 tabs 07/04/22 calcium carbonate 600 mg calcium (1,500 mg) tablet (Calcium) 600 mg PO DAILY supplement #90 tabs 09/27/22 phentermine 37.5 mg tablet (Adipex-P) 37.5 mg PO DAILY weight loss #30 tabs 01/16/23 potassium chloride 10 mEq tablet,extended release 10 meq PO BID supplement #180 tabs 01/16/23 apixaban 5 mg tablet 5 mg PO BID thinner 02/05/23 atorvastatin 80 mg tablet 80 mg PO QHS cholesterol 02/05/23 clopidogrel 75 mg tablet (Plavix) 75 mg PO DAILY platelets 02/05/23 dapagliflozin propanediol 10 mg tablet (Farxiga) 10 mg PO DAILY Diabetes 02/05/23 finasteride 5 mg tablet 5 mg PO DAILY urination 02/05/23 isosorbide mononitrate 60 mg tablet,extended release 24 hr 60 mg PO DAILY bp 02/05/23 lamotrigine 200 mg tablet (Lamictal) 200 mg PO BID anti seizure 02/05/23 magnesium oxide 400 mg (241.3 mg magnesium) tablet 400 mg PO DAILY supplement 02/05/23 metformin 500 mg tablet 500 mg PO BID dm 02/05/23 pantoprazole 40 mg tablet,delayed release (Protonix) 40 mg PO DAILY Gerd 02/05/23 semaglutide 0.25 mg or 0.5 mg (2 mg/3 mL) subcutaneous pen injector 0.25 mg subcut QWEEK inject 02/05/23 tamsulosin 0.4 mg capsule (Flomax) 0.8 mg PO DAILY urination 02/05/23 metoprolol tartrate 25 mg tablet 25 mg PO BID #0 tabs 02/13/23 sennosides 8.6 mg-docusate sodium 50 mg tablet (Stool Softener-Stimulant Laxative) 2 tab PO BID PRN PRN Constipation #0 tabs 02/13/23
[2023-02-13 15:41] LABS: Anion Gap 7 (5-15); BUN 33 mg/dL (7-18); BUN/Creat Ratio 17.7 RATIO (10-20); Calcium,Total 9.3 mg/dL (8.5-10.1); Chloride 116 mmol/L (98-107); Creatinine, Serum 1.86 mg/dL (0.55-1.02); EST Glomerular Filtration Rate 27 mL/min (>60); Est Glom Filt Rate - Afr Amer 33 mL/min (>60); Estimated Creatinine Clearance 20.62 ml/min; Glucose 143 mg/dL (74-106); Potassium 4.1 mmol/L (3.5-5.1); Sodium Level 143 mmol/L (136-145)
[2023-02-13 15:45] LABS: CPK Total, Creatine Kinase 390 U/L (26-192)
[2023-02-13] MEDS: Enoxaparin 80 MG/0.8 ML Syringe SC (18:30)
[2023-02-13] MEDS: lamoTRIgine 100 MG Tablet 200 MG PO (22:08)
[2023-02-13] MEDS: MELATONIN 10 MG TABLET PO (22:08)
[2023-02-13] MEDS: Metoprolol Tartrate 25 MG Tablet 12.5 MG PO (22:08)
[2023-02-13] MEDS: Pravastatin 20 MG Tablet PO (22:09)
[2023-02-14 06:00] VITALS: BMI 32.5
[2023-02-14 06:27] VITALS: BP 130/63; PULSE 83; RESP 18; TEMP 35.8; O2SAT 99
[2023-02-14] MEDS: Levothyroxine 25 MCG TABLET PO (06:28)
[2023-02-14 06:36] LABS: Anion Gap 6 (5-15); BUN 29 mg/dL (7-18); BUN/Creat Ratio 17.9 RATIO (10-20); Calcium,Total 8.7 mg/dL (8.5-10.1); Chloride 113 mmol/L (98-107); Creatinine, Serum 1.62 mg/dL (0.55-1.02); EST Glomerular Filtration Rate 32 mL/min (>60); Est Glom Filt Rate - Afr Amer 39 mL/min (>60); Estimated Creatinine Clearance 23.68 ml/min; Glucose 132 mg/dL (74-106); Potassium 3.8 mmol/L (3.5-5.1); Sodium Level 142 mmol/L (136-145)
--- NOTE | 2023-02-14 09:37 | CASEMGMT ---
PATRICK sent patient's Modified Barium Swallow study to [facility] via [facility]. PATRICK also let Clara know patient will be coming today. Elma Laguerre DEGREASER AGUSTIN
[2023-02-14 09:45] VITALS: BP 104/59; PULSE 85; RESP 18; TEMP 36.6; O2SAT 98
[2023-02-14 09:53] VITALS: BP 104/59; PULSE 85
[2023-02-14] MEDS: Metoprolol Tartrate 25 MG Tablet 12.5 MG PO (09:53)
[2023-02-14] MEDS: Allopurinol 100 MG Tablet PO (09:53)
[2023-02-14] MEDS: lamoTRIgine 100 MG Tablet 200 MG PO (09:53)
[2023-02-14] MEDS: Pantoprazole Sodium 40 MG Tablet PO (09:53)
[2023-02-14] MEDS: Clopidogrel Bisulfate 75 MG Tablet PO (09:53)
--- NOTE | 2023-02-14 09:59 | TREXTCAR_ITS ---
Diet Diet Order/Speech Therapy: 02/13/23 16:39 Diet: Regular - General Food consistency:: Pureed Liquid Consistency:: Regular/Thin Is pt able to select menu?: Yes Diet Comments: MOIST PUREES/THIN BY TSP ONLY, TOTAL FEED/1:1 SUP, ALTERNATE BITE/SIP Routine Orders/Code Status Suppository Type: Dulcolax 10mg Suppository Frequency: Daily PRN Routine Lab Work: BMP (BMP in 1 week) Code Status: DNRCC-A (No intubation) Therapies Weight Bearing: Weight bearing as tolerated Extremity Affected:: Bilateral Lower Physical Therapy: Eval and Treat Occupational Therapy: Eval and Treat Speech Therapy: Eval and Treat Problem/Diagnosis (1) Acute kidney injury: Status: Acute Code(s): N17.9 - Acute kidney failure, unspecified (2) Chronic kidney disease (CKD): Status: Chronic Code(s): N18.9 - Chronic kidney disease, unspecified Comment: stable (3) Fall: Status: Acute Code(s): W19.XXXA - Unspecified fall, initial encounter (4) Hypothyroidism: Status: Chronic Code(s): E03.9 - Hypothyroidism, unspecified Comment: Patient is clinically euthyroid (5) Atrial fibrillation: Status: Acute Code(s): I48.91 - Unspecified atrial fibrillation (6) Elevated troponin: Status: Acute Code(s): R77.8 - Other specified abnormalities of plasma proteins (7) Weakness: Status: Acute Code(s): R53.1 - Weakness (8) Dehydration: Status: Acute Code(s): E86.0 - Dehydration Allergies/Procedures Done in Hospital Allergies fluoxetine HCl [From Prozac] Allergy (Verified 02/04/23 10:41) Unknown Type of Care/Length of Stay Estimated LOS: Convalescent Care Less Than 30 days Type of Care Needed: Skilled Rehab Potential: Good Prognosis: Good Additional Orders/Day of Discharge Day of Discharge: 02/14/23 Dietary and Speech Recommendations Dietitian Recommendations/Changes: Recommend liberalized regular diet as tolerated with consistency/texture as per INTERNATIONAL FLIGHT ATTENDANT. Enteral nutrition support if PO diet is contraindicated after MBS. Offer ensure plus high protein PO as able for repletion if able to take PO. Optimize PO to prevent further weight loss with ONS as able. Speech Linguistic Eval Summary: pt did not state name despite max cues. Pt shook her head no to 2 questions, but did not verbalize any responses Discharge Plan Admission Admit Date/Time: 02/04/23 13:14 Primary Reason for Your Visit: Rhabdomyolysis Attending Provider: Andriy Oleary Primary Care Provider: Roni Greer Consulting Providers: Yamileth Sunshine; Keyur Manzano Discharge Orders/Prescriptions Prescriptions: New sennosides-docusate sodium [Stool Softener-Stimulant Laxat] 8.6-50 mg Tablet 2 tab PO BID PRN PRN (Reason: Constipation) Qty: 0 0RF metoprolol tartrate 25 mg Tablet 25 mg PO BID Qty: 0 0RF Continued docusate sodium 100 mg capsule 100 mg PO DAILY Qty: 90 2RF Patient Comments: CONSITPATION levothyroxine 25 mcg tablet 25 mcg PO DAILY Qty: 90 3RF allopurinol 100 mg tablet 100 mg PO DAILY Qty: 90 3RF calcium carbonate [Calcium 600] 600 mg calcium (1,500 mg) tablet 600 mg PO DAILY Qty: 90 2RF potassium chloride 10 mEq tablet extended release 10 meq PO BID Qty: 180 1RF tamsulosin [Flomax] 0.4 mg capsule 0.8 mg PO DAILY apixaban 5 mg tablet 5 mg PO BID pantoprazole [Protonix] 40 mg tablet,delayed release (DR/EC) 40 mg PO DAILY isosorbide mononitrate 60 mg tablet extended release 24 hr 60 mg PO DAILY clopidogrel [Plavix] 75 mg tablet 75 mg PO DAILY magnesium oxide 400 mg (241.3 mg magnesium) tablet 400 mg PO DAILY finasteride 5 mg tablet 5 mg PO DAILY lamotrigine [Lamictal] 200 mg tablet 200 mg PO BID oxybutynin chloride 10 mg tablet extended release 24hr 10 mg PO DAILY Qty: 30 3RF Held phentermine [Adipex-P] 37.5 mg tablet 37.5 mg PO DAILY Qty: 30 0RF Hold Instructions: Hold until kidney function returns to baseline. Rx Instructions: must administer 30 minutes before or 1-2 hours after breakfast Farxiga 10 mg tablet 10 mg PO DAILY Hold Instructions: Hold until kidney function returns to baseline semaglutide 0.25 mg or 0.5 mg (2 mg/3 mL) pen injector 0.25 mg subcut QWEEK Hold Instructions: Hold for kidney dysfunction Rx Instructions: for 4 weeks metformin 500 mg tablet 500 mg PO BID Hold Instructions: Hold until kidney function returns to baseline. atorvastatin 80 mg tablet 80 mg PO QHS Hold Instructions: Hold for 1 week and then decrease to 40 mg daily. Discontinued pravastatin 20 mg tablet 20 mg PO QHS Qty: 90 3RF celecoxib 200 mg capsule 200 mg PO QDAY Qty: 90 2RF hydrochlorothiazide 12.5 mg tablet 25 mg PO QAM Farxiga 10 mg tablet 10 mg PO DAILY furosemide [Lasix] 20 mg tablet 20 mg PO DAILY metoprolol tartrate 25 mg tablet 75 mg PO BID Referrals / Follow Up: Ghassan Escamilla MD [Med Staff - Active Staff] - Within 1 Month (For PAFIB) Roni Greer DO [Primary Care Provider] - Keyur Manzano MD [Med Staff - Consulting] - Within 2 Weeks Disposition Disposition (needs filled in before D/C Order can be placed): Intermediate Facility (2) Chronic kidney disease (CKD) Qualifiers: Chronic kidney disease stage: stage 2 (mild) Qualified Code(s): N18.2 - Chronic kidney disease, stage 2 (mild) (3) Fall Qualifiers: Encounter type: initial encounter Qualified Code(s): W19.XXXA - Unspecified fall, initial encounter (4) Hypothyroidism Qualifiers: Hypothyroidism type: acquired Qualified Code(s): E03.9 - Hypothyroidism, unspecified (5) Atrial fibrillation Qualifiers: Atrial fibrillation type: paroxysmal Qualified Code(s): I48.0 - Paroxysmal atrial fibrillation
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
[2023-02-14 10:27] VITALS: BP 104/59; PULSE 85; RESP 18; TEMP 36.6; O2SAT 98
--- NOTE | 2023-02-14 10:31 | CASEMGMT ---
Patient is ready for discharge to [facility]. SW sent orders to [facility] via [facility]. Elma Laguerre TEA BLENDER AGUSTIN
[2023-02-14 10:44] VITALS: O2SAT 91
--- NOTE | 2023-02-14 11:03 | CASEMGMT ---
Discharge Planning Transport time sent to [facility] via [facility]. Physicians will transfer by cot at noon. Patients sister and nursing notified. Call was placed to sonGanga, phone but message not left d/t no recording verifying recipient.
--- NOTE | 2023-02-14 11:06 | CASEMGMT ---
Discharge Planning Covid results sent to [facility] via [employer]. Akua Salgado, Discharge Planning Asst.
--- NOTE | 2023-02-14 11:08 | NURSING ---
Report called to nurse Wallace for pt to be d/c to [facility].
--- NOTE | 2023-02-14 12:17 | PCM.CONS.R ---
Assessment & Plan Assessment/Plan (1) Acute kidney injury: (2) Chronic kidney disease (CKD): QUALIFIERS: Chronic kidney disease stage: stage 2 (mild) Qualified Code(s): N18.2 - Chronic kidney disease, stage 2 (mild) (3) Fall: QUALIFIERS: Encounter type: initial encounter Qualified Code(s): W19.XXXA - Unspecified fall, initial encounter PLAN: Plan This is an 82-year-old female with past medical history significant for diabetes mellitus type 2, hypothyroidism, A-fib, hypertension, chronic systolic heart failure admitted to the hospital after sustaining a fall. No acute process or fracture seen. Nephrology consulted for OLIVER. In reviewing past creatinine trends, patient has had mild elevated serum creatinine dating back to at least 2014. June 03, 2020 serum creatinine 1.36, 04/26/2022 serum creatinine 1.48, 02/04/2023 creatinine 1.99--> 02/08/2023 creatinine 1.51 --> February 12 creatinine 1.70 mg/dL--> February 13 SCr 1.86 and today SCr 1.62. Urine on admission showed 30 protein, no RBC, occult blood 25. CK 971 on admission, last checked on February 04 and improved to 858. Patient was on IV fluids. Likely fluctuation in serum creatinine from hemodynamics. Blood pressures have been acceptable last few days. Serum creatinine of 1.6 is possible baseline. Overall renal function stable, volume status acceptable and patient appears near euvolemic, potassium and acid-base acceptable as well. No acute indication for STOCK OR DELIVERY CLERK. Will arrange for hospital follow up and recommend off diuretics, NSAIDs for now. She is also off Metformin. Patient is being discharged to [facility] today. HPI Consult Data Date of Consult: 02/14/23 HPI Narrative HPI Narrative: NOEMY FITZGERALD, is a 82 F who was brought to the emergency room after sustaining a fall. Patient was admitted for further evaluation and treatment. Patient has past medical history significant for hypothyroidism, A-fib, hypertension, chronic systolic heart failure. Work-up in the emergency room included brain CT, cervical spine CT, shoulder and pelvic x-ray which did not show any acute process and chest x-ray clear. Lab work in the emergency room showed creatinine of 1.99, elevated troponin of 515, CK of 971. Patient was started on IV fluids admitted for further evaluation and treatment. Nephrology consulted for OLIVER. Today patient is being discharged back to [facility]. Patient has difficult time recalling recent events. No recent nausea, vomiting or diarrhea. [facility], [facility] Medical History Abnormal stress test Anemia Arthritis Atrial fibrillation with RVR (12/03/14) Bray angioma Chronic kidney disease (CKD) Chronic systolic (congestive) heart failure Debility Dependent edema Eczema Edema Hemorrhoids History of DVT (deep vein thrombosis) History of non-ST elevation myocardial infarction (NSTEMI) (12/03/14) HLD (hyperlipidemia) Hyperpigmentation Hypomagnesemia Hypothyroidism Inactivity Leg edema Leg swelling Non-ischemic cardiomyopathy Obesity Osteoporosis Osteoporosis Postoperative atrial fibrillation (12/03/14) Postphlebitic syndrome with inflammation Rosacea Syncope Weight loss, abnormal Home Medications docusate sodium 100 mg capsule 100 mg PO DAILY stool softener #90 caps 10/25/17 [Rx Last Taken Unknown] levothyroxine 25 mcg tablet 25 mcg PO DAILY thyroid #90 tabs 01/04/22 [Rx Last Taken Unknown] allopurinol 100 mg tablet 100 mg PO DAILY afib #90 tabs 06/26/22 [Rx Last Taken Unknown] oxybutynin chloride 10 mg tablet,extended release 24 hr 10 mg PO DAILY overactive bladder #30 tabs 07/04/22 [Rx Last Taken Unknown] calcium carbonate 600 mg calcium (1,500 mg) tablet (Calcium) 600 mg PO DAILY supplement #90 tabs 09/27/22 [Rx Last Taken Unknown] phentermine 37.5 mg tablet (Adipex-P) 37.5 mg PO DAILY weight loss #30 tabs 01/16/23 [Rx Last Taken Unknown] potassium chloride 10 mEq tablet,extended release 10 meq PO BID supplement #180 tabs 01/16/23 [Rx Last Taken Unknown] apixaban 5 mg tablet 5 mg PO BID thinner 02/05/23 [History Last Taken Unknown] atorvastatin 80 mg tablet 80 mg PO QHS cholesterol 02/05/23 [History Last Taken Unknown] clopidogrel 75 mg tablet (Plavix) 75 mg PO DAILY platelets 02/05/23 [History Last Taken Unknown] dapagliflozin propanediol 10 mg tablet (Farxiga) 10 mg PO DAILY Diabetes 02/05/23 [History Last Taken Unknown] finasteride 5 mg tablet 5 mg PO DAILY urination 02/05/23 [History Last Taken Unknown] isosorbide mononitrate 60 mg tablet,extended release 24 hr 60 mg PO DAILY bp 02/05/23 [History Last Taken Unknown] lamotrigine 200 mg tablet (Lamictal) 200 mg PO BID anti seizure 02/05/23 [History Last Taken Unknown] magnesium oxide 400 mg (241.3 mg magnesium) tablet 400 mg PO DAILY supplement 02/05/23 [History Last Taken Unknown] metformin 500 mg tablet 500 mg PO BID dm 02/05/23 [History Last Taken Unknown] pantoprazole 40 mg tablet,delayed release (Protonix) 40 mg PO DAILY Gerd 02/05/23 [History Last Taken Unknown] semaglutide 0.25 mg or 0.5 mg (2 mg/3 mL) subcutaneous pen injector 0.25 mg subcut QWEEK inject 02/05/23 [History Last Taken Unknown] tamsulosin 0.4 mg capsule (Flomax) 0.8 mg PO DAILY urination 02/05/23 [History Last Taken Unknown] metoprolol tartrate 25 mg tablet 25 mg PO BID #0 tabs 02/13/23 [Rx Last Taken Unknown] sennosides 8.6 mg-docusate sodium 50 mg tablet (Stool Softener-Stimulant Laxative) 2 tab PO BID PRN PRN Constipation #0 tabs 02/13/23 [Rx Last Taken Unknown] Allergy/AdvReac Type Severity Reaction Status Date / Time fluoxetine HCl [From Prozac] Allergy Unknown Verified 02/04/23 10:41 Family History Mother Hypertension Heart disease Colon cancer Surgical History History of knee replacement History of vein stripping Social History Smoking Status: Former smoker how long ago did patient quit smokin alcohol intake: current alcohol intake frequency: holidays/special occasions only substance use type: does not use what type of physical activity do you participate in: aerobics and weight training frequency: 3-4 times per week ROS ROS Narrative As in past medical history and HPI Physical Exam Narrative Alert to name. No apparent distress Lung sounds clear anteriorly and posteriorly S1, S2, RRR Abdomen soft, nontender No edema Medical Records Data Medical Nutrition Assessment Dietitian: Malnutrition Criteria Met Start: 02/12/23 16:21 Freq: Status: Active Protocol: Document 02/12/23 16:22 RMA (Rec: 02/12/23 16:22 RMA [id number]) Nutrition Malnutrition Evidence of Malnutrition Exists Yes Malnutrition (severe): Acute Illness/Injury Evidenced By Suboptimal Energy Intake ( Severe),Weight Loss (Severe) Intake Problem Inadequate Oral Intake Etiology related to difficulty swallowing Signs/Symptoms as evidenced by NPO/MBS and weight loss~3% x 1 week Status Active Problem Clinical Problem Acute Disease or Injury Related Malnutrition Etiology Severe protein-calorie malnutrition in the context of acute disease related to inadequate oral intake and difficulty swallowing Signs/Symptoms as evidenced by NPO, weight loss~3% x 1 week and taking less than 50% meals Status Active Problem Recommendation Dietitian Recommendations/Changes Recommend liberalized regular diet as tolerated with consistency/texture as per FORM TAMPER . Enteral nutrition support if PO diet is contraindicated after MBS. Offer ensure plus high protein PO as able for repletion if able to take PO. Optimize PO to prevent further weight loss with ONS as able. Lab / Micro Data 02/12/23 05:50 02/14/23 05:59 Labs: Laboratory Results - last 24 hr 02/13/23 15:00: Sodium 143, Potassium 4.1, Chloride 116 H, Carbon Dioxide 20.0 L, Anion Gap 7, BUN 33 H, Creatinine 1.86 H, Estim Creat Clear Calc 20.62, Est GFR (MDRD) Af Amer 33 L, Est GFR (MDRD) Non-Af 27 L, BUN/Creatinine Ratio 17.7, Glucose 143 H, Calcium 9.3, Total Creatine Kinase 390 H 02/14/23 05:59: Sodium 142, Potassium 3.8, Chloride 113 H, Carbon Dioxide 23.0, Anion Gap 6, BUN 29 H, Creatinine 1.62 H, Estim Creat Clear Calc 23.68, Est GFR (MDRD) Af Amer 39 L, Est GFR (MDRD) Non-Af 32 L, BUN/Creatinine Ratio 17.9, Glucose 132 H, Calcium 8.7 Micro: Microbiology 02/14/23 10:20 Nasal Secretion SARS-CoV-2 Antigen (Rapid) - Final
== END 2023-02-14 12:20 | disposition skilled nursing facility (03) | DRG 299 ==
LOC: ED 12:28 → PCU 12:39
PROVIDERS: Admitting Provider Internal Medicine; Emergency Provider Emergency Medicine; PCP Family Medicine; Visit Provider Internal Medicine
DX: I82.4Y2 Acute embolism and thrombosis of unspecified deep veins of left proximal lower extremity (principal); G92.8 Other toxic encephalopathy; E43 Unspecified severe protein-calorie malnutrition; N17.9 Acute kidney failure, unspecified; F05 Delirium due to known physiological condition; E87.0 Hyperosmolality and hypernatremia; I13.0 Hypertensive heart and chronic kidney disease with heart failure and stage 1 through stage 4 chronic kidney disease, or unspecified chronic kidney disease; I50.22 Chronic systolic (congestive) heart failure; I42.8 Other cardiomyopathies; E86.0 Dehydration; I48.0 Paroxysmal atrial fibrillation; E11.22 Type 2 diabetes mellitus with diabetic chronic kidney disease; E03.9 Hypothyroidism, unspecified; E78.5 Hyperlipidemia, unspecified; E87.6 Hypokalemia; E87.8 Other disorders of electrolyte and fluid balance, not elsewhere classified; N18.2 Chronic kidney disease, stage 2 (mild); W19.XXXA Unspecified fall, initial encounter; Z87.891 Personal history of nicotine dependence; R77.8 Other specified abnormalities of plasma proteins; R09.02 Hypoxemia; Z79.01 Long term (current) use of anticoagulants; Z66 Do not resuscitate; Z79.84 Long term (current) use of oral hypoglycemic drugs; T42.4X5A Adverse effect of benzodiazepines, initial encounter; R13.10 Dysphagia, unspecified
CPT/HCPCS: 36415; 36600; 70450; 71045; 72125; 72170; 73030; 74230; 80048; 80053; 81001; 82436; 82550; 82570; 82803; 83735; 83880; 84100; 84133; 84300; 84484; 84540; 85025; 85379; 85610; 85730; 87811; 92526; 92610; 92611; 93005; 93308; 93970; 97110; 97116; 97162; 97166; 97530; 97535; 99285; J7030; J7120; Q9957; A4216; J1940